=== PATIENT | female | born 1960 | race Caucasian/White ===

== ENCOUNTER → 2016-09-22 | Outpatient (CLI) | payer BC, OTHER ==
[~2016-09-22] MED LIST: ASCO500T16 PO; ATOR-22 PO; ATV/1 PO; BUPR150T47 PO; CALCTAB5 PO; CETI10TA84 PO; CHOL2000 PO; CPXI SQ; CYCL0.052 OPB; GADAVIST IV PRN; MTR500 PO; MULT-506 PO; NRN600 PO; RANI300T PO; RIZA10TA18 PO; RXC5 PO; SNG10 PO; ZCR40 PO; ZLF/100 PO
--- NOTE | 2016-09-22 10:55 | DIAGNOSTIC IMAGING REPORT ---
BRAIN COMBO FOR MS CLINICAL HISTORY: Multiple sclerosis. COMPARISON STUDY: MRI of the brain January 15, 2016. TECHNIQUE: Utilizing 1.5 Mariela magnet and dedicated coil, multiplanar, multiecho imaging of the brain was performed pre and postcontrast administration according to the multiple sclerosis protocol. Injection of 6.8 cc of Gadavist IV was uneventful. FINDINGS: There are no areas of restricted diffusion. No acute intracranial hemorrhage, midline shift or mass effect is present. Ventricular system is normal. Basilar cisterns are patent. There are no extra-axial collections. Flow-voids for the major intracranial vessels are present. Innumerable subcortical and periventricular white matter T2 hyperintense foci are similar to exam of January 15, 2016. No enhancement is identified to suggest active demyelination. Calvarial signal is normal. Orbits and sinuses are unremarkable. There is no intracranial mass. IMPRESSION: 1. No acute intracranial findings. No change in appearance of the brain. 2. No change in innumerable white matter T2 hyperintense foci since MRI of January 15, 2016. These suggest foci of nonspecific demyelination. Electronically signed by: Junior Villegas M.D. 09/22/2016 10:54 AM Dictated Date/Time: 09/22/2016 10:47 AM
--- NOTE | 2016-09-22 11:02 | DIAGNOSTIC IMAGING REPORT ---
MRI OF THE CERVICAL SPINE WITH AND WITHOUT CONTRAST CLINICAL HISTORY: Multiple sclerosis. COMPARISON: MRI of the cervical spine January 20, 2015. TECHNIQUE: Utilizing a 1.5 Mariela magnet and dedicated coil, multiplanar, multiecho imaging of the cervical spine was performed before and after intravenous administration of 6.8 of Gadavist. FINDINGS: This exam is compromised by mild motion artifact. Cervical cord signal is suboptimally assessed on this exam but appears normal. There is no intracanalicular mass or fluid collection. There is no abnormal cord enhancement. Vertebral body heights are maintained. There is no suspicious marrow replacement. Paravertebral soft tissues are unremarkable. C2-C3: The central canal and neural foramen are patent. C3-C4: The central canal is patent. There is mild to moderate narrowing of the right neural foramen due to uncovertebral hypertrophy. C4-C5: The central canal and neural foramen are patent. C5-C6: A small central disc protrusion results in mild narrowing of the central canal. The neural foramen are patent. C6-C7: The central canal and neural foramen are patent. C7-T1: The central canal and neural foramen are patent. IMPRESSION: 1. No cervical cord signal abnormality identified. 2. Study mildly compromised by motion artifact. 3. Mild multilevel degenerative changes of the cervical spine, similar to exam of January 20, 2015. Electronically signed by: Junior Villegas M.D. 09/22/2016 11:01 AM Dictated Date/Time: 09/22/2016 10:55 AM
== END | disposition home or self-care (01) ==
LOC: C.MRIBC 08:40
PROVIDERS: ATTEND Psychiatry & Neurology Neurology
DX: G35 Multiple sclerosis (principal)

== ENCOUNTER → 2016-10-15 | Outpatient (CLI) | payer BC, OTHER ==
[~2016-10-15] MED LIST changes: -GADAVIST IV PRN; -MTR500 PO; -RIZA10TA18 PO; -RXC5 PO; -ZCR40 PO
[2016-10-15 14:41] LABS: BASO % 0.3 %; BASO ABS # 0.02 K/uL (0-0.2); COMPLETE YES; EOS % 4.6 %; HEMATOCRIT 41.9 % (37-47); IG% 0.5 %; LYMPH % 22.6 %; LYMPH ABS # 1.66 K/uL (1.2-3.4); MEAN CELL VOLUME 93.9 fL (80-100); MEAN CORPUSCULAR HEMOGLOBIN 32.3 pg (25-34); MEAN CORPUSCULAR HGB CONC 34.4 g/dl (32-36); MEAN PLATELET VOLUME 9.4 fL (7.4-10.4); MONO % 7.9 %; NEUT % 64.1 %; PLATELET COUNT 217 K/uL (130-400); RED BLOOD COUNT 4.46 M/uL (4.2-5.4); WHITE BLOOD COUNT 7.36 K/uL (4.8-10.8)
[2016-10-15 14:56] LABS: ALT/SGPT 53 U/L (12-78); AST/SGOT 25 U/L (15-37)
== END | disposition home or self-care (01) ==
LOC: C.LABBC 09:55
DX: E78.5 Hyperlipidemia, unspecified (principal)

== ENCOUNTER → 2016-11-18 | Outpatient (CLI) | payer OTHER, BC ==
[~2016-11-18] MED LIST changes: +GADAVIST IV PRN
--- NOTE | 2016-11-18 12:30 | DIAGNOSTIC IMAGING REPORT ---
MRI OF THE THORACIC SPINE COMBO CLINICAL HISTORY: Multiple sclerosis. Lower extremity weakness. COMPARISON STUDY: MRI of the thoracic spine dated 01/26/2010. TECHNIQUE: MRI of the thoracic spine is performed utilizing various T1 and T2-weighted sequences in the axial and sagittal planes. Contrast-enhanced sequences are acquired following the IV administration of 6.5 cc of Gadavist. FINDINGS: Vertebral body height and alignment are maintained throughout the thoracic spine. Normal marrow signal intensity is preserved throughout the visualized bony structures. No destructive bony process is seen. The transverse and spinous processes are intact as imaged. There is mild degenerative disc desiccation and loss of height throughout the thoracic spine. Small posterior disc bulges are seen at T5-T6, T6-T7, and T7-T8. There is no large disc herniation or significant central canal stenosis. No significant neural foraminal stenosis is seen throughout the thoracic spine. Small hemangiomas are again seen in the bodies of T9 and T10. The thoracic spinal cord is normal in morphology and signal intensity. The conus medullaris terminates at the level of L1. There is no abnormal cord enhancement suggested on the postcontrast images. The paraspinous soft tissues are within normal limits. The lung parenchyma is grossly unremarkable but not well evaluated by MRI. IMPRESSION: 1. The thoracic spinal cord is normal in morphology and signal intensity. No abnormal enhancement is suggested on the postcontrast images. 2. Minimal degenerative disc disease as above. There is no disc herniation, central canal stenosis, or neural foraminal narrowing seen throughout the lumbar region. Dictated: 11/18/2016 12:13 PM Transcribed: 11/18/2016 12:30 PM Kavon Electronically signed by: Lee Mittal M.D. 11/18/2016 12:32 PM Dictated Date/Time: 11/18/2016 12:13 PM
== END | disposition home or self-care (01) ==
LOC: C.MRIBC 10:43
PROVIDERS: ATTEND Psychiatry & Neurology Neurology
DX: G35 Multiple sclerosis (principal); R29.898 Other symptoms and signs involving the musculoskeletal system

== ENCOUNTER → 2016-12-27 | Outpatient (CLI) | payer OTHER, BC ==
[~2016-12-27] MED LIST changes: -GADAVIST IV PRN
--- NOTE | 2016-12-29 12:33 | MAMMOGRAPHY REPORT ---
BILATERAL DIGITAL SCREENING MAMMOGRAM TOMOSYNTHESIS WITH CAD: 12/27/2016 CLINICAL HISTORY: Routine screening. Patient has no complaints. TECHNIQUE: Breast tomosynthesis in addition to standard 2D mammography was performed. Current study was also evaluated with a Computer Aided Detection (CAD) system. COMPARISON: Comparison is made to exams dated: 12/25/2015 mammogram, 07/30/2015 mammogram, 01/27/2015 mariah mogram, 12/30/2014 mammogram, 12/23/2014 mammogram, and 12/20/2013 mammogram - [facility] er. BREAST COMPOSITION: There are scattered areas of fibroglandular density in both breasts. FINDINGS: The breast parenchymal pattern is similar to prior exams. No suspicious mass, architectur al distortion or cluster of microcalcifications is seen. IMPRESSION: ACR BI-RADS CATEGORY 1: NEGATIVE There is no mammographic evidence of malignancy. A 1 year screening mammogram is recommended. The pa tient will receive written notification of the results. Approximately 10% of breast cancers are not detected with mammography. A negative mammographic report should not delay biopsy if a clinically suggestive mass is present. Antonietta Santana M.D. ay/:12/27/2016 16:29:34 Banking Supervisor: Trupti BRAGA(Kali)([place]al)([place]), [facility] letter sent: Normal 1/2 BI-RADS Code: ACR BI-RADS Category 1: Negative
== END | disposition home or self-care (01) ==
LOC: C.MAMM 11:22
DX: Z12.31 Encounter for screening mammogram for malignant neoplasm of breast (principal)

== ENCOUNTER → 2017-03-25 | Outpatient (CLI) | payer OTHER, BC | END | disposition home or self-care (01) | LOC: C.RDSM 07:40 | PROVIDERS: ATTEND Physical Medicine & Rehabilitation Sports Medicine | DX: M25.561 Pain in right knee (principal) ==

== ENCOUNTER → 2017-04-13 | Outpatient (CLI) | payer BC, OTHER ==
[2017-04-13 11:39] LABS: ALT/SGPT 53 U/L (12-78); AST/SGOT 29 U/L (15-37); BLOOD UREA NITROGEN 16 mg/dl (7-18); BUN/CREATININE RATIO 14.6 (10-20); CALCIUM 9.2 mg/dl (8.5-10.1); CARBON DIOXIDE 27 mmol/L (21-32); CHLORIDE 105 mmol/L (98-107); CHOLESTEROL 133 mg/dl (0-200); CREATININE 1.07 mg/dl (0.60-1.20); GLUCOSE 90 mg/dl (70-99); POTASSIUM 4.2 mmol/L (3.5-5.1); SODIUM 139 mmol/L (136-145); TRIGLYCERIDES 116 mg/dl (0-150); VERY LOW DENSITY LIPOPROT CALC 23 mg/dl
[2017-04-13 11:42] LABS: CHOLESTEROL/HDL RATIO 2.7; HDL CHOLESTEROL 49 mg/dl; LDL CHOLESTEROL CALCULATED 61 mg/dl
== END | disposition home or self-care (01) ==
LOC: C.LABBC 08:54
DX: G35 Multiple sclerosis (principal); E78.5 Hyperlipidemia, unspecified; E55.9 Vitamin D deficiency, unspecified

== ENCOUNTER → 2017-10-07 | Outpatient (CLI) | payer BC, OTHER ==
[2017-10-07 13:45] LABS: BASO % 0.6 %; BASO ABS # 0.04 K/uL (0-0.2); EOS % 4.8 %; EOS ABS # 0.34 K/uL (0-0.5); HEMATOCRIT 41.6 % (37-47); HEMOGLOBIN 14.1 g/dL (12.0-16.0); IG# 0.02 K/uL (0.00-0.02); LYMPH % 24.5 %; LYMPH ABS # 1.75 K/uL (1.2-3.4); MEAN CELL VOLUME 91.6 fL (80-100); MEAN CORPUSCULAR HEMOGLOBIN 31.1 pg (25-34); MEAN CORPUSCULAR HGB CONC 33.9 g/dl (32-36); MEAN PLATELET VOLUME 9.6 fL (7.4-10.4); MONO % 8.3 %; MONO ABS # 0.59 K/uL (0.11-0.59); NEUT % 61.5 %; PLATELET COUNT 244 K/uL (130-400); RED CELL DISTRIBUTION WIDTH CV 12.9 % (11.5-14.5); RED CELL DISTRIBUTION WIDTH SD 43.3 fL (36.4-46.3); WHITE BLOOD COUNT 7.14 K/uL (4.8-10.8)
[2017-10-07 14:19] LABS: ALBUMIN 3.9 gm/dl (3.4-5.0); ALT/SGPT 41 U/L (12-78); AST/SGOT 25 U/L (15-37); BLOOD UREA NITROGEN 15 mg/dl (7-18); CALCIUM 9.4 mg/dl (8.5-10.1); CARBON DIOXIDE 26 mmol/L (21-32); CREATININE 1.05 mg/dl (0.60-1.20); GLUCOSE 93 mg/dl (70-99); POTASSIUM 3.9 mmol/L (3.5-5.1); SODIUM 139 mmol/L (136-145); TOTAL PROTEIN 6.7 gm/dl (6.4-8.2)
[2017-10-07 14:20] LABS: ALKALINE PHOSPHATASE 75 U/L (45-117)
[2017-10-17 16:44] LABS: VARICELLA ZOS VIR IGM AB <=0.90 (<=0.90)
== END | disposition home or self-care (01) ==
LOC: C.LABBC 09:10
DX: G35 Multiple sclerosis (principal)

== ENCOUNTER → 2017-10-11 | Outpatient (CLI) | payer BC, OTHER | END | disposition home or self-care (01) | LOC: C.CPL 12:00 | PROVIDERS: ATTEND Psychiatry & Neurology Neurology | DX: G35 Multiple sclerosis (principal) ==

== ENCOUNTER → 2017-10-17 | Outpatient (CLI) | payer BC, OTHER ==
[~2017-10-17] MED LIST changes: +GADAVIST IV PRN
--- NOTE | 2017-10-17 14:28 | DIAGNOSTIC IMAGING REPORT ---
MRI CERVICAL SPINE COMBO CLINICAL HISTORY: G35 Multiple sclerosis MRI TECHNIQUE: Sagittal and axial T1, T2 and STIR images were obtained. Images were acquired before and after the administration of 6.5 cc of intravenous Gadavist. COMPARISON STUDY: September 22, 2016 There are no suspicious areas of marrow replacement. No intrinsic cervical cord lesions are visualized. C2-3: There is no evidence of disc bulge or focal herniation. There is no spinal or foraminal stenosis. C3-4: There is a circumferential disc bulge. There is slight effacement of the anterior subarachnoid space. There is mild right-sided foraminal narrowing C4-5: There are no disc bulges or focal herniations. There is no spinal or foraminal stenosis. C5-6 :There is a mild circumferential disc bulge. There is no significant spinal or foraminal stenosis C6-7: There is no evidence of disc bulge or focal herniation. There is no evidence of spinal or foraminal stenosis. C7-T1: There is no evidence of disc bulge or focal herniation. There is no evidence of spinal or foraminal stenosis. Postcontrast images reveal no pathologically enhancing lesions. IMPRESSION: 1. Mild multilevel spondylitic changes 2. No cervical cord lesions identified Electronically signed by: Feliciano Bender M.D. 10/17/2017 2:26 PM Dictated Date/Time: 10/17/2017 2:23 PM
--- NOTE | 2017-10-17 14:31 | DIAGNOSTIC IMAGING REPORT ---
MRI OF THE BRAIN COMBO CLINICAL HISTORY: Multiple sclerosis. COMPARISON STUDY: Previous MRIs of the brain, most recently dated 09/22/2016. TECHNIQUE: MRI of the brain was performed utilizing various T1 and T2-weighted sequences in the axial, sagittal, and coronal planes. Contrast-enhanced sequences were acquired following the administration of 6.5 cc of Gadavist. The examination is performed using the multiple sclerosis protocol. FINDINGS: Brain parenchyma: There are numerous T2 hyperintense plaques scattered throughout the subcortical and periventricular white matter. The appearance is consistent with the reported clinical history of multiple sclerosis. No abnormal enhancement is identified on the postcontrast sequences. There is no hemorrhage or mass effect. There is no restricted diffusion to suggest acute ischemia. No enhancing mass lesion is identified on the postcontrast images. Manzano-white matter differentiation is preserved. No extra-axial fluid collection is seen. The cerebellar tonsils are normal in configuration. Ventricles, sulci, and cisterns: Normal in configuration. Pituitary and sella: Unremarkable. Intracranial vasculature: Normal flow voids are maintained at the skull base. Orbits: The bony orbits are grossly intact. Orbital contents are normal in appearance. Sinuses and mastoids: Clear. Calvarium: Unremarkable. Cervical cord: Partially visualized cervical spinal cord is normal in morphology and signal intensity. IMPRESSION: 1. No acute intracranial abnormality. 2. Unchanged appearance of extensive white matter abnormality as compared to prior studies. The appearance is consistent with the reported clinical history of multiple sclerosis. No abnormal enhancement is seen to suggest active demyelination. Electronically signed by: Lee Mittal M.D. 10/17/2017 2:30 PM Dictated Date/Time: 10/17/2017 2:25 PM
== END | disposition home or self-care (01) ==
LOC: C.MRI 12:18
PROVIDERS: ATTEND Psychiatry & Neurology Neurology
DX: G35 Multiple sclerosis (principal)

== ENCOUNTER → 2017-10-31 | Outpatient (CLI) | payer BC, OTHER ==
[~2017-10-31] MED LIST changes: -GADAVIST IV PRN
== END | disposition home or self-care (01) ==
LOC: C.LABBC 10:23
DX: M85.9 Disorder of bone density and structure, unspecified (principal); R53.83 Other fatigue; E55.9 Vitamin D deficiency, unspecified

== ENCOUNTER → 2017-11-03 | Outpatient (CLI) | payer BC, OTHER | END | disposition home or self-care (01) | LOC: C.CPL 16:48 | PROVIDERS: ATTEND Psychiatry & Neurology Neurology | DX: G35 Multiple sclerosis (principal) ==

== ENCOUNTER 2019-02-16 15:47 | Observation (INO) ==
[2019-02-16] MEDS ORDERED: PROCHLORPERAZINE 2 ML IV ONE (17:02)
[2019-02-16] MEDS ORDERED: DiphenhydrAMINE HCL 50 MG/ML VIAL IV STA (17:02)
[2019-02-16] MEDS ORDERED: SODIUM CHLORIDE 0.9% 1000ML 1,000 ML IV ONE (17:02)
--- NOTE | 2019-02-16 17:16 | Emergency Department Note ---
History of Present Illness General Chief complaint: Illness Stated complaint: STOMACH VIRUS Source: patient Mode of arrival: ambulatory Limitations: no limitations History of Present Illness Provider Complaint: + nausea and + abdominal pain Onset (ago): day(s) 3 Description of Vomiting: + none Description of Diarrhea: + none Associated Abdominal Pain: Yes Location of pain: + epigastric Radiation: + does not radiate Severity: moderate Maximum Pain Intensity: 7 Current Pain Intensity: 7 Quality: + cramping, + aching and + sharp Pain Consistency: + intermittent Relieved By: + none Exacerbated By: + eating Context: + possible food poisoning and + history of abdominal surgery Associated symptoms: + loss of appetite and + malaise Treatments prior to arrival: + other (Zofran) HPI Narrative: This 58-year-old female patient presents the ED today, ambulatory, accompanied by her . She states she was here 3 days ago with complaints of abdominal pain, nausea, and watery diarrhea. She had eaten a meal with her the night before, and both she and her had the symptoms. The patient states her symptoms have resolved, but she continues to experience epigastric abdominal pain and nausea. She states her diarrhea has subsided and she has not had formed stool for the past 2 days. She feels that the pain is not improving. She has been eating crackers and drinking Gatorade, but does not feel that she is eating or drinking enough. She denies any fevers or vomiting. She does report nausea. She was taking Zofran which was prescribed, but that was not helping. She was also complaining of some symptoms associated with her MS and is encouraged to take steroids, but never picked them up. The patient denies any chest pain, dyspnea, headache, numbness, tingling, weakness, flank pain, urinary symptoms, or other associated symptoms. She does report dizziness. She states her MS pseudoseizures have subsided. Home Medications Home Medications Medication Instructions Recorded Confirmed Type Restasis 1 drp OPB BID 04/21/18 02/16/19 History Vitamin D3 4,000 unit PO DAILY 04/21/18 02/16/19 History aripiprazole [Abilify] 2 mg PO QAM 04/21/18 02/16/19 History ascorbic acid (vitamin C) [Vitamin 1,000 mg PO DAILY 04/21/18 02/16/19 History C] atorvastatin 20 mg PO HS 04/21/18 02/16/19 History black cohosh 540 mg PO BID 04/21/18 02/16/19 History bupropion HCl 150 mg PO BID 04/21/18 02/16/19 History calcium carbonate [Calcium 600] 1,200 mg PO DAILY 04/21/18 02/16/19 History cetirizine [Zyrtec] 10 mg PO QAM 04/21/18 02/16/19 History gabapentin 600 mg PO TID 04/21/18 02/16/19 History montelukast [Singulair] 10 mg PO QAM 04/21/18 02/16/19 History multivitamin 1 tab PO DAILY 04/21/18 02/16/19 History ranitidine HCl 300 mg PO BID 04/21/18 02/16/19 History sertraline [Zoloft] 200 mg PO QAM 04/21/18 02/16/19 History melatonin 5 mg PO HS PRN 10/25/18 02/16/19 History Symbicort 2 puff INHALATION BID 11/23/18 02/16/19 History levalbuterol HFA 45 mcg/actuation 2 inh INHALATION BID PRN 01/30/19 02/16/19 History aerosol inhaler levothyroxine 75 mcg capsule 75 mcg PO QAM 01/30/19 02/16/19 History lorazepam 1 mg tablet 1 mg PO TID PRN tab 01/30/19 02/16/19 History omeprazole 40 mg PO QAM 02/16/19 02/16/19 History Allergies Allergy/AdvReac Type Severity Reaction Status Date / Time mivacurium Allergy Severe TONGUE Verified 02/16/19 18:16 SWELLS morphine Allergy Severe LOCAL Verified 02/16/19 18:16 REACTION TO IV PUSH clindamycin Allergy Intermediate HIVES Verified 02/16/19 18:16 Quinolones Allergy Intermediate HIVES Verified 02/16/19 18:16 cefaclor Allergy Mild RASH, HAS Verified 02/16/19 18:16 TOLERATED AUGMENTIN W/O RXN tetracycline Allergy Mild Unknown Verified 02/16/19 18:16 carbamazepine Allergy Unknown Unknown Verified 02/16/19 18:16 cevimeline Allergy Unknown anxious Verified 02/16/19 18:16 Cipro Allergy Unknown itchy Verified 09/29/16 13:02 ciprofloxacin Allergy Unknown itchy Verified 02/16/19 18:16 doxycycline Allergy Unknown sores on Verified 02/16/19 18:16 tongue fexofenadine Allergy Unknown itchy Verified 02/16/19 18:16 fish oil Allergy Unknown tongue Verified 02/16/19 18:16 swells and trouble breathing meloxicam Allergy Unknown rash Verified 02/16/19 18:16 metoclopramide Allergy Unknown itchy Verified 02/16/19 18:16 phenytoin Allergy Unknown dizzy Verified 02/16/19 18:16 pregabalin Allergy Unknown rash Verified 02/16/19 18:16 vancomycin Allergy Unknown RASH Verified 02/16/19 18:16 azithromycin Allergy Swelling Verified 02/16/19 18:16 of Lip/Tongue/Throat Flu Virus Vaccine AdvReac Severe excerbation Uncoded 02/16/19 18:16 of multiple sclerosis Past Med/Surg History Medical History Asthma (Chronic) HX OF CHRONIC BRONCHIAL ASTHMA. PT IS CURRENTLY FOLLOWING [facility]. AND HAD BRONCH OCTOBER 2018 Diverticulitis (Chronic) Pseudoseizure (Acute) R/T AN ACUTE MS ATTACK, STATES THAT WITH AN ATTACK HER EXTREMITIES "FLAIL". PT HAS HAD TESTING/NEURO WORK UP MS (multiple sclerosis) (Chronic) Diverticular disease GERD (gastroesophageal reflux disease) Hyperlipidemia Hypothyroidism Surgical History History of arthroscopy RT KNEE 2015 History of bowel resection History of bronchoscopy History of colonoscopy Social History Preferred Language: Estonian Communication Ability: Effective Payroll Benefits Clerk Required: No Beliefs That Will Affect Care: None marital status: Current Living Situation: Spouse current occupational status: disabled Other Information That Helps Us Care for You: No Feels Safe at Home: Yes Safety Concerns: Feels Safe At This Time Smoking Status: Never smoker Cigarettes Per Day: 0 ; Second Hand Exposure: No ; Hx Alcohol Use: No Hx Substance Use: No Review of Systems A total of 10 systems reviewed and were otherwise negative Physical Exam Vital Signs: Vital Signs - 24 hr 02/16/19 16:16 02/16/19 17:35 02/16/19 17:39 Temperature 36.6 C Temperature Source Oral Sepsis Recent Feve r Within 48 Hours No Sepsis Action Take n by Nursing No Action Required Pulse Rate 71 71 68 Pulse Rate [Right] Pulse Rate from Sp O2 Sensor Pulse Rhythm Regular Regular Pulse Rhythm [Righ t] Pulse Strength Normal Pulse Strength [Ri ght] Respiratory Rate 16 16 20 Respiratory Effort / Characteristics Respiratory Depth Normal Respiratory Patter n Regular Blood Pressure 130/84 149/85 H Blood Pressure [Ri ght Arm] Blood Pressure Viktoria n 99 106 Blood Pressure Viktoria n [Right Arm] Blood Pressure Pos ition Sitting Blood Pressure Pos ition [Right Arm] Pulse Oximetry 92 92 96 Oxygen Delivery Me thod Room Air Room Air Room Air 02/16/19 18:00 02/16/19 18:30 02/16/19 20:00 Temperature Temperature Source Sepsis Recent Feve r Within 48 Hours Sepsis Action Take n by Nursing Pulse Rate 70 74 Pulse Rate [Right] 75 Pulse Rate from Sp O2 Sensor 73 75 Pulse Rhythm Pulse Rhythm [Righ t] Regular Pulse Strength Pulse Strength [Ri ght] Normal Respiratory Rate 19 20 16 Respiratory Effort / Characteristics Non-Labored Sponta neous Respiratory Depth Normal Respiratory Patter n Blood Pressure 142/95 H 136/81 Blood Pressure [Ri ght Arm] 144/91 H Blood Pressure Viktoria n 110 99 Blood Pressure Vitkoria n [Right Arm] 108 Blood Pressure Pos ition Blood Pressure Pos ition [Right Arm] Lying Pulse Oximetry 96 96 96 Oxygen Delivery Me thod Room Air Room Air Room Air Physical Exam: VITALS: Vitals are noted on the nurse's note and reviewed by myself. Vital signs stable. GENERAL: This is a 58-year-old white female, in no acute distress, nondiaphoretic, well-developed well-nourished. SKIN: The skin was without rashes, erythema, edema, or bruising. There is no tenting of the skin. Capillary reflex less than 2 seconds. HEAD: Normocephalic atraumatic. EARS: External auditory canals clear, tympanic membranes pearly sanchez without erythema or effusion bilaterally. EYES: Pupils equal round and reactive to light and accommodation. Conjunctivae without injection, sclerae without icterus. Extraocular movements intact. NOSE: Patent, turbinates without inflammation or discharge. No sinus tenderness. MOUTH: Mucous membranes moist. Tonsils are not enlarged. Pharynx without erythema or exudate. Uvula midline. Airway patent. Tongue does not deviate. NECK: Supple without nuchal rigidity. No lymphadenopathy. No thyromegaly. Cervical spine is nontender. No JVD. HEART: Regular rate and rhythm without murmurs gallops or rubs. LUNGS: Clear to auscultation bilaterally without wheezes, rales or rhonchi. No dullness to percussion. No retractions or accessory muscle use. ABDOMEN: Positive bowel sounds x 4. Normal tympanic percussion. Epigastric tenderness palpation. Abdomen is otherwise soft, nontender, without masses or organomegaly. Manzano sign negative. No guarding or rebound tenderness. No CVA tenderness bilaterally. MUSCULOSKELETAL: No muscle atrophy, erythema, or edema noted. Full range of motion without joint tenderness in all extremities. No tenderness to palpation. Normal gait. Strength 5/5 throughout. NEURO: Patient was alert and oriented to person place and time. Normal sensat ion to light and sharp touch. No focal neurological deficits. Course The patient was seen and evaluated as above. IV access obtained, labs drawn. Patient medicated with IV fluids, Compazine, Benadryl. EKG reviewed by myself. X-rays performed and reviewed by myself and radiologist as above. Labs reviewed by myself. I did note positive troponin. CT scan of the abdomen/pelvis performed and reviewed by myself and radiologist as above. I discussed the findings with the patient at bedside. She was reassessed and notes some improvement of her nausea, but ongoing epigastric pain. Discussed the positive troponin and my concern for possible cardiac etiology of some of her symptoms. Did recommend admission. Patient was agreeable. I discussed the case with my attending. I discussed the case with Dr. Gomez, [facility] hospitalist. He did agree to see and evaluate the patient for admission. Repeat troponin and EKG reviewed. Please see hospitalist dictation regarding ongoing management care of this patient. Administered Medications Atorvastatin Calcium (Lipitor) 20 mg PO HS REHAN Stop: 03/18/19 22:56 Last Admin: 02/16/19 23:49 Dose: 20 mg Documented by: [id number] Bupropion HCl (Wellbutrin-Sr) 150 mg PO BID REHAN Stop: 03/18/19 22:56 Last Admin: 02/16/19 23:49 Dose: 150 mg Documented by: [id number] Gabapentin (Neurontin) 600 mg PO TID REHAN Stop: 03/18/19 22:56 Last Admin: 02/16/19 23:49 Dose: 600 mg Documented by: [id number] Sodium Chloride (Nss 1000ml) 1,000 mls @ 110 mls/hr IV .Q9H6M REHAN Stop: 03/18/19 22:56 Last Admin: 02/16/19 23:13 Dose: 110 mls/hr Documented by: [id number] Acetaminophen (Ofirmev) 65 mls @ 200 mls/hr IV Q6H REHAN Stop: 03/18/19 23:29 Last Admin: 02/16/19 23:54 Dose: Not Given Documented by: [id number] Ioversol (Optiray 320 100ml) 92 ml IV ONCE PRN PRN Reason: Interaction Checking Stop: 02/20/19 19:48 Last Admin: 02/16/19 19:49 Dose: 92 ml Documented by: [id number] Lorazepam (Ativan) 1 mg PO TID PRN PRN Reason: Anxiety Stop: 03/18/19 22:56 Last Admin: 02/16/19 23:57 Dose: 1 mg Documented by: [id number] Ranitidine HCl (Zantac) 300 mg PO BID REHAN Stop: 03/18/19 22:56 Last Admin: 02/16/19 23:49 Dose: 300 mg Documented by: [id number] Discontinued Medications Diphenhydramine HCl (Benadryl) 25 mg IV NOW STA Stop: 02/16/19 17:03 Last Admin: 02/16/19 18:27 Dose: 25 mg Documented by: [id number] Prochlorperazine (Compazine) 2 mls @ 1 mls/min IV ONE ONE Stop: 02/16/19 17:03 Last Admin: 02/16/19 18:27 Dose: 1 mls/min Documented by: [id number] Sodium Chloride (Nss 1000ml) 1,000 mls @ 999 mls/hr IV .Q1H1M ONE Stop: 02/16/19 18:02 Last Infusion: 02/16/19 18:55 Dose: 0 mls/hr Documented by: [id number] Admin: 02/16/19 17:43 Dose: 999 mls/hr Documented by: [id number] Acetaminophen (Ofirmev) 65 mls @ 200 mls/hr IV NOW ONE Stop: 02/16/19 23:50 Last Infusion: 02/17/19 00:17 Dose: 0 mls/hr Documented by: [id number] Admin: 02/16/19 23:50 Dose: 200 mls/hr Documented by: [id number] Medical Decision Making Differential Diagnosis + gastroenteritis, + food borne illness, + infections, + appendicitis, + diverticulitis, + inflammatory bowel disease, + GI bleed, + biliary pathology, + nausea, + vomiting, + diarrhea and + abdominal pain Medical Records Attestation: I reviewed the patient's medical records. Home Medications Current Medication List: was personally reviewed by de Laboratory Data Attestation: I reviewed the patient's lab results. No leukocytosis, anemia, thrombocytopenia. Renal, hepatic function, and electrolytes without significant abnormality. Initial troponin elevated at 0.098. Repeat troponin elevated at 0.104. Urinalysis positive for 3+ leukocyte esterase, white blood cells, epithelial cells. Lipase 77. Result diagrams: 02/16/19 17:37 02/16/19 17:37 Lab Results 02/16/19 02/16/19 02/16/19 Range/Units 17:37 17:37 20:00 WBC 8.06 (4.8-10.8) K/uL RBC 5.23 (4.2-5.4) M/uL Hgb 16.8 H (12.0-16.0) g/dL Hct 47.2 H (37-47) % MCV 90.2 (80-100) fL MCH 32.1 (25-34) pg MCHC 35.6 (32-36) g/dL RDW Std Deviation 40.7 (36.4-46.3) fL RDW Coeff of Rocio 12.4 (11.5-14.5) % Plt Count 238 (130-400) K/uL MPV 9.9 (7.4-10.4) fL Immature Gran % (Auto) 0.2 % Neut % (Auto) 55.9 % Lymph % (Auto) 32.6 % Ford % (Auto) 8.1 % Eos % (Auto) 2.7 % Baso % (Auto) 0.5 % Immature Gran # (Auto) 0.02 (0.00-0.02) K/uL Neut # (Auto) 4.50 (1.4-6.5) K/uL Lymph # (Auto) 2.63 (1.2-3.4) K/uL Ford # (Auto) 0.65 H (0.11-0.59) K/uL Eos # (Auto) 0.22 (0-0.5) K/uL Baso # (Auto) 0.04 (0-0.2) K/uL Sodium 141 (136-145) mmol/L Potassium 4.1 (3.5-5.1) mmol/L Chloride 106 (98-107) mmol/L Carbon Dioxide 27 (21-32) mmol/L Anion Gap 8.0 (3-11) BUN 18 (7-18) mg/dl Creatinine 1.08 (0.6-1.2) mg/dl Est Cr Clr Drug Dosing Not Reportable Est GFR ( Amer) 66.5 Est GFR (Non-Af Amer) 57.3 BUN/Creatinine Ratio 16.4 (10-20) Glucose 86 (70-99) mg/dl Calcium 9.2 (8.5-10.1) mg/dl Total Bilirubin 0.5 (0.2-1) mg/dl AST 38 H (15-37) U/L ALT 80 H (12-78) U/L Alkaline Phosphatase 86 (45-117) U/L Troponin I 0.098 H* (0-0.045) ng/ml Total Protein 7.7 (6.4-8.2) gm/dl Albumin 4.2 (3.4-5.0) gm/dl Globulin 3.5 (2.5-4.0) gm/dl Albumin/Globulin Ratio 1.2 (0.9-2) Lipase 77 (73-393) U/L Urine Color Yellow Urine Appearance Cloudy A (Clear) Urine pH 6.5 (4.5-7.5) Ur Specific Benton 1.013 (1.000-1.030) Urine Protein Negative (Negative) Urine Glucose (UA) Negative (Negative) Urine Ketones Negative (Negative) Urine Blood Trace H (Negative) Urine Nitrite Negative (Negative) Urine Bilirubin Negative (Negative) Urine Urobilinogen Negative (Negative) Ur Leukocyte Esterase 3+ H (Negative) Urine WBC (Auto) >30 H (0-5) /hpf Urine RBC (Auto) 0-4 (0-4) /hpf U Hyaline Cast (Auto) 1-5 (0-5) /lpf U Epithel Cells (Auto) >30 H (0-5) /lpf Urine Bacteria (Auto) Negative (Negative) Hepatitis C Ab Screen (Neg) 02/16/19 02/16/19 Range/Units 20:16 20:16 WBC (4.8-10.8) K/uL RBC (4.2-5.4) M/uL Hgb (12.0-16.0) g/dL Hct (37-47) % MCV (80-100) fL MCH (25-34) pg MCHC (32-36) g/dL RDW Std Deviation (36.4-46.3) fL RDW Coeff of Rocio (11.5-14.5) % Plt Count (130-400) K/uL MPV (7.4-10.4) fL Immature Gran % (Auto) % Neut % (Auto) % Lymph % (Auto) % Ford % (Auto) % Eos % (Auto) % Baso % (Auto) % Immature Gran # (Auto) (0.00-0.02) K/uL Neut # (Auto) (1.4-6.5) K/uL Lymph # (Auto) (1.2-3.4) K/uL Ford # (Auto) (0.11-0.59) K/uL Eos # (Auto) (0-0.5) K/uL Baso # (Auto) (0-0.2) K/uL Sodium (136-145) mmol/L Potassium (3.5-5.1) mmol/L Chloride (98-107) mmol/L Carbon Dioxide (21-32) mmol/L Anion Gap (3-11) BUN (7-18) mg/dl Creatinine (0.6-1.2) mg/dl Est Cr Clr Drug Dosing Est GFR ( Amer) Est GFR (Non-Af Amer) BUN/Creatinine Ratio (10-20) Glucose (70-99) mg/dl Calcium (8.5-10.1) mg/dl Total Bilirubin (0.2-1) mg/dl AST (15-37) U/L ALT (12-78) U/L Alkaline Phosphatase (45-117) U/L Troponin I 0.104 H* (0-0.045) ng/ml Total Protein (6.4-8.2) gm/dl Albumin (3.4-5.0) gm/dl Globulin (2.5-4.0) gm/dl Albumin/Globulin Ratio (0.9-2) Lipase (73-393) U/L Urine Color Urine Appearance (Clear) Urine pH (4.5-7.5) Ur Specific Benton (1.000-1.030) Urine Protein (Negative) Urine Glucose (UA) (Negative) Urine Ketones (Negative) Urine Blood (Negative) Urine Nitrite (Negative) Urine Bilirubin (Negative) Urine Urobilinogen (Negative) Ur Leukocyte Esterase (Negative) Urine WBC (Auto) (0-5) /hpf Urine RBC (Auto) (0-4) /hpf U Hyaline Cast (Auto) (0-5) /lpf U Epithel Cells (Auto) (0-5) /lpf Urine Bacteria (Auto) (Negative) Hepatitis C Ab Screen Neg (Neg) Imaging Data Radiologist's Impression: XR chest 1V portable CLINICAL HISTORY: epigastric pain COMPARISON STUDY: Chest radiograph February 13, 2019. FINDINGS: Lung volumes are normal. Lungs are clear. There is no pneumothorax or pleural effusion. Cardiac size is normal. Mediastinal contours are normal. There is no evidence for pulmonary edema. Minimal bibasilar opacities favor atelectasis. IMPRESSION: No acute cardiopulmonary findings. Electronically signed by: Junior Villegas M.D. 02/16/2019 5:17 PM ABDOMINAL ULTRASOUND, RIGHT UPPER QUADRANT HISTORY: RUQ/epigastric pain. COMPARISON: CT of the abdomen and pelvis September 15, 2014. FINDINGS: This exam is significantly compromised by suboptimal penetration. Hepatic echogenicity is increased. No hepatic lesions are identified. There is no biliary ductal dilatation. The common bile duct measures 4 mm in caliber. No gallstones are identified. There is no gallbladder wall thickening. Trace sludge within the gallbladder. The pancreatic body is normal. The head and tail are obscured. There is no right hydronephrosis. IMPRESSION: 1. No gallstones or biliary ductal dilatation. Trace sludge within the gallbladder. 2. Fatty infiltration of the liver. 3. Study compromised by suboptimal penetration. Electronically signed by: Junior Villegas M.D. 02/16/2019 7:[address] OF THE ABDOMEN AND PELVIS WITH CONTRAST CLINICAL HISTORY: epigastric abdominal pain, nausea COMPARISON STUDY: CT of the abdomen and pelvis September 15, 2014. Abdominal ultrasound performed earlier today. TECHNIQUE: Following IV administration of 92 mL of Optiray-320, axial images of the abdomen and pelvis were obtained from the lung bases to the proximal femurs. Images were reviewed in the axial, sagittal, and coronal planes. IV contrast was administered without complication. Automated exposure control was utilized for the study. A dose lowering technique was utilized adhering to the principles of ALARA. Oral contrast was administered. CT DOSE: 420.12 mGy.cm FINDINGS: Fatty infiltration of the liver is noted. The spleen, adrenal glands, kidneys and pancreas are normal. There is no biliary or pancreatic ductal dilatation. There is no evidence for a bowel obstruction. The appendix is normal. Caliber and wall thickness of small and large bowel are normal. An anastomosis within the distal colon is noted. No peripancreatic or pericholecystic infiltration is present. There is no ascites or lymphadenopathy. There are no suspicious osseous lesions. Major vasculature is patent. There is no hydronephrosis. IMPRESSION: 1. No acute process within the abdomen or pelvis. 2. Normal appendix. No bowel obstruction. 3. Fatty infiltration of the liver. Electronically signed by: Junior Villegas M.D. 02/16/2019 7:58 PM ECG Data Attestation: I personally reviewed and interpreted this ECG as follows: Indication: abdominal pain Rate (beats per minute): 68 Rhythm: normal sinus Findings: no T-wave inversion, no ST elevation, no acute ischemic change and no ectopy Comparison ECG Date: from (02/13/19) Change: no significant change Additional Comments: Repeat EKG at 19:56 reviewed by myself shows a normal sinus rhythm with a ventricular rate of 77 bpm. No acute ischemic changes. No ST elevation. No ectopy. Blood Pressure Blood Pressure Findings: Normal blood pressure MDM Narrative This 58-year-old female patient presents the ED with complaints of nausea, diarrhea, and epigastric abdominal tenderness. Symptoms have been ongoing for approximately 3 days, and were initially thought to be foodborne. The patient states she is not feeling any better and is having difficulty keeping down food and fluids. Her diarrhea has improved and she has been experiencing more formed stools over the past few days. She denies any chest pain or dyspnea, however her troponin while here in the ED was elevated at 0.098. There were no ST changes, and at no point did the patient experience any chest pain or dyspnea. Given the patient's symptoms, I am unable to rule out cardiac etiology, but still highly suspect GI etiology, possibly complicated by the patient's MS. I did recommend admission for further evaluation of the symptoms and the elevated troponin. The patient was agreeable. I did discuss the case with the [facility] hospitalist physician. Please see hospitalist dictation regarding ongoing management care of this patient. The chart was completed utilizing [employer] Speech voice recognition software. Gra mmatical errors, random word insertions, pronoun errors, and incomplete sentences are an occasional consequence of this system due to software limitations, ambient noise, and hardware issues. Any formal questions or concerns about the content, text, or information contained within the body of this dictation should be directly addressed to the provider for clarification. Impression & Plan Nausea, MS (multiple sclerosis), Cardiac enzymes elevated Discharge Plan Visit Data *Final* Discharge Date/Time: 02/16/19 22:34 Chief Complaint: Illness Stated Complaint: STOMACH VIRUS ED Provider: Nnamdi Estes ED Midlevel Provider: Zohra Alexandra Discharge Problem: Nausea, MS (multiple sclerosis), Cardiac enzymes elevated Patient Disposition: Admitted As Inpatient Condition: Good Discharge Instructions Interventions: ED Discharge Assessment Last Done: 02/16/19 22:34
--- NOTE | 2019-02-16 17:18 | XRay Report ---
XR chest 1V portable CLINICAL HISTORY: epigastric pain COMPARISON STUDY: Chest radiograph February 13, 2019. FINDINGS: Lung volumes are normal. Lungs are clear. There is no pneumothorax or pleural effusion. Car diac size is normal. Mediastinal contours are normal. There is no evidence for pulmonary edema. Minim al bibasilar opacities favor atelectasis. IMPRESSION: No acute cardiopulmonary findings. Electronically signed by: Junior Villegas M.D. 02/16/2019 5:17 PM
[2019-02-16 17:49] LABS: Basophils # (auto) 0.04 K/uL (0-0.2); Basophils % (auto) 0.5 %; Eosinophils # (auto) 0.22 K/uL (0-0.5); Eosinophils % (auto) 2.7 %; Hematocrit (blood only) 47.2 % (37-47); Hemoglobin 16.8 g/dL (12.0-16.0); Immature Granulocytes # (auto) 0.02 K/uL (0.00-0.02); Immature Granulocytes % (auto) 0.2 %; Lymphocytes # (auto) 2.63 K/uL (1.2-3.4); Lymphocytes % (auto) 32.6 %; Mean Corpuscular Hemoglobin 32.1 pg (25-34); Mean Corpuscular Hgb Conc 35.6 g/dL (32-36); Mean Corpuscular Volume 90.2 fL (80-100); Mean Platelet Volume 9.9 fL (7.4-10.4); Monocytes # (auto) 0.65 K/uL (0.11-0.59); Monocytes % (auto) 8.1 %; Neutrophils % (auto) 55.9 %; Platelet Count 238 K/uL (130-400); RDW Coefficient of Variation 12.4 % (11.5-14.5); RDW Standard Deviation 40.7 fL (36.4-46.3); Red Blood Count 5.23 M/uL (4.2-5.4); White Blood Count 8.06 K/uL (4.8-10.8)
[2019-02-16 18:09] LABS: Alanine Aminotransferase 80 U/L (12-78); Albumin Level 4.2 gm/dl (3.4-5.0); Aspartate Aminotransferase 38 U/L (15-37); BUN Creatinine Ratio 16.4 (10-20); Blood Urea Nitrogen 18 mg/dl (7-18); Calcium 9.2 mg/dl (8.5-10.1); Carbon Dioxide 27 mmol/L (21-32); Chloride 106 mmol/L (98-107); Est GFR (African American) 66.5; Est GFR (Non-African American) 57.3; Glucose 86 mg/dl (70-99); Lipase 77 U/L (73-393); Potassium 4.1 mmol/L (3.5-5.1); Sodium 141 mmol/L (136-145)
[2019-02-16 18:22] LABS: Albumin Globulin Ratio 1.2 (0.9-2); Alkaline Phosphatase 86 U/L (45-117); Bilirubin,Total 0.5 mg/dl (0.2-1); Globulin 3.5 gm/dl (2.5-4.0); Total Protein 7.7 gm/dl (6.4-8.2); Troponin I 0.098 ng/ml (0-0.045)
--- NOTE | 2019-02-16 19:05 | Ultrasound Report ---
ABDOMINAL ULTRASOUND, RIGHT UPPER QUADRANT HISTORY: RUQ/epigastric pain. COMPARISON: CT of the abdomen and pelvis September 15, 2014. FINDINGS: This exam is significantly compromised by suboptimal penetration. Hepatic echogenicity is i ncreased. No hepatic lesions are identified. There is no biliary ductal dilatation. The common bile d uct measures 4 mm in caliber. No gallstones are identified. There is no gallbladder wall thickening. Trace sludge within the gallbladder. The pancreatic body is normal. The head and tail are obscured. T here is no right hydronephrosis. IMPRESSION: 1. No gallstones or biliary ductal dilatation. Trace sludge within the gallbladder. 2. Fatty infiltration of the liver. 3. Study compromised by suboptimal penetration. Electronically signed by: Junior Villegas M.D. 02/16/2019 7:03 PM
[2019-02-16] MEDS ORDERED: IOVERSOL 100ml IV PRN (19:49)
--- NOTE | 2019-02-16 20:00 | CT Scan Report ---
CT OF THE ABDOMEN AND PELVIS WITH CONTRAST CLINICAL HISTORY: epigastric abdominal pain, nausea COMPARISON STUDY: CT of the abdomen and pelvis September 15, 2014. Abdominal ultrasound performed tamia jurado. TECHNIQUE: Following IV administration of 92 mL of Optiray-320, axial images of the abdomen and pelvi s were obtained from the lung bases to the proximal femurs. Images were reviewed in the axial, sagitt al, and coronal planes. IV contrast was administered without complication. Automated exposure contro l was utilized for the study. A dose lowering technique was utilized adhering to the principles of A CUCO. Oral contrast was administered. CT DOSE: 420.12 mGy.cm FINDINGS: Fatty infiltration of the liver is noted. The spleen, adrenal glands, kidneys and pancreas are normal. There is no biliary or pancreatic ductal dilatation. There is no evidence for a bowel obs truction. The appendix is normal. Caliber and wall thickness of small and large bowel are normal. An anastomosis within the distal colon is noted. No peripancreatic or pericholecystic infiltration is pr esent. There is no ascites or lymphadenopathy. There are no suspicious osseous lesions. Major vascula ture is patent. There is no hydronephrosis. IMPRESSION: 1. No acute process within the abdomen or pelvis. 2. Normal appendix. No bowel obstruction. 3. Fatty infiltration of the liver. Electronically signed by: Junior Villegas M.D. 02/16/2019 7:58 PM
[2019-02-16 20:22] LABS: Appearance Urine Cloudy (Clear); Bacteria Urine Automated Negative (Negative); Bilirubin Urine Negative (Negative); Blood Urine Trace (Negative); Color Urine Yellow; Epithelial Cell Urine Auto >30 /lpf (0-5); Glucose Urine UA Negative (Negative); Ketones Urine Negative (Negative); Leukocyte Esterase Urine 3+ (Negative); Nitrite Urine Negative (Negative); Protein Urine Negative (Negative); RBC Urine Automated 0-4 /hpf (0-4); Specific Gravity Urine 1.013 (1.000-1.030); Urobilinogen Urine Negative (Negative); WBC Urine Automated >30 /hpf (0-5); pH Urine 6.5 (4.5-7.5)
--- NOTE | 2019-02-16 21:29 | History & Physical Report ---
Date of Service February 16, 2019 Assessment & Plan (1) Diarrhea: 58-year-old female with a history of multiple sclerosis, diverticulitis, C. difficile colitis presents to the emergency room with abdominal pain and diarrhea. Abdominal CT was unremarkable for acute pathology. Patient is likely suffering from a viral gastroenteritis considering similar symptoms and recovery in her . The patient is being admitted for ACS rule out following a positive troponin. Elevated troponin, ACS rule out No EKG changes, no chest pain Likely demand ischemia in the setting of viral gastroenteritis/diarrhea Continue to trend troponin Viral gastroenteritis, diarrhea Continue IV fluidsTylenol for pain -History of Cdiff colitis, check stool toxin -Continue home Ranitidine and Protonix Depression/Anxiety - Continue Lorazepam, Wellbutrin, Sertraline, Abilify Asthma - Continue Montelukast, xopenex DVT ppx - Lovenox Code Status - Full (2) Dehydration: (3) Nausea: (4) Cardiac enzymes elevated: (5) MS (multiple sclerosis): (6) Abdominal pain: (7) Gastroenteritis: History of Present Illness Primary Care Provider: Izaiah Laughlin Jr, DO 58-year-old female with history of multiple sclerosis, diverticulitis, C. difficile presents with abdominal pain and watery diarrhea. The symptoms started earlier in the week and the patient has since been seen in the ED on 2 occasions. The patient was found to have an elevated troponin, although she had no EKG changes or symptoms indicating acute coronary syndrome. She endorses epigastric abdominal pain. She states that her has been sick with similar symptoms, but has recovered. She denies a history of hypertension, CAD, type 2 diabetes, hyperlipidemia. She does describe a family history positive for cardiac disease in her father. She denies history of smoking. Allergies Allergy/AdvReac Type Severity Reaction Status Date / Time azithromycin Allergy Severe Swelling Verified 02/17/19 12:10 of Lip/Tongue/Throat fish oil Allergy Severe tongue Verified 02/17/19 12:10 swells and trouble breathing mivacurium Allergy Severe TONGUE Verified 02/16/19 18:16 SWELLS ciprofloxacin Allergy Intermediate itchy Verified 02/17/19 12:10 clindamycin Allergy Intermediate HIVES Verified 02/16/19 18:16 meloxicam Allergy Intermediate rash Verified 02/17/19 12:10 metoclopramide Allergy Intermediate itchy Verified 02/17/19 12:10 morphine Allergy Intermediate LOCAL Verified 02/17/19 12:10 REACTION TO IV PUSH pregabalin Allergy Intermediate rash Verified 02/17/19 12:10 Quinolones Allergy Intermediate HIVES Verified 02/16/19 18:16 vancomycin Allergy Intermediate RASH Verified 02/17/19 12:10 cefaclor Allergy Mild RASH, HAS Verified 02/16/19 18:16 TOLERATED AUGMENTIN W/O RXN tetracycline Allergy Mild Unknown Verified 02/16/19 18:16 carbamazepine Allergy Unknown Unknown Verified 02/16/19 18:16 cevimeline Allergy Unknown anxious Verified 02/16/19 18:16 Cipro Allergy Unknown itchy Verified 09/29/16 13:02 doxycycline AdvReac Intermediate sores on Verified 02/17/19 12:10 tongue fexofenadine AdvReac Intermediate itchy Verified 02/17/19 12:10 influenza virus vaccine AdvReac Intermediate excerbation Verified 02/17/19 10:02 trivalent of multiple sclerosis phenytoin AdvReac Mild dizzy Verified 02/17/19 12:10 Home Medications Home Medications Medication Instructions Recorded Confirmed Type Restasis 1 drp OPB BID 04/21/18 02/16/19 History Vitamin D3 4,000 unit PO DAILY 04/21/18 02/16/19 History aripiprazole [Abilify] 2 mg PO QAM 04/21/18 02/16/19 History ascorbic acid (vitamin C) [Vitamin 1,000 mg PO DAILY 04/21/18 02/16/19 History C] atorvastatin 20 mg PO HS 04/21/18 02/16/19 History black cohosh 540 mg PO BID 04/21/18 02/16/19 History bupropion HCl 150 mg PO BID 04/21/18 02/16/19 History calcium carbonate [Calcium 600] 1,200 mg PO DAILY 04/21/18 02/16/19 History cetirizine [Zyrtec] 10 mg PO QAM 04/21/18 02/16/19 History gabapentin 600 mg PO TID 04/21/18 02/16/19 History montelukast [Singulair] 10 mg PO QAM 04/21/18 02/16/19 History multivitamin 1 tab PO DAILY 04/21/18 02/16/19 History ranitidine HCl 300 mg PO BID 04/21/18 02/16/19 History sertraline [Zoloft] 200 mg PO QAM 04/21/18 02/16/19 History melatonin 5 mg PO HS PRN 10/25/18 02/16/19 History Symbicort 2 puff INHALATION BID 11/23/18 02/16/19 History levalbuterol HFA 45 mcg/actuation 2 inh INHALATION BID PRN 01/30/19 02/16/19 History aerosol inhaler levothyroxine 75 mcg capsule 75 mcg PO QAM 01/30/19 02/16/19 History lorazepam 1 mg tablet 1 mg PO TID PRN tab 01/30/19 02/16/19 History omeprazole 40 mg PO QAM 02/16/19 02/16/19 History Past Med/Surg History Medical History Asthma (Chronic) HX OF CHRONIC BRONCHIAL ASTHMA. PT IS CURRENTLY FOLLOWING [facility]. AND HAD BRONCH OCTOBER 2018 Diverticulitis (Chronic) Pseudoseizure (Acute) R/T AN ACUTE MS ATTACK, STATES THAT WITH AN ATTACK HER EXTREMITIES "FLAIL". PT HAS HAD TESTING/NEURO WORK UP MS (multiple sclerosis) (Chronic) Diverticular disease GERD (gastroesophageal reflux disease) Hyperlipidemia Hypothyroidism Surgical History History of arthroscopy RT KNEE 2014 History of bowel resection History of bronchoscopy History of colonoscopy Family History Father Cancer Myocardial infarction Hypertension Mother Cancer Sister Cancer Hypertension Brother Cancer Hypertension Social History Preferred Language: [place] Communication Ability: Effective Lamp Shade Sewer Required: No Beliefs That Will Affect Care: None marital status: Current Living Situation: Spouse current occupational status: disabled Other Information That Helps Us Care for You: No Feels Safe at Home: Yes Safety Concerns: Feels Safe At This Time Smoking Status: Never smoker Cigarettes Per Day: 0 ; Second Hand Exposure: No ; Hx Alcohol Use: No Hx Substance Use: No Review of Systems Review of Systems: All systems reviewed & are unremarkable except as noted in HPI & below Physical Exam Constitutional: WD/WN, vitals as above Eyes: PERRL, conjunctivae normal, anicteric sclerae ENMT: external ear and nose normal, oropharynx normal Neck: trachea midline, no thyromegaly Respiratory: normal respiratory effort, lungs clear to auscultation Cardiovascular: RRR, no murmur, no edema Gastrointestinal (Abdomen): Inspection/Auscultation: abdomen normal to inspection and normal bowel sounds Percussion/Palpation: + abdomen tender (Epigastric) and abdomen soft; no guarding and abdomen not rigid Musculoskeletal: no cyanosis or clubbing, extremities motor strength 5/5 Skin: no rashes, warm and dry Neurologic: PERRL, EOMI, accommodation nl, no face palsy, no dysarthria Psychiatric: A+Ox3, euthymic affect Results & Data Vital Signs (Past 12 Hours) Vital Signs Temp Pulse Pulse Resp BP BP Pulse Ox 02/16/19 20:00 75 16 144/91 H 96 02/16/19 18:30 74 20 136/81 96 02/16/19 18:00 70 19 142/95 H 96 02/16/19 17:39 68 20 149/85 H 96 02/16/19 17:35 71 16 92 02/16/19 16:16 36.6 C 71 16 130/84 92 Code Status & VTE Plan Code Status Full code VTE Prophylaxis Plan VTE Prophylaxis will be ordered: Yes Supervising Physician Co-Signing Physician Notes Attending addendum: I have physically seen this patient, have supervised the medical residents activities, and agree with the H&P unless as otherwise noted. Assessment and Plan: Elevated troponin/ EKG shows NSR with normal intervals, normal QRS complexes, no ST elevation or depression, and no arrhythmias.- The patient will be admitted to telemetry for serial cardiac enzymes, serial EKG's, cardiac rhythm monitoring and a 2-D echocardiogram with Dopplers. Likely type II [place] supply demand mismatch. Diarrhea- History of C. difficile colitis, check stool for C. difficile. Differential includes viral. Symptoms are improving on their own. Continue IV fluid rehydration. Continue pantoprazole and ranitidine Multiple sclerosis- Continue usual medications. Fatigue- Does not appear to be a multiple sclerosis flare. She may require stress dose steroids. Remainder of orders and notations as noted. PG Care Time/CCT Total # of Minutes Spent Total Time Spent with Patient: Total time spent is greater than 50% in coordination of care (as documented) at patient's floor/unit and/or counseling patient: Resident Activity Tracking Resident Involvement: Resident Care Provided Care Provided: Adult Hospital Medicine (1) Diarrhea Diarrhea type: unspecified type Qualified Code(s): R19.7 - Diarrhea, unspecified
[2019-02-16] MEDS ORDERED: LEVALBUTEROL TARTRATE 15 GM HFA.AER.AD INH PRN (22:57)
[2019-02-16] MEDS: SODIUM CHLORIDE 0.9% 1000ML 1,000 ML IV SCH (23:13)
[2019-02-16] MEDS ORDERED: ACETAMINOPHEN 65 ML IV ONE (23:31)
[2019-02-16] MEDS: BuPROPion SR 150 MG TABCR PO SCH (23:49)
[2019-02-16] MEDS: GABAPENTIN 600 MG TAB PO SCH (23:49)
[2019-02-16] MEDS: ATORVASTATIN 20 MG TAB PO SCH (23:49)
[2019-02-16] MEDS: ACETAMINOPHEN 65 ML IV SCH (23:54)
[2019-02-16] MEDS: LORazepam 1 MG TAB PO PRN (23:57)
[2019-02-17] MEDS ORDERED: LORazepam 0.5 MG/1 ML VIAL IV STA (01:12)
[2019-02-17 01:49] LABS: Basophils # (auto) 0.02 K/uL (0-0.2); Basophils % (auto) 0.3 %; Eosinophils # (auto) 0.25 K/uL (0-0.5); Eosinophils % (auto) 3.2 %; Hemoglobin 14.7 g/dL (12.0-16.0); Immature Granulocytes # (auto) 0.02 K/uL (0.00-0.02); Immature Granulocytes % (auto) 0.3 %; Lymphocytes # (auto) 2.79 K/uL (1.2-3.4); Lymphocytes % (auto) 35.3 %; Mean Corpuscular Hemoglobin 31.4 pg (25-34); Mean Corpuscular Volume 89.7 fL (80-100); Mean Platelet Volume 9.5 fL (7.4-10.4); Monocytes # (auto) 0.51 K/uL (0.11-0.59); Monocytes % (auto) 6.4 %; Neutrophils # (auto) 4.32 K/uL (1.4-6.5); Neutrophils % (auto) 54.5 %; Platelet Count 203 K/uL (130-400); RDW Coefficient of Variation 12.4 % (11.5-14.5); RDW Standard Deviation 40.3 fL (36.4-46.3); Red Blood Count 4.68 M/uL (4.2-5.4); White Blood Count 7.91 K/uL (4.8-10.8)
[2019-02-17 02:09] LABS: Albumin Level 3.6 gm/dl (3.4-5.0); BUN Creatinine Ratio 13.5 (10-20); Calcium 8.6 mg/dl (8.5-10.1); Est GFR (African American) 71.2; Est GFR (Non-African American) 61.4; Potassium 3.7 mmol/L (3.5-5.1)
[2019-02-17 02:29] LABS: Albumin Globulin Ratio 1.3 (0.9-2); Bilirubin,Total 0.5 mg/dl (0.2-1); Globulin 2.8 gm/dl (2.5-4.0); Total Protein 6.4 gm/dl (6.4-8.2); Troponin I 0.102 ng/ml (0-0.045)
[2019-02-17] MEDS: LEVOTHYROXINE SODIUM 75 MCG TABLET PO SCH (06:15)
[2019-02-17] MEDS ORDERED: ACETAMINOPHEN 65 ML IV PRN (06:17)
[2019-02-17] MEDS: ACETAMINOPHEN 65 ML IV SCH (06:24)
[2019-02-17] MEDS: PANTOprazole 40 MG TAB PO SCH (08:17)
[2019-02-17] MEDS: CETIRIZINE HCL 10 MG TABLET PO SCH (08:17)
[2019-02-17] MEDS: SERTRALINE HCL 100 MG TABLET PO SCH (08:17)
[2019-02-17] MEDS: LORazepam 1 MG TAB PO PRN ×2 (08:17→21:14)
[2019-02-17] MEDS: BuPROPion SR 150 MG TABCR PO SCH ×2 (08:17→21:14)
[2019-02-17] MEDS: GABAPENTIN 600 MG TAB PO SCH ×3 (08:17→21:11)
[2019-02-17] MEDS: ARIPIprazole 1 MG/ML ORAL SOLN 150 ML BTL PO SCH (08:18)
[2019-02-17] MEDS: MONTELUKAST SODIUM 10 MG TABLET PO SCH (08:18)
[2019-02-17] MEDS: SODIUM CHLORIDE 0.9% 1000ML 1,000 ML IV SCH ×2 (08:22→17:39)
[2019-02-17 08:50] LABS: INR 1.1 (0.9-1.1); Prothrombin Time 10.9 Seconds (9.0-12.0)
[2019-02-17] MEDS: ENOXAPARIN INJ 40 MG/0.4 ML SYR SQ SCH (10:43)
--- NOTE | 2019-02-17 10:52 | Hospitalist Progress Note ---
Date of Service February 17, 2019 Assessment & Plan (1) Diarrhea: improving slowly, only once loose stool this morning no blood seen, mild abdominal pain no abnormality seen on CT, no colitis, no inflammation C diff sent, pending had similar symptoms but much shorter course, suspect viral etiology start on Imodium q6 PRN for diarrhea continue IV fluids Zofran PRN for nausea and encourage PO intake (2) Elevated troponin: never had chest pain, no EKG changes troponin 0.1 for three sets, no rise and fall likely just represents lab abnormality, would not even qualify this as demand ischemia will transfer off tele, no further work up (3) Dehydration: due to several days of diarrhea continue IV fluids (4) Nausea: Zofran PRN (5) MS (multiple sclerosis): stable, some minor pseudoseizures earlier this week (6) Abdominal pain: due to gastroenteritis (7) Gastroenteritis: Subjective patient feeling a little better, less diarrhea today, just once sent for C diff has some mild abdominal pain, some nausea and decreased appetite denies any episodes of chest pain/pressure yesterday and this morning reviewed labs, troponin minimally elevated at 0.1 for three sets, no rise and fall reviewed EKG personally, no ischemic changes seen discussed with patient, will transfer to medical floor try to improve PO intake and start on Imodium Review of Systems Review of Systems: All systems reviewed & are unremarkable except as noted in HPI & below Constitutional: + body aches, + fatigue and + weakness; no fever, no chills and no sweats Respiratory: no cough and no dyspnea Cardiovascular: no chest pain and no edema Gastrointestinal: + abdominal pain, + nausea and + diarrhea/loose stools; no vomiting, no constipation, no blood in stools and no melena Genitourinary: no dysuria Neurologic: + tremor(s) (pseudoseizures earlier this week, associated with MS) Physical Exam Constitutional: WD/WN, vitals as above Eyes: PERRL, conjunctivae normal, anicteric sclerae ENMT: external ear and nose normal, oropharynx normal Neck: trachea midline, no thyromegaly Respiratory: normal respiratory effort, lungs clear to auscultation Cardiovascular: RRR, no murmur, no edema Gastrointestinal (Abdomen): Inspection/Auscultation: + abdomen distended and normal bowel sounds Percussion/Palpation: + abdomen tender (mild, diffuse), abdomen soft and normal to percussion; no guarding and abdomen not rigid Musculoskeletal: no cyanosis or clubbing, extremities motor strength 5/5 Skin: no rashes, warm and dry Neurologic: patellar DTR's 2+ bilat, sensation intact and PERRL, EOMI, accommodation nl, no face palsy, no dysarthria Psychiatric: A+Ox3, euthymic affect Lymphatic: no cervical or axillary lymphadenopathy Results & Data Vital Signs (Past 12 Hours) Vital Signs Temp Pulse Pulse Resp BP Pulse Ox 02/17/19 07:21 36.6 C 77 19 115/75 94 02/17/19 03:44 36.5 C 79 16 111/74 96 02/16/19 23:33 69 02/16/19 22:57 36.4 C L 67 18 134/85 94 Laboratory Results Laboratory Results - last 24 hr 02/16/19 02/16/19 02/16/19 17:37 17:37 20:00 WBC 8.06 RBC 5.23 Hgb 16.8 H Hct 47.2 H MCV 90.2 MCH 32.1 MCHC 35.6 RDW Std Deviation 40.7 RDW Coeff of Rocio 12.4 Plt Count 238 MPV 9.9 Immature Gran % (Auto) 0.2 Neut % (Auto) 55.9 Lymph % (Auto) 32.6 [place] % (Auto) 8.1 Eos % (Auto) 2.7 Baso % (Auto) 0.5 Immature Gran # (Auto) 0.02 Neut # (Auto) 4.50 Lymph # (Auto) 2.63 [place] # (Auto) 0.65 H Eos # (Auto) 0.22 Baso # (Auto) 0.04 PT INR Sodium 141 Potassium 4.1 Chloride 106 Carbon Dioxide 27 Anion Gap 8.0 BUN 18 Creatinine 1.08 Est Cr Clr Drug Dosing Not Reportable Est GFR ( Amer) 66.5 Est GFR (Non-Af Amer) 57.3 BUN/Creatinine Ratio 16.4 Glucose 86 Calcium 9.2 Total Bilirubin 0.5 AST 38 H ALT 80 H Alkaline Phosphatase 86 Troponin I 0.098 H* Total Protein 7.7 Albumin 4.2 Globulin 3.5 Albumin/Globulin Ratio 1.2 Lipase 77 Urine Color Yellow Urine Appearance Cloudy A Urine pH 6.5 Ur Specific [place] 1.013 Urine Protein Negative Urine Glucose (UA) Negative Urine Ketones Negative Urine Blood Trace H Urine Nitrite Negative Urine Bilirubin Negative Urine Urobilinogen Negative Ur Leukocyte Esterase 3+ H Urine WBC (Auto) >30 H Urine RBC (Auto) 0-4 U Hyaline Cast (Auto) 1-5 U Epithel Cells (Auto) >30 H Urine Bacteria (Auto) Negative Stl C. diff Tox B Gene Hepatitis C Ab Screen 02/16/19 02/16/19 02/17/19 20:16 20:16 01:37 WBC RBC Hgb Hct MCV MCH MCHC RDW Std Deviation RDW Coeff of Rocio Plt Count MPV Immature Gran % (Auto) Neut % (Auto) Lymph % (Auto) [place] % (Auto) Eos % (Auto) Baso % (Auto) Immature Gran # (Auto) Neut # (Auto) Lymph # (Auto) [place] # (Auto) Eos # (Auto) Baso # (Auto) PT INR Sodium 142 Potassium 3.7 Chloride 109 H Carbon Dioxide 26 Anion Gap 7.0 BUN 14 Creatinine 1.02 Est Cr Clr Drug Dosing 57.0 Est GFR ( Amer) 71.2 Est GFR (Non-Af Amer) 61.4 BUN/Creatinine Ratio 13.5 Glucose 90 Calcium 8.6 Total Bilirubin 0.5 AST 32 ALT 65 Alkaline Phosphatase 70 Troponin I 0.104 H* 0.102 H* Total Protein 6.4 Albumin 3.6 Globulin 2.8 Albumin/Globulin Ratio 1.3 Lipase Urine Color Urine Appearance Urine pH Ur Specific [place] Urine Protein Urine Glucose (UA) Urine Ketones Urine Blood Urine Nitrite Urine Bilirubin Urine Urobilinogen Ur Leukocyte Esterase Urine WBC (Auto) Urine RBC (Auto) U Hyaline Cast (Auto) U Epithel Cells (Auto) Urine Bacteria (Auto) Stl C. diff Tox B Gene Hepatitis C Ab Screen Neg 02/17/19 02/17/19 02/17/19 01:37 08:22 08:22 WBC 7.91 RBC 4.68 Hgb 14.7 Hct 42.0 MCV 89.7 MCH 31.4 MCHC 35.0 RDW Std Deviation 40.3 RDW Coeff of Rocio 12.4 Plt Count 203 MPV 9.5 Immature Gran % (Auto) 0.3 Neut % (Auto) 54.5 Lymph % (Auto) 35.3 [place] % (Auto) 6.4 Eos % (Auto) 3.2 Baso % (Auto) 0.3 Immature Gran # (Auto) 0.02 Neut # (Auto) 4.32 Lymph # (Auto) 2.79 [place] # (Auto) 0.51 Eos # (Auto) 0.25 Baso # (Auto) 0.02 PT 10.9 INR 1.1 Sodium Potassium Chloride Carbon Dioxide Anion Gap BUN Creatinine Est Cr Clr Drug Dosing Est GFR ( Amer) Est GFR (Non-Af Amer) BUN/Creatinine Ratio Glucose Calcium Total Bilirubin AST ALT Alkaline Phosphatase Troponin I 0.114 H* Total Protein Albumin Globulin Albumin/Globulin Ratio Lipase Urine Color Urine Appearance Urine pH Ur Specific [place] Urine Protein Urine Glucose (UA) Urine Ketones Urine Blood Urine Nitrite Urine Bilirubin Urine Urobilinogen Ur Leukocyte Esterase Urine WBC (Auto) Urine RBC (Auto) U Hyaline Cast (Auto) U Epithel Cells (Auto) Urine Bacteria (Auto) Stl C. diff Tox B Gene Hepatitis C Ab Screen 02/17/19 09:10 WBC RBC Hgb Hct MCV MCH MCHC RDW Std Deviation RDW Coeff of Rocio Plt Count MPV Immature Gran % (Auto) Neut % (Auto) Lymph % (Auto) [place] % (Auto) Eos % (Auto) Baso % (Auto) Immature Gran # (Auto) Neut # (Auto) Lymph # (Auto) [place] # (Auto) Eos # (Auto) Baso # (Auto) PT INR Sodium Potassium Chloride Carbon Dioxide Anion Gap BUN Creatinine Est Cr Clr Drug Dosing Est GFR ( Amer) Est GFR (Non-Af Amer) BUN/Creatinine Ratio Glucose Calcium Total Bilirubin AST ALT Alkaline Phosphatase Troponin I Total Protein Albumin Globulin Albumin/Globulin Ratio Lipase Urine Color Urine Appearance Urine pH Ur Specific [place] Urine Protein Urine Glucose (UA) Urine Ketones Urine Blood Urine Nitrite Urine Bilirubin Urine Urobilinogen Ur Leukocyte Esterase Urine WBC (Auto) Urine RBC (Auto) U Hyaline Cast (Auto) U Epithel Cells (Auto) Urine Bacteria (Auto) Stl C. diff Tox B Gene Pending Hepatitis C Ab Screen Medications Administered Current Inpatient Medications Aripiprazole (Abilify) 2 mg PO QA REHAN Stop: 03/19/19 08:59 Last Admin: 02/17/19 08:18 Dose: 2 mg Documented by: Atorvastatin Calcium (Lipitor) 20 mg PO REHAN Stop: 03/18/19 22:56 Last Admin: 02/16/19 23:49 Dose: 20 mg Documented by: Bupropion HCl (Wellbutrin-Sr) 150 mg PO BID [facility] Stop: 03/18/19 22:56 Last Admin: 02/17/19 08:17 Dose: 150 mg Documented by: Cetirizine HCl (Zyrtec) 10 mg PO QAM [facility] Stop: 03/19/19 08:59 Last Admin: 02/17/19 08:17 Dose: 10 mg Documented by: Enoxaparin Sodium (Lovenox) 40 mg SQ Q24H REHAN Stop: 03/19/19 10:29 Last Admin: 02/17/19 10:43 Dose: 40 mg Documented by: Gabapentin (Neurontin) 600 mg PO TID [facility] Stop: 03/18/19 22:56 Last Admin: 02/17/19 08:17 Dose: 600 mg Documented by: Sodium Chloride (Nss 1000ml) 1,000 mls @ 110 mls/hr IV .Q9H6M [facility] Stop: 03/18/19 22:56 Last Admin: 02/17/19 08:22 Dose: 110 mls/hr Documented by: Acetaminophen (Ofirmev) 65 mls @ 200 mls/hr IV Q6H PRN PRN Reason: Pain or Fever Stop: 03/19/19 06:16 Ioversol (Optiray 320 100ml) 92 ml IV ONCE PRN PRN Reason: Interaction Checking Stop: 02/20/19 19:48 Last Admin: 02/16/19 19:49 Dose: 92 ml Documented by: Levalbuterol HCl (Xopenex Hfa) 2 puffs INH BID PRN PRN Reason: Shortness Of Breath Or Wheezing Stop: 03/18/19 22:56 Levothyroxine Sodium (Synthroid) 75 mcg PO DAILYBB [facility] Stop: 03/19/19 06:29 Last Admin: 02/17/19 06:15 Dose: 75 mcg Documented by: Lorazepam (Ativan) 1 mg PO TID PRN PRN Reason: Anxiety Stop: 03/18/19 22:56 Last Admin: 02/17/19 08:17 Dose: 1 mg Documented by: Montelukast Sodium (Singulair) 10 mg PO QAM [facility] Stop: 03/19/19 08:59 Last Admin: 02/17/19 08:18 Dose: 10 mg Documented by: Pantoprazole Sodium (Protonix) 40 mg PO QAM [facility] Stop: 03/19/19 08:59 Last Admin: 02/17/19 08:17 Dose: 40 mg Documented by: Ranitidine HCl (Zantac) 300 mg PO BID [facility] Stop: 03/18/19 22:56 Last Admin: 02/17/19 08:18 Dose: 300 mg Documented by: Sertraline HCl (Zoloft) 200 mg PO QAM [facility] Stop: 03/19/19 08:59 Last Admin: 02/17/19 08:17 Dose: 200 mg Documented by: PG Care Time/CCT Total # of Minutes Spent Total Time Spent with Patient: Total time spent is greater than 50% in coordination of care (as documented) at patient's floor/unit and/or counseling patient: (1) Diarrhea Diarrhea type: unspecified type Qualified Code(s): R19.7 - Diarrhea, unspecified
[2019-02-17] MEDS ORDERED: LOPERAMIDE HCL 2 MG CAP PO PRN (12:06)
[2019-02-17 12:18] LABS: Cdiff Antigen Negative; Cdiff Toxin A+B Negative Cdiff Toxin (Negative)
[2019-02-17] MEDS: ATORVASTATIN 20 MG TAB PO SCH (21:11)
[2019-02-18] MEDS: SODIUM CHLORIDE 0.9% 1000ML 1,000 ML IV SCH (03:15)
[2019-02-18] MEDS: LEVOTHYROXINE SODIUM 75 MCG TABLET PO SCH (05:38)
[2019-02-18 06:35] LABS: Basophils # (auto) 0.02 K/uL (0-0.2); Basophils % (auto) 0.3 %; Eosinophils # (auto) 0.28 K/uL (0-0.5); Eosinophils % (auto) 4.6 %; Hematocrit (blood only) 39.3 % (37-47); Hemoglobin 13.5 g/dL (12.0-16.0); Immature Granulocytes # (auto) 0.01 K/uL (0.00-0.02); Immature Granulocytes % (auto) 0.2 %; Lymphocytes % (auto) 39.7 %; Mean Corpuscular Hemoglobin 31.3 pg (25-34); Mean Corpuscular Hgb Conc 34.4 g/dL (32-36); Mean Corpuscular Volume 91.2 fL (80-100); Mean Platelet Volume 9.8 fL (7.4-10.4); Monocytes # (auto) 0.51 K/uL (0.11-0.59); Monocytes % (auto) 8.4 %; Neutrophils # (auto) 2.83 K/uL (1.4-6.5); Neutrophils % (auto) 46.8 %; Platelet Count 180 K/uL (130-400); RDW Coefficient of Variation 12.4 % (11.5-14.5); RDW Standard Deviation 41.8 fL (36.4-46.3); Red Blood Count 4.31 M/uL (4.2-5.4); White Blood Count 6.05 K/uL (4.8-10.8)
[2019-02-18 07:09] LABS: Calcium 8.3 mg/dl (8.5-10.1); Creatinine Clr Calc Pharmacy 55.4 ml/min; Est GFR (African American) 68.8; Est GFR (Non-African American) 59.3
[2019-02-18] MEDS: GABAPENTIN 600 MG TAB PO SCH (08:19)
[2019-02-18] MEDS: ARIPIprazole 1 MG/ML ORAL SOLN 150 ML BTL PO SCH (08:19)
[2019-02-18] MEDS: MONTELUKAST SODIUM 10 MG TABLET PO SCH (08:20)
[2019-02-18] MEDS: PANTOprazole 40 MG TAB PO SCH (08:20)
[2019-02-18] MEDS: BuPROPion SR 150 MG TABCR PO SCH (08:22)
[2019-02-18] MEDS: SERTRALINE HCL 100 MG TABLET PO SCH (08:23)
[2019-02-18] MEDS: CETIRIZINE HCL 10 MG TABLET PO SCH (08:23)
[2019-02-18] MEDS: ENOXAPARIN INJ 40 MG/0.4 ML SYR SQ SCH (10:32)
--- NOTE | 2019-02-18 15:18 | Discharge Summary ---
Date of Service February 18, 2019 Admission HPI Per Admitting Provider 58-year-old female with history of multiple sclerosis, diverticulitis, C. difficile presents with abdominal pain and watery diarrhea. The symptoms started earlier in the week and the patient has since been seen in the ED on 2 occasions. The patient was found to have an elevated troponin, although she had no EKG changes or symptoms indicating acute coronary syndrome. She endorses epigastric abdominal pain. She states that her has been sick with similar symptoms, but has recovered. She denies a history of hypertension, CAD, type 2 diabetes, hyperlipidemia. She does describe a family history positive for cardiac disease in her father. She denies history of smoking. Principal Diagnosis Gastroenteritis, dehydration Discharge Exam Constitutional WD/WN, vitals as above Eyes PERRL, conjunctivae normal, anicteric sclerae ENMT external ear and nose normal, oropharynx normal Neck trachea midline, no thyromegaly Respiratory normal respiratory effort, lungs clear to auscultation Cardiovascular RRR, no murmur, no edema Gastrointestinal (Abdomen) Inspection/Auscultation: + abdomen distended and normal bowel sounds Percussion/Palpation: + abdomen tender (mild, diffuse), abdomen soft and normal to percussion; no guarding and abdomen not rigid Musculoskeletal no cyanosis or clubbing, extremities motor strength 5/5 Skin no rashes, warm and dry Neurologic patellar DTR's 2+ bilat, sensation intact and PERRL, EOMI, accommodation nl, no face palsy, no dysarthria Psychiatric A+Ox3, euthymic affect Lymphatic no cervical or axillary lymphadenopathy Discharge Data Allergies Allergy/AdvReac Type Severity Reaction Status Date / Time azithromycin Allergy Severe Swelling Verified 02/17/19 12:10 of Lip/Tongue/Throat fish oil Allergy Severe tongue Verified 02/17/19 12:10 swells and trouble breathing mivacurium Allergy Severe TONGUE Verified 02/16/19 18:16 SWELLS ciprofloxacin Allergy Intermediate itchy Verified 02/17/19 12:10 clindamycin Allergy Intermediate HIVES Verified 02/16/19 18:16 meloxicam Allergy Intermediate rash Verified 02/17/19 12:10 metoclopramide Allergy Intermediate itchy Verified 02/17/19 12:10 morphine Allergy Intermediate LOCAL Verified 02/17/19 12:10 REACTION TO IV PUSH pregabalin Allergy Intermediate rash Verified 02/17/19 12:10 Quinolones Allergy Intermediate HIVES Verified 02/16/19 18:16 vancomycin Allergy Intermediate RASH Verified 02/17/19 12:10 cefaclor Allergy Mild RASH, HAS Verified 02/16/19 18:16 TOLERATED AUGMENTIN W/O RXN tetracycline Allergy Mild Unknown Verified 02/16/19 18:16 carbamazepine Allergy Unknown Unknown Verified 02/16/19 18:16 cevimeline Allergy Unknown anxious Verified 02/16/19 18:16 Cipro Allergy Unknown itchy Verified 09/29/16 13:02 doxycycline AdvReac Intermediate sores on Verified 02/17/19 12:10 tongue fexofenadine AdvReac Intermediate itchy Verified 02/17/19 12:10 influenza virus vaccine AdvReac Intermediate excerbation Verified 02/17/19 10:02 trivalent of multiple sclerosis phenytoin AdvReac Mild dizzy Verified 02/17/19 12:10 Consultations 02/16/19 20:05 ED Decision to Admit Stat Ordered Studies 02/16/19 17:02 CT abd pelvis oral and IV con Stat US abdomen limited Stat Hospital Course (1) Diarrhea: improving slowly, only two stools in 24 hours prior to discharge no blood seen, mild abdominal pain no abnormality seen on CT, no colitis, no inflammation C diff gene is positive but toxin negative had similar symptoms but much shorter course, suspect viral etiology responded well to Imodium q6 PRN for diarrhea d/c to home (2) Dehydration: due to several days of diarrhea treated with aggressive IV fluids now fully hydrated (3) Nausea: Zofran PRN (4) Cardiac enzymes elevated: never had chest pain, no EKG changes troponin 0.1 for three sets, no rise and fall likely just represents lab abnormality, would not even qualify this as demand ischemia (5) MS (multiple sclerosis): stable, some minor pseudoseizures earlier this week (6) Abdominal pain: due to gastroenteritis (7) Gastroenteritis: Total Time Total Time Spent Total Time Spent (In Minutes): 31 minutes Total Time Includes: Examination of the Patient, Discharge Planning and Medication Reconciliation Discharge Plan Discharge Items Patient Disposition: Home - Self-Care Reason For Visit: ELEVATED TROP Discharge Diagnosis: Viral gastroenteritis Condition: Good Discharge Goals: Improve disease control and Improve function Activity: Resume your previous activity Non-emergency contact: Primary Care Provider Call non-emergency contact if: you have any medication questions, your symptoms worsen and you have a fever Follow-up/Referrals: Izaiah Laughlin Jr, DO [Primary Care Provider] - Diet: Regular Addtl Provider Instructions: Medications: no changes to chronic medications - IMODIUM: can use as needed for diarrhea if symptoms return, you can obtain this over the counter Acute diarrhea, dehydration resolving diarrhea, the CT of the abdomen/pelvis showed no infection, no inflammation testing for C diff was negative for the toxin so this was NOT a C diff infection stay well hydrated, you were given IV fluids while here follow up with Dr. Laughlin in 7-10 days Elevated troponin: minimally elevated, no rise and fall, was just consistently 0.1 for three sets you did not have any chest pain and 2 separate EKG were completely normal this was just a lab abnormality, does not represent an acute heart event Prescriptions: Continued levothyroxine 75 mcg capsule 75 mcg PO QAM RF: 0 multivitamin Tablet 1 tab PO DAILY RF: 0 bupropion HCl 150 mg tablet sustained-release 12 hr 150 mg PO BID RF: 0 ascorbic acid (vitamin C) [Vitamin C] 1,000 mg Tablet 1,000 mg PO DAILY RF: 0 gabapentin 600 mg Tablet 600 mg PO TID RF: 0 atorvastatin 20 mg Tablet 20 mg PO HS RF: 0 cetirizine [Zyrtec] 10 mg Tablet 10 mg PO QAM RF: 0 ranitidine HCl 300 mg Tablet 300 mg PO BID RF: 0 sertraline [Zoloft] 100 mg Tablet 200 mg PO QAM RF: 0 black cohosh 540 mg Capsule 540 mg PO BID RF: 0 calcium carbonate [Calcium 600] 600 mg calcium (1,500 mg) Tablet 1,200 mg PO DAILY RF: 0 montelukast [Singulair] 10 mg Tablet 10 mg PO QAM RF: 0 Restasis 0.05 % Dropperette 1 drp OPB BID RF: 0 aripiprazole [Abilify] 2 mg Tablet 2 mg PO QAM RF: 0 Vitamin D3 4,000 unit Capsule 4,000 unit PO DAILY RF: 0 lorazepam 1 mg tablet 1 mg PO TID PRN (Reason: Anxiety) RF: 0 melatonin 5 mg Tablet 5 mg PO HS PRN (Reason: Sleep) RF: 0 Symbicort 80-4.5 mcg/actuation Hfa Aerosol Inhaler 2 puff INHALATION BID RF: 0 levalbuterol tartrate [Xopenex HFA] 45 mcg/actuation HFA aerosol inhaler 2 inh INHALATION BID PRN (Reason: Shortness Of Breath Or Wheezing) RF: 0 omeprazole 40 mg capsule,delayed release(DR/EC) 40 mg PO QAM RF: 0 Stand-Alone Forms: [facility], [facility] Discharge Orders: Discharge Order (Routine); Ordered 02/18/19 Ordered By: Keegan Murrell Admission Data Admit Date/Time: 02/16/19 21:28 Attending Provider: Keegan Murrell Admit Provider: Randolph Hart Primary Care Provider: Izaiah Laughlin Jr Other Providers: Zia Raman Service: Medical Other Interventions: Discharge Summary Assessment (RN) Last Done: 02/18/19 12:46 DC Date/Time DO NOT enter until pt leaves facility: 02/18/19 13:15
== END 2019-02-18 13:15 | disposition home or self-care (01) ==
LOC: ED 15:47 → 2S 15:47 → SUATTDRO 21:28 → 2S 22:34 → 4W 02-17 12:24

== ENCOUNTER 2020-05-24 00:51 | Inpatient (IN) ==
[2020-05-24] MEDS ORDERED: SODIUM CHLORIDE 0.9% 1000ML 1,000 ML IV ONE (01:49)
[2020-05-24] MEDS ORDERED: ONDANSETRON INJ 2 MG/ML 2 ML VIAL IV STA ×2 (01:49→04:16)
[2020-05-24] MEDS ORDERED: HYDROmorphone INJ 0.5 MG/0.5 ML SYR IV STA ×2 (01:49→03:45)
[2020-05-24 02:22] LABS: Basophils # (auto) 0.02 K/uL (0-0.2); Basophils % (auto) 0.3 %; Eosinophils # (auto) 0.06 K/uL (0-0.5); Hemoglobin 16.7 g/dL (12.0-16.0); Immature Granulocytes # (auto) 0.02 K/uL (0.00-0.02); Immature Granulocytes % (auto) 0.3 %; Lymphocytes # (auto) 1.92 K/uL (1.2-3.4); Lymphocytes % (auto) 31.2 %; Mean Corpuscular Hemoglobin 31.2 pg (25-34); Mean Corpuscular Hgb Conc 34.8 g/dL (32-36); Mean Corpuscular Volume 89.7 fL (80-100); Mean Platelet Volume 9.5 fL (7.4-10.4); Monocytes # (auto) 0.57 K/uL (0.11-0.59); Monocytes % (auto) 9.3 %; Neutrophils # (auto) 3.56 K/uL (1.4-6.5); Neutrophils % (auto) 57.9 %; Platelet Count 193 K/uL (130-400); RDW Coefficient of Variation 12.6 % (11.5-14.5); Red Blood Count 5.35 M/uL (4.2-5.4); White Blood Count 6.15 K/uL (4.8-10.8)
[2020-05-24 02:41] LABS: Albumin Level 3.9 gm/dl (3.4-5.0); BUN Creatinine Ratio 15.5 (10-20); Calcium 9.4 mg/dl (8.5-10.1); Creatinine Clr Calc Pharmacy 65.4 ml/min; Est GFR (African American) 88.8; Est GFR (Non-African American) 76.6; Potassium 3.6 mmol/L (3.5-5.1)
[2020-05-24 02:44] LABS: Bilirubin,Total 0.5 mg/dl (0.2-1); Globulin 4.1 gm/dl (2.5-4.0)
[2020-05-24] MEDS ORDERED: IOVERSOL 100ml IV ONE (03:53)
[2020-05-24] MEDS: SODIUM CHLORIDE 0.9% 500 ML IV SCH ×3 (04:25→15:07)
--- NOTE | 2020-05-24 04:37 | Emergency Department Note ---
Impression & Plan Acute epigastric pain, COVID-19 ED Provider Note NAME: GREGORY LOPEZ AGE: 60 SEX: F ARRIVES VIA: Walk-In INFORMANT: Patient ED PROVIDER(S): Eva Whitaker DO CHIEF COMPLAINT: Right upper quadrant abdominal pain PLAN: Disposition: Admitted to the [facility] Hospitalist service Condition: Fair MEDICAL DECISION MAKING: This is a 60-year-old female patient who presents to the emergency department increasing epigastric abdominal pain over the past 2-3 days. Ingestion of food seems to make her symptoms worse. Laboratory studies were unremarkable. Right upper quadrant ultrasound and CT scan of the abdomen/pelvis were essentially negative. Despite receiving IV analgesia here in the ER, the patient has persistent pain. I discussed the case with the [facility] Hospitalist and they will evaluate for further management. We discussed the possibility of a gastric ulcer as the patient seemed to significantly worsen with any type of oral intake. Triage Nursing notes reviewed and agree them. Prior medical records reviewed specifically from her recent ER visit. Vital Signs: reviewed and unremarkable Differential diagnosis: Cholecystitis, cholangitis, pancreatitis, gastric ulcer, ischemic bowel, diverticulitis, colitis, small bowel obstruction ER treatment provided: IV Zofran x2, IV Dilaudid x2, IV normal saline Diagnostics interpreted by me: Cardiac Monitoring: Normal sinus rhythm at a rate of 72 Laboratory studies: See below Imaging studies: As per stat rad Ultrasound gallbladder: Diffuse fatty liver. Slightly enlarged liver at 18 cm. Negative for gallstones, pericholecystic fluid or gallbladder wall thickening. Normal common bile duct at 3 mm. Normal right kidney at 10.[address] abdomen pelvis: Mild basilar atelectasis or scarring. Fatty liver. No calcified Gallstones. No dilated bowel. Unremarkable appendix. Left hemicolectomy with distal colon anastomosis as before. Mild colonic diverticulosis. No CT evidence of diverticulitis. No acute intra-abdominal process HPI: 60/F arrives for evaluation of right upper quadrant abdominal pain. The patient presents to the emergency department with increasing epigastric and right upper quadrant abdominal pain that started on Tuesday night after being discharged from the hospital. The patient noted that any type of food ingestion seem to make the pain significantly worse. Patient has a history of diverticulitis with previous hemicolectomy but notes that her pain seems to be too high in her abdomen to be diverticulitis. The patient has associated nausea and chills and a low-grade temperature. The patient does describe some loose bowels and worsening symptoms when trying to eat crackers. ROS: See above HPI for pertinent positives & negatives. A total of 10 systems reviewed and were otherwise negative. PAST MEDICAL HISTORY:See Below PAST SURGICAL HISTORY:See Below FAMILY HISTORY:See Below SOCIAL HISTORY:See Below HOME MEDICATIONS:See list ALLERGIES:See list VITALS:See Below PHYSICAL EXAMINATION: HEENT: Head - normocephalic and atraumatic Pupils are equal, round, and reactive to light. Extraocular eye muscles are intact, and sclera are anicteric. Nose - moist nasal mucosa without discharge. Mouth - moist buccal mucosa. Oropharynx is nonerythematous and there is no tonsillar exudate or edema noted. Neck: Supple; no JVD, nuchal rigidity, cervical lymphadenopathy, or auscultated bruits. Heart: Regular rate and rhythm. There is a normal S1 and S2 with no murmurs, cl icks, or gallops appreciated. Lungs: Clear to auscultation bilaterally with no wheezes, rales, or rhonchi. Abdomen: Soft, exquisite tenderness to palpation in the epigastrium and right upper quadrant. There are no palpable pulsatile masses or hepatosplenomegaly. There is no guarding, rigidity, or rebound noted. Extremities: No evidence of cyanosis, clubbing, or edema. There are easily palpable peripheral pulses. Skin: warm and dry with good turgor and no rashes. ED COURSE: Times/Reassessments: 0125: The patient was evaluated in room C9. A complete history and physical was performed. Previous electronic medical records were reviewed. I donned complete PPE as the patient is known Covid positive. An IV lock was initiated and labs were drawn as above. An order was placed for continuous cardiac monitoring. Patient was in a normal sinus rhythm at a rate of 72. Patient was given IV Dilaudid and IV Zofran for pain. The patient will go for ultrasound of the right upper quadrant 0305: Patient was reevaluated at this time and I reviewed the results of the ultrasound with her. She requested additional pain medication and will now go for CT scan as she is still quite uncomfortable. She was given an additional dose of IV Dilaudid. The patient is now complaining of more nausea and was given an additional dose of IV Zofran. I reviewed the results of the CT scan with the patient and explained that no particular cause of the epigastric pain could be identified but that we would keep her here in the hospital n.p.o. on IV fluids. I discussed the case with the [facility] hospitalist and they will evaluate for further management. Eva Whitaker DO Past Med/Surg History Medical History (Updated 05/24/20 @ 07:07 by Eva Whitaker DO) Anxiety Asthma HX OF CHRONIC BRONCHIAL ASTHMA. PT IS CURRENTLY FOLLOWING [facility]. AND HAD BRONCH OCTOBER 2018 Diverticular disease Diverticulitis GERD (gastroesophageal reflux disease) Hyperlipidemia Hypothyroidism MS (multiple sclerosis) Pseudoseizure R/T AN ACUTE MS ATTACK, STATES THAT WITH AN ATTACK HER EXTREMITIES "FLAIL". PT HAS HAD TESTING/NEURO WORK UP Surgical History History of arthroscopy RT KNEE 2015 History of bowel resection History of bronchoscopy History of colonoscopy Family History Father Cancer Myocardial infarction Hypertension Mother Cancer Sister Cancer Hypertension Brother Cancer Hypertension Social History Smoking Status: Never smoker Cigarettes Per Day: 0; Second Hand Exposure: No; Hx Alcohol Use: No Hx Substance Use: No Preferred Language: Uzbek Communication Ability: Effective Corsage Maker Required: No Beliefs That Will Affect Care: None marital status: Current Living Situation: Spouse current occupational status: disabled Feels Safe at Home: Yes Assistive Devices: None Allergies Allergies Allergy/AdvReac Type Severity Reaction Status Date / Time azithromycin Allergy Severe Swelling Verified 05/24/20 02:45 of Lip/Tongue/Throat fish oil Allergy Severe tongue Verified 05/24/20 02:45 swells and trouble breathing ciprofloxacin Allergy Intermediate itchy Verified 05/24/20 02:45 clindamycin Allergy Intermediate HIVES Verified 05/24/20 02:45 meloxicam Allergy Intermediate rash Verified 05/24/20 02:45 metoclopramide Allergy Intermediate itchy Verified 05/24/20 02:45 morphine Allergy Intermediate LOCAL Verified 05/24/20 02:45 REACTION TO IV PUSH pregabalin Allergy Intermediate rash Verified 05/24/20 02:45 Quinolones Allergy Intermediate HIVES Verified 05/24/20 02:45 vancomycin Allergy Intermediate RASH Verified 05/24/20 02:45 cefaclor Allergy Mild RASH, HAS Verified 05/24/20 02:45 TOLERATED AUGMENTIN W/O RXN tetracycline Allergy Mild Unknown Verified 05/24/20 02:45 carbamazepine Allergy Unknown Unknown Verified 05/24/20 02:45 cevimeline Allergy Unknown anxious Verified 05/24/20 02:45 doxycycline AdvReac Intermediate sores on Verified 05/24/20 02:45 tongue fexofenadine AdvReac Intermediate itchy Verified 05/24/20 02:45 influenza virus vaccine AdvReac Intermediate excerbation Verified 05/24/20 02:45 trivalent of multiple sclerosis phenytoin AdvReac Mild dizzy Verified 05/24/20 02:45 Home Meds Home Medications Medication Instructions Recorded Confirmed Vitamin D3 4,000 unit PO DAILY 04/21/18 05/24/20 aripiprazole [Abilify] 2 mg PO QAM 04/21/18 05/24/20 ascorbic acid (vitamin C) [Vitamin 1,000 mg PO DAILY 04/21/18 05/24/20 C] atorvastatin 20 mg PO HS 04/21/18 05/24/20 bupropion HCl 150 mg PO BID 04/21/18 05/24/20 calcium carbonate [Calcium 600] 1,200 mg PO DAILY 04/21/18 05/24/20 cetirizine [Zyrtec] 10 mg PO QAM 04/21/18 05/24/20 montelukast [Singulair] 10 mg PO QAM 04/21/18 05/24/20 multivitamin 1 tab PO DAILY 04/21/18 05/24/20 sertraline [Zoloft] 200 mg PO QAM 04/21/18 05/24/20 melatonin 5 mg PO HS PRN 10/25/18 05/24/20 levothyroxine 75 mcg capsule 75 mcg PO QAM 01/30/19 05/24/20 lorazepam 1 mg tablet 1 mg PO TID PRN tab 01/30/19 05/24/20 omeprazole 40 mg PO QAM 02/16/19 05/24/20 gabapentin 600 mg tablet 600 mg PO TID tab 08/09/19 05/24/20 hydrocodone-homatropine 5 ml PO Q4 PRN 05/21/20 05/24/20 Previous Rx's Medication Instructions Recorded Oxygen Home #1 ea 12/03/19 CPAP Machine #1 ea 01/25/20 budesonide-formoterol HFA 80 2 puff INHALATION BID #3 inhaler 03/05/20 mcg-4.5 mcg/actuation aerosol inhaler meclizine 25 mg tablet 25 mg PO BID PRN #30 tab 03/25/20 Oxygen Home #1 ea 04/23/20 levalbuterol tartrate 45 2 inh INHALATION BID PRN #3 inhaler 04/23/20 mcg/actuation aerosol inhaler Results & Data (ED) Vital Signs Vital Signs - 24 hr 05/24/20 01:07 05/24/20 02:14 05/24/20 02:19 Temperature 36.9 C Temperature Source Temporal Artery Scan Pulse Rate 88 Pulse Rate [Apical] 72 Respiratory Rate 20 20 Respiratory Depth Normal Blood Pressure 158/97 H Blood Pressure [Right Arm] 143/95 H Blood Pressure Mean 117 Blood Pressure Mean [Right Arm] 111 Blood Pressure Position [Right Arm] Semi-fowlers Pulse Oximetry 94 93 93 Oxygen Delivery Method Room Air Room Air Room Air Sepsis Recent Fever Within 48 Hours Yes Sepsis New/Unexplained Change in Mental Status N/A Sepsis Action Taken by Nursing No Action Required 05/24/20 03:19 05/24/20 04:54 05/24/20 06:36 Temperature Temperature Source Pulse Rate Pulse Rate [Apical] 64 64 72 Respiratory Rate 16 14 13 Respiratory Depth Normal Normal Normal Blood Pressure Blood Pressure [Right Arm] 158/86 H 164/90 H 123/76 Blood Pressure Mean Blood Pressure Mean [Right Arm] 110 114 91 Blood Pressure Position [Right Arm] Pulse Oximetry 93 94 93 Oxygen Delivery Method Room Air Room Air Room Air Sepsis Recent Fever Within 48 Hours Sepsis New/Unexplained Change in Mental Status Sepsis Action Taken by Nursing Laboratory Data Result diagrams: 05/24/20 02:12 05/24/20 02:12 Lab Results 05/24/20 05/24/20 05/24/20 Range/Units 02:12 02:12 04:16 WBC 6.15 (4.8-10.8) K/uL RBC 5.35 (4.2-5.4) M/uL Hgb 16.7 H (12.0-16.0) g/dL Hct 48.0 H (37-47) % MCV 89.7 (80-100) fL MCH 31.2 (25-34) pg MCHC 34.8 (32-36) g/dL RDW Std Deviation 41.0 (36.4-46.3) fL RDW Coeff of Rocio 12.6 (11.5-14.5) % Plt Count 193 (130-400) K/uL MPV 9.5 (7.4-10.4) fL Immature Gran % (Auto) 0.3 % Neut % (Auto) 57.9 % Lymph % (Auto) 31.2 % [place] % (Auto) 9.3 % Eos % (Auto) 1.0 % Baso % (Auto) 0.3 % Neut # (Auto) 3.56 (1.4-6.5) K/uL Lymph # (Auto) 1.92 (1.2-3.4) K/uL [place] # (Auto) 0.57 (0.11-0.59) K/uL Eos # (Auto) 0.06 (0-0.5) K/uL Baso # (Auto) 0.02 (0-0.2) K/uL Immature Gran # (Auto) 0.02 (0.00-0.02) K/uL Sodium 138 (136-145) mmol/L Potassium 3.6 (3.5-5.1) mmol/L Chloride 105 (98-107) mmol/L Carbon Dioxide 28 (21-32) mmol/L Anion Gap 5.0 (3-11) BUN 13 (7-18) mg/dl Creatinine 0.84 (0.6-1.2) mg/dl Est Cr Clr Drug Dosing 65.4 ml/min Est GFR ( Amer) 88.8 Est GFR (Non-Af Amer) 76.6 BUN/Creatinine Ratio 15.5 (10-20) Glucose 94 (70-99) mg/dl Lactate 0.7 (0.4-2.0) mmol/L Calcium 9.4 (8.5-10.1) mg/dl Total Bilirubin 0.5 (0.2-1) mg/dl AST 29 (15-37) U/L ALT 52 (12-78) U/L Alkaline Phosphatase 94 (45-117) U/L Total Protein 8.0 (6.4-8.2) gm/dl Albumin 3.9 (3.4-5.0) gm/dl Globulin 4.1 H (2.5-4.0) gm/dl Albumin/Globulin Ratio 1.0 (0.9-2) Lipase 78 (73-393) U/L Urine Color Urine Appearance (Clear) Urine pH (4.5-7.5) Ur Specific [place] (1.000-1.030) Urine Protein (Negative) Urine Glucose (UA) (Negative) Urine Ketones (Negative) Urine Blood (Negative) Urine Nitrite (Negative) Urine Bilirubin (Negative) Urine Urobilinogen (Negative) Ur Leukocyte Esterase (Negative) Urine WBC (Auto) (0-5) /hpf Urine RBC (Auto) (0-4) /hpf U Hyaline Cast (Auto) (0-5) /lpf U Epithel Cells (Auto) (0-5) /lpf Urine Bacteria (Auto) (Negative) 05/24/20 Range/Units 04:48 WBC (4.8-10.8) K/uL RBC (4.2-5.4) M/uL Hgb (12.0-16.0) g/dL Hct (37-47) % MCV (80-100) fL MCH (25-34) pg MCHC (32-36) g/dL RDW Std Deviation (36.4-46.3) fL RDW Coeff of Rocio (11.5-14.5) % Plt Count (130-400) K/uL MPV (7.4-10.4) fL Immature Gran % (Auto) % Neut % (Auto) % Lymph % (Auto) % [place] % (Auto) % Eos % (Auto) % Baso % (Auto) % Neut # (Auto) (1.4-6.5) K/uL Lymph # (Auto) (1.2-3.4) K/uL [place] # (Auto) (0.11-0.59) K/uL Eos # (Auto) (0-0.5) K/uL Baso # (Auto) (0-0.2) K/uL Immature Gran # (Auto) (0.00-0.02) K/uL Sodium (136-145) mmol/L Potassium (3.5-5.1) mmol/L Chloride (98-107) mmol/L Carbon Dioxide (21-32) mmol/L Anion Gap (3-11) BUN (7-18) mg/dl Creatinine (0.6-1.2) mg/dl Est Cr Clr Drug Dosing ml/min Est GFR ( Amer) Est GFR (Non-Af Amer) BUN/Creatinine Ratio (10-20) Glucose (70-99) mg/dl Lactate (0.4-2.0) mmol/L Calcium (8.5-10.1) mg/dl Total Bilirubin (0.2-1) mg/dl AST (15-37) U/L ALT (12-78) U/L Alkaline Phosphatase (45-117) U/L Total Protein (6.4-8.2) gm/dl Albumin (3.4-5.0) gm/dl Globulin (2.5-4.0) gm/dl Albumin/Globulin Ratio (0.9-2) Lipase (73-393) U/L Urine Color Yellow Urine Appearance Cloudy A (Clear) Urine pH 6.5 (4.5-7.5) Ur Specific [place] > 1.045 H (1.000-1.030) Urine Protein 1+ H (Negative) Urine Glucose (UA) Negative (Negative) Urine Ketones 1+ H (Negative) Urine Blood Trace H (Negative) Urine Nitrite Negative (Negative) Urine Bilirubin Negative (Negative) Urine Urobilinogen Negative (Negative) Ur Leukocyte Esterase 2+ H (Negative) Urine WBC (Auto) >30 H (0-5) /hpf Urine RBC (Auto) 0-4 (0-4) /hpf U Hyaline Cast (Auto) 1-5 (0-5) /lpf U Epithel Cells (Auto) >30 H (0-5) /lpf Urine Bacteria (Auto) Negative (Negative) Administered Medications Sodium Chloride (Nss) 500 mls @ 125 mls/hr IV .Q4H REHAN Stop: 06/23/20 03:59 Last Admin: 05/24/20 04:25 Dose: 125 mls/hr Documented by: [id number] Discontinued Medications Hydromorphone HCl (Hydromorphone Inj 0.5 Mg/0.5 Ml Syr) 0.5 mg IV NOW STA Stop: 05/24/20 01:50 Last Admin: 05/24/20 02:04 Dose: 0.5 mg Documented by: [id number] Hydromorphone HCl (Hydromorphone Inj 0.5 Mg/0.5 Ml Syr) 0.5 mg IV NOW STA Stop: 05/24/20 03:46 Last Admin: 05/24/20 04:24 Dose: 0.5 mg Documented by: [id number] Sodium Chloride (Nss 1000ml) 1,000 mls @ 999 mls/hr IV .Q1H1M ONE Stop: 05/24/20 02:49 Last Infusion: 05/24/20 03:05 Dose: 0 mls/hr Documented by: [id number] Admin: 05/24/20 02:04 Dose: 999 mls/hr Documented by: [id number] Ioversol (Ioversol 100ml) 93 ml IV ONCE ONE Stop: 05/24/20 03:54 Last Admin: 05/24/20 03:53 Dose: 1 ml Documented by: [id number] Ondansetron HCl (Ondansetron Inj 2 Mg/Ml 2 Ml Vial) 4 mg IV NOW STA Stop: 05/24/20 01:50 Last Admin: 05/24/20 02:04 Dose: 4 mg Documented by: [id number] Ondansetron HCl (Ondansetron Inj 2 Mg/Ml 2 Ml Vial) 4 mg IV NOW STA Stop: 05/24/20 04:17 Last Admin: 05/24/20 04:24 Dose: 4 mg Documented by: [id number] Discharge Plan Visit Data Chief Complaint: Abdominal Pain Stated Complaint: STOMACH PAIN ED Provider: Eva Whitaker Discharge Problem: Acute epigastric pain, COVID-19 Forms Stand Alone Forms: [facility] Prescriptions Prescriptions: No Action (DME) Oxygen Home Liters Per Minute See Rx Instructions .ROUTE .MEDSUPPLY Qty: 1 RF: 0 Symbicort 80-4.5 mcg/actuation HFA aerosol inhaler 2 puff INHALATION BID Qty: 3 RF: 1 levalbuterol tartrate [Xopenex HFA] 45 mcg/actuation HFA aerosol inhaler 2 inh INHALATION BID PRN (Reason: Shortness Of Breath Or Wheezing) Qty: 3 RF: 1 (DME) Oxygen Home Liters Per Minute See Rx Instructions .ROUTE .MEDSUPPLY Qty: 1 RF: 0 (DME) Auto Titrating CPAP Misc See Rx Instructions .ROUTE .MEDSUPPLY Qty: 1 RF: 0 levothyroxine 75 mcg capsule 75 mcg PO QAM RF: 0 meclizine 25 mg tablet 25 mg PO BID PRN (Reason: dizziness) Qty: 30 RF: 1 multivitamin Tablet 1 tab PO DAILY RF: 0 bupropion HCl 150 mg tablet sustained-release 12 hr 150 mg PO BID RF: 0 ascorbic acid (vitamin C) [Vitamin C] 1,000 mg Tablet 1,000 mg PO DAILY RF: 0 atorvastatin 20 mg Tablet 20 mg PO HS RF: 0 cetirizine [Zyrtec] 10 mg Tablet 10 mg PO QAM RF: 0 sertraline [Zoloft] 100 mg Tablet 200 mg PO QAM RF: 0 calcium carbonate [Calcium 600] 600 mg calcium (1,500 mg) Tablet 1,200 mg PO DAILY RF: 0 montelukast [Singulair] 10 mg Tablet 10 mg PO QAM RF: 0 aripiprazole [Abilify] 2 mg Tablet 2 mg PO QAM RF: 0 Vitamin D3 4,000 unit Capsule 4,000 unit PO DAILY RF: 0 lorazepam 1 mg tablet 1 mg PO TID PRN (Reason: Anxiety) RF: 0 gabapentin 600 mg tablet 600 mg PO TID RF: 0 melatonin 5 mg Tablet 5 mg PO HS PRN (Reason: Sleep) RF: 0 hydrocodone-homatropine 5-1.5 mg/5 mL syrup 5 ml PO Q4 PRN (Reason: Cough) RF: 0 omeprazole 40 mg capsule,delayed release(DR/EC) 40 mg PO QAM RF: 0
[2020-05-24 05:05] LABS: Appearance Urine Cloudy (Clear); Bacteria Urine Automated Negative (Negative); Bilirubin Urine Negative (Negative); Blood Urine Trace (Negative); Color Urine Yellow; Epithelial Cell Urine Auto >30 /lpf (0-5); Glucose Urine UA Negative (Negative); Ketones Urine 1+ (Negative); Leukocyte Esterase Urine 2+ (Negative); Nitrite Urine Negative (Negative); Protein Urine 1+ (Negative); Specific Gravity Urine > 1.045 (1.000-1.030); Urobilinogen Urine Negative (Negative); WBC Urine Automated >30 /hpf (0-5); pH Urine 6.5 (4.5-7.5)
[2020-05-24 05:33] LABS: RBC Urine Automated 0-4 /hpf (0-4)
[2020-05-24] MEDS ORDERED: ALBUTEROL HFA 8 GM INHALER INH PRN (06:18)
--- NOTE | 2020-05-24 06:22 | History & Physical Report ---
Date of Service May 24, 2020 Assessment & Plan (1) COVID-19: COVID-19 virus infection with hypoxia/history of prednisone use within the past year for ILD- Place on Decadron 6 mg IV daily for treatment of hypoxia and for stress dosing for adrenal insufficiency Present on Admission?: Yes (2) Acute epigastric pain: Acute epigastric pain/GERD- NPO Examination is most consistent with severe gastritis and/or gastric ulcer. Place on protonix 40 mg IV twice daily. Famotidine 20 mg IV twice daily Present on Admission?: Yes (3) JIGNESH (obstructive sleep apnea): CPAP at bedtime as needed Present on Admission?: Yes (4) MS (multiple sclerosis): Multiple sclerosis/seizure-like activity/anxiety- Hold medications initially while n.p.o. If no procedure done, resume all usual medications Present on Admission?: Yes (5) Asthma: Ventolin HFA 2 puffs 4 times daily as needed Present on Admission?: Yes (6) Anxiety: See above Present on Admission?: Yes History of Present Illness Chief Complaint: The patient presents to the emergency department with the development of severe epigastric and right upper quadrant pain with occasional nausea and without vomiting over the past 24 hours. Primary Care Provider: Izaiah Laughlin Jr, DO Patient is a 60-year-old female the past medical history including multiple sclerosis, JIGNESH, sicca, interstitial lung disease, tremor, nocturnal hypoxemia, TIA, pseudoseizure, seizure, pneumonia and C. difficile colitis. She was diagnosed with COVID-19 infection on 05/21/2020 at this emergency department. With symptoms primarily of fatigue and some mild worsening shortness of breath. She reports that she takes Tylenol on a regular basis, but does not take any NSAIDs or aspirin. She reports having been on prednisone for 3 weeks interstitial lung disease earlier in the year. She does take omeprazole on a daily basis. In the emergency department, pulse ox was 93% on room air. Studies included an ultrasound of the gallbladder which showed diffuse fatty liver with a slightly enlarged at 18 cm the study was negative for gallstones, pericholecystic fluid or gallbladder wall thickening. There was a normal, bile duct at [address] scan of the abdomen the pelvis showed mild basilar atelectasis or scarring. Fatty liver. No calcified gallstones. Left hemicolectomy with distal colon anastomosis as before. No evidence of any acute intra-abdominal process. Allergies Allergy/AdvReac Type Severity Reaction Status Date / Time azithromycin Allergy Severe Swelling Verified 05/24/20 02:45 of Lip/Tongue/Throat fish oil Allergy Severe tongue Verified 05/24/20 02:45 swells and trouble breathing ciprofloxacin Allergy Intermediate itchy Verified 05/24/20 02:45 clindamycin Allergy Intermediate HIVES Verified 05/24/20 02:45 meloxicam Allergy Intermediate rash Verified 05/24/20 02:45 metoclopramide Allergy Intermediate itchy Verified 05/24/20 02:45 morphine Allergy Intermediate LOCAL Verified 05/24/20 02:45 REACTION TO IV PUSH pregabalin Allergy Intermediate rash Verified 05/24/20 02:45 Quinolones Allergy Intermediate HIVES Verified 05/24/20 02:45 vancomycin Allergy Intermediate RASH Verified 05/24/20 02:45 cefaclor Allergy Mild RASH, HAS Verified 05/24/20 02:45 TOLERATED AUGMENTIN W/O RXN tetracycline Allergy Mild Unknown Verified 05/24/20 02:45 carbamazepine Allergy Unknown Unknown Verified 05/24/20 02:45 cevimeline Allergy Unknown anxious Verified 05/24/20 02:45 doxycycline AdvReac Intermediate sores on Verified 05/24/20 02:45 tongue fexofenadine AdvReac Intermediate itchy Verified 05/24/20 02:45 influenza virus vaccine AdvReac Intermediate excerbation Verified 05/24/20 02:45 trivalent of multiple sclerosis phenytoin AdvReac Mild dizzy Verified 05/24/20 02:45 Home Medications Medication Instructions Recorded Confirmed Type Vitamin D3 4,000 unit PO DAILY 04/21/18 05/24/20 History aripiprazole [Abilify] 2 mg PO QAM 04/21/18 05/24/20 History ascorbic acid (vitamin C) [Vitamin 1,000 mg PO DAILY 04/21/18 05/24/20 History C] atorvastatin 20 mg PO HS 04/21/18 05/24/20 History bupropion HCl 150 mg PO BID 04/21/18 05/24/20 History calcium carbonate [Calcium 600] 1,200 mg PO DAILY 04/21/18 05/24/20 History cetirizine [Zyrtec] 10 mg PO QAM 04/21/18 05/24/20 History montelukast [Singulair] 10 mg PO QAM 04/21/18 05/24/20 History multivitamin 1 tab PO DAILY 04/21/18 05/24/20 History sertraline [Zoloft] 200 mg PO QAM 04/21/18 05/24/20 History melatonin 5 mg PO HS PRN 10/25/18 05/24/20 History levothyroxine 75 mcg capsule 75 mcg PO QAM 01/30/19 05/24/20 History lorazepam 1 mg tablet 1 mg PO TID PRN tab 01/30/19 05/24/20 History omeprazole 40 mg PO QAM 02/16/19 05/24/20 History gabapentin 600 mg tablet 600 mg PO TID tab 08/09/19 05/24/20 History Oxygen Home #1 ea 12/03/19 04/23/20 Rx CPAP Machine #1 ea 01/25/20 04/23/20 Rx budesonide-formoterol HFA 80 2 puff INHALATION BID #3 inhaler 03/05/20 05/24/20 Rx mcg-4.5 mcg/actuation aerosol inhaler meclizine 25 mg tablet 25 mg PO BID PRN #30 tab 03/25/20 05/24/20 Rx Oxygen Home #1 ea 04/23/20 04/23/20 Rx levalbuterol tartrate 45 2 inh INHALATION BID PRN #3 inhaler 04/23/20 05/24/20 Rx mcg/actuation aerosol inhaler hydrocodone-homatropine 5 ml PO Q4 PRN 05/21/20 05/24/20 History Past Med/Surg History Medical History (Updated 05/24/20 @ 06:13 by Zia Raman MD) Anxiety Asthma HX OF CHRONIC BRONCHIAL ASTHMA. PT IS CURRENTLY FOLLOWING [facility]. AND HAD BRONCH OCTOBER 2018 Diverticular disease Diverticulitis GERD (gastroesophageal reflux disease) Hyperlipidemia Hypothyroidism MS (multiple sclerosis) Pseudoseizure R/T AN ACUTE MS ATTACK, STATES THAT WITH AN ATTACK HER EXTREMITIES "FLAIL". PT HAS HAD TESTING/NEURO WORK UP Surgical History History of arthroscopy RT KNEE 2015 History of bowel resection History of bronchoscopy History of colonoscopy Family History Father Cancer Myocardial infarction Hypertension Mother Cancer Sister Cancer Hypertension Brother Cancer Hypertension Social History Smoking Status: Never smoker Cigarettes Per Day: 0; Second Hand Exposure: No; Hx Alcohol Use: No Hx Substance Use: No Preferred Language: Comoran Communication Ability: Effective Eligibility Examiner Required: No Beliefs That Will Affect Care: None marital status: Current Living Situation: Spouse current occupational status: disabled Feels Safe at Home: Yes Assistive Devices: None Review of Systems Review of Systems: The patient denies chest pain, palpitations, shortness of breath, dyspnea on exertion, cough, lower extremity swelling, sore throat, fevers, chills, sweats, vomiting, diarrhea , constipation, pelvic p ain, blood in urine or stool, dysuria, urinary frequency or urgency, lightheadedness, dizziness, headache, memory loss, loss of consciousness, rash, abnormal bruising or bleeding, imbalance, focal or generalized weakness, numbness or tingling in arms or legs, back or neck pain, or night sweats. The review of systems is otherwise negative other than for that already noted above, and at least 10 systems have been reviewed. Physical Exam Physical Exam: The patient is awake, alert and oriented 3, well developed and well nourished, normocephalic and atraumatic, lying in bed and in no acute distress. HEENT--PERRL, EOMI, mucous membranes and oropharynx dry. Neck--supple. No JVD. No bruits. Thyroid normal, trachea midline, no adenopathy. Heart--normal S1 and S2. No murmurs, rubs or gallops. Lungs--clear bilaterally, no respiratory distress, no accessory muscle use. Abdomen--normal bowel sounds and soft. Nondistended. Mild epigastric tenderness upon palpation Extremities--no cyanosis or clubbing. No edema. Dermatologic--normal skin turgor, normal color, no abnormal lymph nodes, no rash. Neurologic--cranial nerves II through XII grossly intact. Rheumatologic--normal range of motion. Psychiatric--normal affect. Results & Data Results & Data ([facility]) Vital Signs (Past 12 Hours) Vital Signs Temp Pulse Pulse Resp BP BP Pulse Ox 05/24/20 04:54 64 14 164/90 H 94 05/24/20 03:19 64 16 158/86 H 93 05/24/20 02:19 93 05/24/20 02:14 72 20 143/95 H 93 05/24/20 01:07 98.4 F 88 20 158/97 H 94 Laboratory Results Laboratory Results WBC 6.15 K/uL (4.8-10.8) 05/24/20 02:12 RBC 5.35 M/uL (4.2-5.4) 05/24/20 02:12 Hgb 16.7 g/dL (12.0-16.0) H 05/24/20 02:12 Hct 48.0 % (37-47) H 05/24/20 02:12 MCV 89.7 fL (80-100) 05/24/20 02:12 MCH 31.2 pg (25-34) 05/24/20 02:12 MCHC 34.8 g/dL (32-36) 05/24/20 02:12 RDW Std Deviation 41.0 fL (36.4-46.3) 05/24/20 02:12 RDW Coeff of Rocio 12.6 % (11.5-14.5) 05/24/20 02:12 Plt Count 193 K/uL (130-400) 05/24/20 02:12 MPV 9.5 fL (7.4-10.4) 05/24/20 02:12 Immature Gran % (Auto) 0.3 % 05/24/20 02:12 Neut % (Auto) 57.9 % 05/24/20 02:12 Lymph % (Auto) 31.2 % 05/24/20 02:12 [place] % (Auto) 9.3 % 05/24/20 02:12 Eos % (Auto) 1.0 % 05/24/20 02:12 Baso % (Auto) 0.3 % 05/24/20 02:12 Neut # (Auto) 3.56 K/uL (1.4-6.5) 05/24/20 02:12 Lymph # (Auto) 1.92 K/uL (1.2-3.4) 05/24/20 02:12 [place] # (Auto) 0.57 K/uL (0.11-0.59) 05/24/20 02:12 Eos # (Auto) 0.06 K/uL (0-0.5) 05/24/20 02:12 Baso # (Auto) 0.02 K/uL (0-0.2) 05/24/20 02:12 Immature Gran # (Auto) 0.02 K/uL (0.00-0.02) 05/24/20 02:12 Sodium 138 mmol/L (136-145) 05/24/20 02:12 Potassium 3.6 mmol/L (3.5-5.1) 05/24/20 02:12 Chloride 105 mmol/L (98-107) 05/24/20 02:12 Carbon Dioxide 28 mmol/L (21-32) 05/24/20 02:12 Anion Gap 5.0 (3-11) 05/24/20 02:12 BUN 13 mg/dl (7-18) 05/24/20 02:12 Creatinine 0.84 mg/dl (0.6-1.2) 05/24/20 02:12 Est Cr Clr Drug Dosing 65.4 ml/min 05/24/20 02:12 Est GFR ( Amer) 88.8 05/24/20 02:12 Est GFR (Non-Af Amer) 76.6 05/24/20 02:12 BUN/Creatinine Ratio 15.5 (10-20) 05/24/20 02:12 Glucose 94 mg/dl (70-99) 05/24/20 02:12 Lactate 0.7 mmol/L (0.4-2.0) 05/24/20 04:16 Calcium 9.4 mg/dl (8.5-10.1) 05/24/20 02:12 Total Bilirubin 0.5 mg/dl (0.2-1) 05/24/20 02:12 AST 29 U/L (15-37) 05/24/20 02:12 ALT 52 U/L (12-78) 05/24/20 02:12 Alkaline Phosphatase 94 U/L (45-117) 05/24/20 02:12 Total Protein 8.0 gm/dl (6.4-8.2) 05/24/20 02:12 Albumin 3.9 gm/dl (3.4-5.0) 05/24/20 02:12 Globulin 4.1 gm/dl (2.5-4.0) H 05/24/20 02:12 Albumin/Globulin Ratio 1.0 (0.9-2) 05/24/20 02:12 Lipase 78 U/L (73-393) 05/24/20 02:12 Urine Color Yellow 05/24/20 04:48 Urine Appearance Cloudy (Clear) A 05/24/20 04:48 Urine pH 6.5 (4.5-7.5) 05/24/20 04:48 Ur Specific [place] > 1.045 (1.000-1.030) H 05/24/20 04:48 Urine Protein 1+ (Negative) H 05/24/20 04:48 Urine Glucose (UA) Negative (Negative) 05/24/20 04:48 Urine Ketones 1+ (Negative) H 05/24/20 04:48 Urine Blood Trace (Negative) H 05/24/20 04:48 Urine Nitrite Negative (Negative) 05/24/20 04:48 Urine Bilirubin Negative (Negative) 05/24/20 04:48 Urine Urobilinogen Negative (Negative) 05/24/20 04:48 Ur Leukocyte Esterase 2+ (Negative) H 05/24/20 04:48 Urine WBC (Auto) >30 /hpf (0-5) H 05/24/20 04:48 Urine RBC (Auto) 0-4 /hpf (0-4) 05/24/20 04:48 U Hyaline Cast (Auto) 1-5 /lpf (0-5) 05/24/20 04:48 U Epithel Cells (Auto) >30 /lpf (0-5) H 05/24/20 04:48 Urine Bacteria (Auto) Negative (Negative) 05/24/20 04:48 Diagnostic Findings [facility] Patient: GREGORY LOPEZ (Female) : 64 Status: ER Date: 05/24/20 04:47 Room #: History: epigastric pain appen pres pos covid Slices: 697 Priors: Tech: Billy Frost @ [phone] Exams: CT ABDOMEN & PELVIS With Contrast Contrast: IV Amt: 93 ml opotiray Accession Numbers: [id number] Preliminary Findings Only See Final Report For Complete Findings CT ABDOMEN & PELVIS With Contrast: Comparison 02/16/2019. Mild bibasilar atelectasis or scarring. Fatty liver. No calcified gallstones. No dilated bowel. Unremarkable appendix. Left hemicolectomy with distal colon anastomosis, as before. Mild colonic diverticulosis. No CT evidence for diverticulitis. No acute intra-abdominal process. Radiologist: Chris Wallace M.D. Study ready at 04:50 and initial results transmitted at 04:59 *This report constitutes a preliminary interpretation only. Non-acute findings felt to be unrelated to the clinical presentation may not be discussed in this report. The study will be interpreted and a final report will be generated by the local Radiologist the following shift. To reach the hospital radiology department call [phone]. If a discrepancy is found between the preliminary and final interpretations of this study, please notify us via our Client Portal at [email or web address].You can also fax this report with a description of the discrepancy, or include the final report, to our daytime fax number [phone].If faxing, please indicate the severity of discrepancy using one of the following categories: [ ] 1 - Agree/Informational [ ] 2 - Unlikely to Affect Management [ ] 3 - Possible Eventual Change of Management [ ] 4 - Probable Immediate Change of Management For all other patient related information, please fax us at [phone]. [id number] [facility] Patient: GREGORY LOPEZ (Female) : 64 Status: ER Date: 05/24/20 02:49 Room #: History: RUQ pain Slices: 60 Priors: Tech: Petrona Hernandez @ [phone] Exams: US GALLBLADDER Contrast: Accession Numbers: [id number] Preliminary Findings Only See Final Report For Complete Findings US GALLBLADDER: Diffuse fatty liver. Slightly enlarged liver at 18 cm. Negative for gallbladder stones, pericholecystic fluid or gallbladder wall thickening. Normal CBD at 3 mm. Normal right kidney at 10.3 cm. Radiologist: Felisha Fierro MD Study ready at 02:53 and initial results transmitted at 03:19 *This report constitutes a preliminary interpretation only. Non-acute findings felt to be unrelated to the clinical presentation may not be discussed in this report. The study will be interpreted and a final report will be generated by the local Radiologist the following shift. To reach the hospital radiology department call [phone]. If a discrepancy is found between the preliminary and final interpretations of this study, please notify us via our Client Portal at [email or web address].You can also fax this report with a description of the discrepancy, or include the final report, to our daytime fax number [phone].If faxing, please indicate the severity of discrepancy using one of the following categories: [ ] 1 - Agree/Informational [ ] 2 - Unlikely to Affect Management [ ] 3 - Possible Eventual Change of Management [ ] 4 - Probable Immediate Change of Management For all other patient related information, please fax us at [phone]. [id number] Code Status & VTE Plan Code Status Full code VTE Prophylaxis Plan VTE Prophylaxis will be ordered: Yes PG Care Time/CCT Total # of Minutes Spent Total Time Spent with Patient: Total time spent is greater than 50% in coordination of care (as documented) at patient's floor/unit and/or counseling patient: Coding Level of Care Code 92043 OBS Care - Level 3 Diagnoses COVID-19 U07.1 Acute epigastric pain R10.13 JIGNESH (obstructive sleep apnea) G47.33 MS (multiple sclerosis) G35 Asthma J45.909 Anxiety F41.9
--- NOTE | 2020-05-24 08:41 | XRay Report ---
XR chest 1V portable HISTORY: 60 years-old Female right lower chest wall pain acute pain of the right lower chest wall COMPARISON: CT abdomen and pelvis of same day, chest radiograph 05/21/2020 TECHNIQUE: Portable AP view of the chest FINDINGS: Cardiac silhouette is mildly enlarged. Minimal ill-defined mostly linear bibasilar densities. No pneu mothorax, pleural effusion, overt pulmonary edema or or lobar airspace consolidation. Bones of the ch est appear grossly intact. IMPRESSION: Mild bibasilar linear opacities are redemonstrated suggestive of probable atelectasis. ACT 112: Negative or not required by law. The above report was generated using voice recognition software. It may contain grammatical, syntax o r spelling errors. Electronically signed by: Kenan Davis M.D. 05/24/2020 8:40 AM
--- NOTE | 2020-05-24 08:51 | Ultrasound Report ---
US gallbladder HISTORY: 60 years-old Female eval for choley acute right upper quadrant abdominal pain COMPARISON: CT abdomen and pelvis of same day TECHNIQUE: Multiple real-time sonographic images of the abdominal right upper quadrant were obtained assessing grayscale appearance and color flow FINDINGS: The visualized pancreas is unremarkable. Increased echogenicity with poor through transmission of the liver. Trace gallbladder sludge without shadowing cholelithiasis, wall thickening or pericholecystic fluid. Sonographic Manzano sign reported as negative. Normal common bile duct, 3 mm. The imaged right kidney is unremarkable without hydronephrosis. IMPRESSION: 1. Trace gallbladder sludge without cholelithiasis or sonographic evidence of acute cholecystitis. 2. No biliary ductal dilation. 3. Hepatic steatosis. ACT 112: Negative or not required by law. The above report was generated using voice recognition software. It may contain grammatical, syntax o r spelling errors. Electronically signed by: Kenan Davis M.D. 05/24/2020 8:49 AM
--- NOTE | 2020-05-24 09:11 | CT Scan Report ---
ABDOMEN AND PELVIS CT WITH IV CONTRAST CT DOSE: 662.36 mGycm HISTORY: Acute right upper quadrant and epigastric abdominal pain. COVID Positive. RuQ and epigastric pain - eval ischemic bowel TECHNIQUE: Multiaxial CT images of the abdomen and pelvis were performed following the IV administrat ion of 93 cc of Optiray 320, A dose lowering technique was utilized adhering to the principles of AL AMARILIS. COMPARISON STUDY: Chest radiograph of same day, CT abdomen and pelvis 02/16/2019 FINDINGS: Peripheral groundglass opacities of the lung bases are noted along with mild dependent subs egmental bibasilar atelectasis. Postoperative changes with mild scarring of the right lung base. No p neumatosis or pneumoperitoneum. Imaged inferior cardiac chambers are unremarkable. The spleen is mild ly enlarged, 14.5 cm. The pancreas and adrenal glands are unremarkable. Patency of the hepatic and po rtal veins. Hepatic steatosis. Ill-defined increased attenuation of the liver adjacent to the diane h epatis suggests areas of probable fatty sparing. Kidneys, ureters, urinary bladder and uterus are unremarkable. No adnexal mass lesion. Mild calcified plaque the abdominal aorta without aneurysm. No adenopathy. No bowel obstruction or bowel wall thick ening. Postoperative changes of partial left hemicolectomy with colocolonic anastomosis. Colonic dive rticulosis without acute diverticulitis. Noninflamed appendix. No ascites or mesenteric inflammation. Breast parenchyma and soft tissues appear unremarkable. Bones appear intact. IMPRESSION: 1. No bowel obstruction or bowel wall thickening. 2. Partial left hemicolectomy with colocolonic anastomosis. 3. No bowel obstruction or bowel wall thickening. Normal appendix. 4. Colonic diverticulosis. 5. Peripheral groundglass opacities of the left lung base may reflect atelectasis versus a nonspecifi c pneumonitis. 6. Hepatic steatosis. ACT 112: Negative or not required by law. The above report was generated using voice recognition software. It may contain grammatical, syntax o r spelling errors. Electronically signed by: Kenan Davis M.D. 05/24/2020 9:09 AM
[2020-05-24] MEDS: HYDROmorphone INJ 0.5 MG/0.5 ML SYR IV PRN ×3 (10:30→20:53)
[2020-05-24] MEDS: dexAMETHasone 6 MG in SYRINGE 0 ML IV SCH (12:41)
[2020-05-24] MEDS: PANTOprazole 40 MG in SYRINGE 0 ML IV SCH ×2 (12:41→20:53)
[2020-05-24] MEDS: FAMOTIDINE 20 MG in SYRINGE 3 ML IV SCH ×2 (12:41→20:53)
[2020-05-24] MEDS: NSS + 20MEQ KCL 20 MEQ/1,000 ML BAG IV SCH ×2 (12:42→21:14)
[2020-05-24] MEDS: ONDANSETRON INJ 2 MG/ML 2 ML VIAL IV PRN (15:59)
[2020-05-25] MEDS: HYDROmorphone INJ 0.5 MG/0.5 ML SYR IV PRN ×4 (01:34→15:55)
[2020-05-25] MEDS: NSS + 20MEQ KCL 20 MEQ/1,000 ML BAG IV SCH ×2 (07:01→15:54)
[2020-05-25] MEDS: PANTOprazole 40 MG in SYRINGE 0 ML IV SCH ×2 (08:40→20:10)
[2020-05-25] MEDS: dexAMETHasone 6 MG in SYRINGE 0 ML IV SCH (08:41)
--- NOTE | 2020-05-25 09:16 | Gastrointestinal Consultation ---
Date of Consultation May 25, 2020 Supervising Physician Co-Signing Physician Notes Abdominal pain- could be gastritis, superficial ulcer. Hgb stable. No active signs of blood loss per her hemodynamics or drop in hgb. She has been on steroids, ? nsaid's. Would continue with IV PPI for now- consider twice daily dosing, prn antinausea medications. This consult was done for [facility]. History of Present Illness Reason for Consultation: Abdominal pain Requesting Physician: Dr. Raman Attending Physician: Kal Silvestre History of Present Illness 60 yo fm with a history of prior left hemicolectomy for diverticulitis, admitted through the ER. Reports abdominal pain and nausea.. Covid + from 05/21/20. Denies significant nsaid use. No overt bleeding noted. She is having mild nausea. No other acute complaints today to me other than just not feeling fatigued/ Allergies Allergy/AdvReac Type Severity Reaction Status Date / Time azithromycin Allergy Severe Swelling Verified 05/24/20 02:45 of Lip/Tongue/Throat fish oil Allergy Severe tongue Verified 05/24/20 02:45 swells and trouble breathing ciprofloxacin Allergy Intermediate itchy Verified 05/24/20 02:45 clindamycin Allergy Intermediate HIVES Verified 05/24/20 02:45 meloxicam Allergy Intermediate rash Verified 05/24/20 02:45 metoclopramide Allergy Intermediate itchy Verified 05/24/20 02:45 morphine Allergy Intermediate LOCAL Verified 05/24/20 02:45 REACTION TO IV PUSH pregabalin Allergy Intermediate rash Verified 05/24/20 02:45 Quinolones Allergy Intermediate HIVES Verified 05/24/20 02:45 vancomycin Allergy Intermediate RASH Verified 05/24/20 02:45 cefaclor Allergy Mild RASH, HAS Verified 05/24/20 02:45 TOLERATED AUGMENTIN W/O RXN tetracycline Allergy Mild Unknown Verified 05/24/20 02:45 carbamazepine Allergy Unknown Unknown Verified 05/24/20 02:45 cevimeline Allergy Unknown anxious Verified 05/24/20 02:45 doxycycline AdvReac Intermediate sores on Verified 05/24/20 02:45 tongue fexofenadine AdvReac Intermediate itchy Verified 05/24/20 02:45 influenza virus vaccine AdvReac Intermediate excerbation Verified 05/24/20 02:45 trivalent of multiple sclerosis phenytoin AdvReac Mild dizzy Verified 05/24/20 02:45 Home Medications Medication Instructions Recorded Confirmed Type Vitamin D3 4,000 unit PO DAILY 04/21/18 05/24/20 History aripiprazole [Abilify] 2 mg PO QAM 04/21/18 05/24/20 History ascorbic acid (vitamin C) [Vitamin 1,000 mg PO DAILY 04/21/18 05/24/20 History C] atorvastatin 20 mg PO HS 04/21/18 05/24/20 History bupropion HCl 150 mg PO BID 04/21/18 05/24/20 History calcium carbonate [Calcium 600] 1,200 mg PO DAILY 04/21/18 05/24/20 History cetirizine [Zyrtec] 10 mg PO QAM 04/21/18 05/24/20 History montelukast [Singulair] 10 mg PO QAM 04/21/18 05/24/20 History multivitamin 1 tab PO DAILY 04/21/18 05/24/20 History sertraline [Zoloft] 200 mg PO QAM 04/21/18 05/24/20 History melatonin 5 mg PO HS PRN 10/25/18 05/24/20 History levothyroxine 75 mcg capsule 75 mcg PO QAM 01/30/19 05/24/20 History lorazepam 1 mg tablet 1 mg PO TID PRN tab 01/30/19 05/24/20 History omeprazole 40 mg PO QAM 02/16/19 05/24/20 History gabapentin 600 mg tablet 600 mg PO TID tab 08/09/19 05/24/20 History Oxygen Home #1 ea 12/03/19 04/23/20 Rx CPAP Machine #1 ea 01/25/20 04/23/20 Rx budesonide-formoterol HFA 80 2 puff INHALATION BID #3 inhaler 03/05/20 05/24/20 Rx mcg-4.5 mcg/actuation aerosol inhaler meclizine 25 mg tablet 25 mg PO BID PRN #30 tab 03/25/20 05/24/20 Rx Oxygen Home #1 ea 04/23/20 04/23/20 Rx levalbuterol tartrate 45 2 inh INHALATION BID PRN #3 inhaler 04/23/20 05/24/20 Rx mcg/actuation aerosol inhaler hydrocodone-homatropine 5 ml PO Q4 PRN 11/25/20 11/28/20 History Patient History Medical History (Updated 05/24/20 @ 07:07 by Eva Whitaker DO) Anxiety Asthma HX OF CHRONIC BRONCHIAL ASTHMA. PT IS CURRENTLY FOLLOWING [facility]. AND HAD BRONCH OCTOBER 2018 Diverticular disease Diverticulitis GERD (gastroesophageal reflux disease) Hyperlipidemia Hypothyroidism MS (multiple sclerosis) Pseudoseizure R/T AN ACUTE MS ATTACK, STATES THAT WITH AN ATTACK HER EXTREMITIES "FLAIL". PT HAS HAD TESTING/NEURO WORK UP Surgical History History of arthroscopy RT KNEE 2015 History of bowel resection History of bronchoscopy History of colonoscopy Family History Father Cancer Myocardial infarction Hypertension Mother Cancer Sister Cancer Hypertension Brother Cancer Hypertension Social History Smoking Status: Never smoker Cigarettes Per Day: 0; Second Hand Exposure: No; Hx Alcohol Use: No Hx Substance Use: No Preferred Language: Palauan Communication Ability: Effective Telecommunication Equipment Repairer Required: No Beliefs That Will Affect Care: None marital status: Current Living Situation: Spouse current occupational status: disabled Feels Safe at Home: Yes Assistive Devices: Glasses Review of Systems Review of Systems: All systems reviewed & are unremarkable except as noted in HPI & below Physical Exam Physical Exam: Discussion over the telephone so no exam was performed. Results & Data ([facility]) Vital Signs (Past 12 Hours) Vital Signs Temp Pulse Resp BP Pulse Ox 05/25/20 06:58 36.7 C 71 18 135/72 94 05/25/20 00:56 37.0 C 72 19 160/89 H 95
[2020-05-25] MEDS: ONDANSETRON INJ 2 MG/ML 2 ML VIAL IV PRN (09:56)
[2020-05-25] MEDS: FAMOTIDINE 20 MG in SYRINGE 3 ML IV SCH ×2 (09:56→20:10)
[2020-05-25] MEDS: LIDOCAINE 5% 1 PATCH TD SCH (18:21)
--- NOTE | 2020-05-25 22:23 | Hospitalist Progress Note ---
Date of Service May 25, 2020 Assessment & Plan (1) COVID-19: COVID-19 virus infection with hypoxia/history of prednisone use within the past year for ILD- Place on Decadron 6 mg IV daily for treatment of hypoxia and for stress dosing for adrenal insufficiency (2) Acute epigastric pain: Acute epigastric pain/GERD- will try a diet Examination is most consistent with severe gastritis and/or gastric ulcer. Place on protonix 40 mg IV twice daily. Famotidine 20 mg IV twice daily (3) JIGNESH (obstructive sleep apnea): CPAP at bedtime as needed (4) MS (multiple sclerosis): Multiple sclerosis/seizure-like activity/anxiety- will resume all usual medications if tolerating clear diet. (5) Asthma: Ventolin HFA 2 puffs 4 times daily as needed (6) Anxiety: See above Admission and Anticipated Discharge Date Admission Date: May 24, 2020 Subjective Patient today is complaining of pain howeverit is loated on the right lower chest anteriorly. She reports it is painful to palpation. Review of Systems Review of Systems: The patient denies chest pain, palpitations, shortness of breath, dyspnea on exertion, cough, lower extremity swelling, sore throat, fevers, chills, sweats, vomiting, diarrhea , constipation, pelvic pain, blood in urine or stool, dysuria, urinary frequency or urgency, lightheadedness, dizziness, headache, memory loss, loss of consciousness, rash, abnormal bruising or bleeding, imbalance, focal or generalized weakness, numbness or tingling in arms or legs, back or neck pain, or night sweats. The review of systems is otherwise negative other than for that already noted above, and at least 10 systems have been reviewed. Physical Exam Physical Exam: The patient is awake, alert and oriented 3, well developed and well nourished, normocephalic and atraumatic, lying in bed and in no acute distress. HEENT--PERRL, EOMI, mucous membranes and oropharynx dry. Neck--supple. No JVD. No bruits. Thyroid normal, trachea midline, no adenopathy. Heart--normal S1 and S2. No murmurs, rubs or gallops. Lungs--clear bilaterally, no respiratory distress, no accessory muscle use. Pain on palpation in right lower chest. Abdomen--normal bowel sounds and soft. Nondistended. Nontender Extremities--no cyanosis or clubbing. No edema. Dermatologic--normal skin turgor, normal color, no abnormal lymph nodes, no rash. Neurologic--cranial nerves II through XII grossly intact. Rheumatologic--normal range of motion. Psychiatric--normal affect. Results & Data Results & Data ([facility]) Vital Signs (Past 12 Hours) Vital Signs Temp Pulse Resp BP Pulse Ox 05/25/20 16:04 36.5 C 69 18 130/84 98 PG Care Time/CCT Total # of Minutes Spent Total Time Spent with Patient: Total time spent is greater than 50% in coordination of care (as documented) at patient's floor/unit and/or counseling patient: Coding Level of Care Code 86831 Subseq Hosp Care Lvl 2 Diagnoses COVID-19 U07.1 Acute epigastric pain R10.13 JIGNESH (obstructive sleep apnea) G47.33 MS (multiple sclerosis) G35 Asthma J45.909 Anxiety F41.9
[2020-05-26] MEDS: NSS + 20MEQ KCL 20 MEQ/1,000 ML BAG IV SCH ×3 (01:54→20:54)
[2020-05-26] MEDS: LIDOCAINE 5% 1 PATCH TD SCH (08:26)
[2020-05-26] MEDS: dexAMETHasone 6 MG in SYRINGE 0 ML IV SCH (08:26)
[2020-05-26] MEDS: PANTOprazole 40 MG in SYRINGE 0 ML IV SCH ×2 (08:26→20:44)
[2020-05-26] MEDS: FAMOTIDINE 20 MG in SYRINGE 3 ML IV SCH ×2 (08:33→20:54)
[2020-05-26 08:45] LABS: Hematocrit (blood only) 43.7 % (37-47); Hemoglobin 14.9 g/dL (12.0-16.0); Mean Corpuscular Hgb Conc 34.1 g/dL (32-36); Mean Corpuscular Volume 90.9 fL (80-100); Mean Platelet Volume 9.5 fL (7.4-10.4); Platelet Count 233 K/uL (130-400); RDW Coefficient of Variation 12.7 % (11.5-14.5); RDW Standard Deviation 42.4 fL (36.4-46.3); Red Blood Count 4.81 M/uL (4.2-5.4); White Blood Count 6.37 K/uL (4.8-10.8)
[2020-05-26 09:12] LABS: BUN Creatinine Ratio 15.9 (10-20); Calcium 9.4 mg/dl (8.5-10.1); Creatinine Clr Calc Pharmacy 53.3 ml/min; Est GFR (African American) 69.4; Est GFR (Non-African American) 59.9; Potassium 4.1 mmol/L (3.5-5.1)
--- NOTE | 2020-05-26 10:16 | Communication Note ---
Date of Service: May 26, 2020 In effort to minimize healthcare worker exposure due to COVID19 infection in this patient, this note was generated based on thorough chart review. Patient is a 60 yo female hospitalized with COVID19 infection who has abdominal pain. The patient has been evaluated by Dr. Barrientos of [facility] [employer] vehicle crewman coverage over the weekend. The patient has epigastric/RUQ abdominal pain in the setting of Prednisone & NSAID use. CT scan of the abdomen was without significant findings. US indicated gallbladder sludge. She has no evidence of GI bleeding at present. H/H normal. Differential includes gastritis vs PUD vs viral infection vs other. -Recommend continuation of Protonix 40 mg IV BID -Continue Famotidine 20 mg BID -Add Carafate 1 gm four times daily before meals and bedtime -If symptoms persist, consider checking H Pylori stool antigen and further evaluation of gallbladder sludge, though would focus on treatment of acute COVID19 infection at present. Agree with NICK Verma as above Continue current therapy No plans for EGD at this time due to COVID status and no alarm symptoms
[2020-05-26] MEDS: ONDANSETRON INJ 2 MG/ML 2 ML VIAL IV PRN (10:47)
[2020-05-26] MEDS: SUCRALFATE 1 GM/10 ML UDC PO SCH ×3 (11:36→20:44)
[2020-05-26] MEDS: HYDROmorphone INJ 0.5 MG/0.5 ML SYR IV PRN ×3 (12:48→20:54)
[2020-05-26] MEDS ORDERED: METOCLOPRAMIDE HCL INJ 5 MG/ML 2 ML VIAL IV STA (15:56)
[2020-05-26] MEDS ORDERED: LORazepam 1 MG TAB PO PRN (18:16)
--- NOTE | 2020-05-26 23:18 | Hospitalist Progress Note ---
Date of Service May 26, 2020 Assessment & Plan (1) COVID-19: COVID-19 virus infection with hypoxia/history of prednisone use within the past year for ILD- Place on Decadron 6 mg IV daily for treatment of hypoxia and for stress dosing for adrenal insufficiency Added sucralfate (2) Acute epigastric pain: Acute epigastric pain/GERD- will try a diet Examination is most consistent with severe gastritis and/or gastric ulcer. Place on protonix 40 mg IV twice daily. Famotidine 20 mg IV twice daily (3) JIGNESH (obstructive sleep apnea): CPAP at bedtime as needed (4) MS (multiple sclerosis): Multiple sclerosis/seizure-like activity/anxiety- will resume all usual medications if tolerating clear diet. (5) Asthma: Ventolin HFA 2 puffs 4 times daily as needed (6) Anxiety: See above Admission and Anticipated Discharge Date Admission Date: May 25, 2020 Subjective 60 yo female reports that she continues to have pain. Now it is midsterum and worsens when she eats. D/W gastro, will treat with sucralfate. Review of Systems Review of Systems: All systems reviewed & are unremarkable except as noted in HPI & below Physical Exam Physical Exam: The patient is awake, alert and oriented 3, well developed and well nourished, normocephalic and atraumatic, lying in bed and in no acute distress. HEENT--PERRL, EOMI, mucous membranes and oropharynx dry. Neck--supple. No JVD. No bruits. Thyroid normal, trachea midline, no adenopathy. Heart--normal S1 and S2. No murmurs, rubs or gallops. Lungs--clear bilaterally, no respiratory distress, no accessory muscle use. Pain on palpation in right lower chest. Abdomen--normal bowel sounds and soft. Nondistended. Nontender Extremities--no cyanosis or clubbing. No edema. Dermatologic--normal skin turgor, normal color, no abnormal lymph nodes, no rash. Neurologic--cranial nerves II through XII grossly intact. Rheumatologic--normal range of motion. Psychiatric--normal affect. Results & Data Results & Data ([facility]) Vital Signs (Past 12 Hours) Vital Signs Temp Pulse Resp BP Pulse Ox 05/26/20 15:50 37.0 C 68 18 144/87 H 95 PG Care Time/CCT Total # of Minutes Spent Total Time Spent with Patient: Total time spent is greater than 50% in coordination of care (as documented) at patient's floor/unit and/or counseling patient: Coding Level of Care Code 94334 Subseq Hosp Care Lvl 2 Diagnoses COVID-19 U07.1 Acute epigastric pain R10.13 JIGNESH (obstructive sleep apnea) G47.33 MS (multiple sclerosis) G35 Asthma J45.909 Anxiety F41.9
[2020-05-27] MEDS: HYDROmorphone INJ 0.5 MG/0.5 ML SYR IV PRN ×2 (03:24→07:58)
[2020-05-27] MEDS: dexAMETHasone 6 MG in SYRINGE 0 ML IV SCH (07:56)
[2020-05-27] MEDS: SUCRALFATE 1 GM/10 ML UDC PO SCH ×3 (07:56→16:43)
[2020-05-27] MEDS: FAMOTIDINE 20 MG in SYRINGE 3 ML IV SCH (07:57)
[2020-05-27] MEDS: LIDOCAINE 5% 1 PATCH TD SCH (07:57)
[2020-05-27] MEDS: PANTOprazole 40 MG in SYRINGE 0 ML IV SCH (07:57)
[2020-05-27] MEDS: NSS + 20MEQ KCL 20 MEQ/1,000 ML BAG IV SCH (07:58)
[2020-05-27] MEDS ORDERED: SERTRALINE HCL 100 MG TABLET PO SCH (09:30)
[2020-05-27] MEDS ORDERED: LEVOTHYROXINE SODIUM 75 MCG TABLET PO SCH (09:30)
[2020-05-27] MEDS ORDERED: MONTELUKAST SODIUM 10 MG TABLET PO SCH (09:30)
[2020-05-27] MEDS ORDERED: buPROPion SR 150 MG TABCR PO SCH (09:30)
[2020-05-27 12:09] LABS: Basophils # (auto) 0.01 K/uL (0-0.2); Basophils % (auto) 0.1 %; Eosinophils # (auto) 0.01 K/uL (0-0.5); Eosinophils % (auto) 0.1 %; Hematocrit (blood only) 46.1 % (37-47); Hemoglobin 15.8 g/dL (12.0-16.0); Immature Granulocytes # (auto) 0.04 K/uL (0.00-0.02); Immature Granulocytes % (auto) 0.5 %; Lymphocytes # (auto) 1.02 K/uL (1.2-3.4); Lymphocytes % (auto) 12.4 %; Mean Corpuscular Hemoglobin 31.2 pg (25-34); Mean Corpuscular Hgb Conc 34.3 g/dL (32-36); Mean Corpuscular Volume 90.9 fL (80-100); Mean Platelet Volume 9.5 fL (7.4-10.4); Monocytes % (auto) 2.4 %; Neutrophils # (auto) 6.94 K/uL (1.4-6.5); Neutrophils % (auto) 84.5 %; Platelet Count 249 K/uL (130-400); RDW Coefficient of Variation 12.7 % (11.5-14.5); RDW Standard Deviation 42.1 fL (36.4-46.3); Red Blood Count 5.07 M/uL (4.2-5.4); White Blood Count 8.22 K/uL (4.8-10.8)
[2020-05-27 12:44] LABS: BUN Creatinine Ratio 10.6 (10-20); Creatinine Clr Calc Pharmacy 43.2 ml/min; Est GFR (African American) 53.9; Est GFR (Non-African American) 46.5; Potassium 4.1 mmol/L (3.5-5.1)
[2020-05-27 12:49] LABS: Albumin Globulin Ratio 1.1 (0.9-2); Bilirubin,Total 0.6 mg/dl (0.2-1); Ferritin 255.7 ng/ml (8-388); Globulin 3.7 gm/dl (2.5-4.0); Total Protein 7.7 gm/dl (6.4-8.2)
[2020-05-27] MEDS: ARIPIprazole 1 MG/ML ORAL SOLN 150 ML BTL PO SCH ×2 (12:57→14:05)
[2020-05-27] MEDS ORDERED: FLUCONAZOLE 200 MG/100 ML BAG IV ONE (13:00)
--- NOTE | 2020-05-27 13:28 | Gastroenterology Progress Note ---
Date of Service May 27, 2020 Assessment & Plan (1) COVID-19: (2) Acute epigastric pain: (3) Odynophagia: Recommend Pantoprazole 40 mg by mouth twice daily Recommend Carafate 1 g by mouth QID AC and HS x 10 days Recommend Fluconazole 200 mg by mouth daily for 20 days. Schedule followup in our office in 3-4 weeks. Consider outpatient EGD if symptoms persist. No alarm symptoms, H/H Stable, and COVID +, therefore absolutely no reason to perform EGD at this time. Admission and Anticipated Discharge Date Admission Date: May 25, 2020 Subjective She continues to have epigastric pain, rated 4/10 in intensity, non-radiating without alleviating factors. She has new complaint of odynophagia today. She denies dysphagia, hematemesis, melena, hematochezia, nausea, vomiting, or other complaints. She states that she is tolerating clear liquids, "Okay, but it hurts after eating." She has no further complaints. Review of Systems Review of Systems: All systems reviewed & are unremarkable except as noted in Subjective Physical Exam Constitutional: well developed; no acute distress Respiratory: normal respiratory effort; no respiratory distress and no labored breathing Psychiatric: A+Ox3, euthymic affect Results & Data Results & Data ([facility]) Vital Signs (Past 12 Hours) Vital Signs Temp Pulse Resp BP BP Pulse Ox 05/27/20 11:22 36.5 C 91 H 20 121/82 95 05/27/20 08:06 36.6 C 68 18 147/91 H 94 05/27/20 04:00 36.6 C 67 18 155/88 H 94 PG Care Time/CCT Total # of Minutes Spent Total Time Spent with Patient: Total time spent is greater than 50% in coordination of care (as documented) at patient's floor/unit and/or counseling patient: Coding Level of Care Code 58884 Subseq Hosp Care Lvl 3 Diagnoses COVID-19 U07.1 Acute epigastric pain R10.13 Odynophagia R13.10
[2020-05-27] MEDS ORDERED: GABAPENTIN 600 MG TAB PO SCH (14:00)
[2020-05-27] MEDS ORDERED: ATORVASTATIN 20 MG TAB PO SCH (21:00)
[2020-05-28] MEDS ORDERED: FLUCONAZOLE 100 MG TAB PO SCH (12:00)
--- NOTE | 2020-06-01 11:30 | Discharge Summary ---
Date of Service May 27, 2020 Admission HPI Per Admitting Provider Patient is a 60-year-old female the past medical history including multiple sclerosis, JIGNESH, sicca, interstitial lung disease, tremor, nocturnal hypoxemia, TIA, pseudoseizure, seizure, pneumonia and C. difficile colitis. She was diagnosed with COVID-19 infection on 05/21/2020 at this emergency department. With symptoms primarily of fatigue and some mild worsening shortness of breath. She reports that she takes Tylenol on a regular basis, but does not take any NSAIDs or aspirin. She reports having been on prednisone for 3 weeks interstitial lung disease earlier in the year. She does take omeprazole on a daily basis. In the emergency department, pulse ox was 93% on room air. Studies included an ultrasound of the gallbladder which showed diffuse fatty liver with a slightly enlarged at 18 cm the study was negative for gallstones, pericholecystic fluid or gallbladder wall thickening. There was a normal, bile duct at [address] scan of the abdomen the pelvis showed mild basilar atelectasis or scarring. Fatty liver. No calcified gallstones. Left hemicolectomy with distal colon anastomosis as before. No evidence of any acute intra-abdominal process. Principal Diagnosis COVID-19 Discharge Exam The patient is awake, alert and oriented 3, well developed and well nourished, normocephalic and atraumatic, lying in bed and in no acute distress. HEENT--PERRL, EOMI, mucous membranes and oropharynx dry. Neck--supple. No JVD. No bruits. Thyroid normal, trachea midline, no adenopathy. Heart--normal S1 and S2. No murmurs, rubs or gallops. Lungs--clear bilaterally, no respiratory distress, no accessory muscle use. Pain on palpation in right lower chest. Abdomen--normal bowel sounds and soft. Nondistended. Nontender Extremities--no cyanosis or clubbing. No edema. Dermatologic--normal skin turgor, normal color, no abnormal lymph nodes, no rash. Neurologic--cranial nerves II through XII grossly intact. Rheumatologic--normal range of motion. Psychiatric--normal affect. Discharge Data Allergies Allergy/AdvReac Type Severity Reaction Status Date / Time azithromycin Allergy Severe Swelling Verified 05/24/20 02:45 of Lip/Tongue/Throat fish oil Allergy Severe tongue Verified 05/24/20 02:45 swells and trouble breathing ciprofloxacin Allergy Intermediate itchy Verified 05/24/20 02:45 clindamycin Allergy Intermediate HIVES Verified 05/24/20 02:45 meloxicam Allergy Intermediate rash Verified 05/24/20 02:45 metoclopramide Allergy Intermediate itchy Verified 05/24/20 02:45 morphine Allergy Intermediate LOCAL Verified 05/24/20 02:45 REACTION TO IV PUSH pregabalin Allergy Intermediate rash Verified 05/24/20 02:45 Quinolones Allergy Intermediate HIVES Verified 05/24/20 02:45 vancomycin Allergy Intermediate RASH Verified 05/24/20 02:45 cefaclor Allergy Mild RASH, HAS Verified 05/24/20 02:45 TOLERATED AUGMENTIN W/O RXN tetracycline Allergy Mild Unknown Verified 05/24/20 02:45 carbamazepine Allergy Unknown Unknown Verified 05/24/20 02:45 cevimeline Allergy Unknown anxious Verified 05/24/20 02:45 doxycycline AdvReac Intermediate sores on Verified 05/24/20 02:45 tongue fexofenadine AdvReac Intermediate itchy Verified 05/24/20 02:45 influenza virus vaccine AdvReac Intermediate excerbation Verified 05/24/20 02:45 trivalent of multiple sclerosis phenytoin AdvReac Mild dizzy Verified 05/24/20 02:45 Consultations 05/24/20 05:11 ED Decision to Admit Stat 05/24/20 11:35 Consult Gastroenterology Routine Ordered Studies 05/24/20 01:49 US gallbladder Urgent 05/24/20 03:45 CT abd pelvis IV con only Urgent Hospital Course (1) COVID-19: COVID-19 virus infection with hypoxia/history of prednisone use within the past year for ILD- Place on Decadron 6 mg IV daily for treatment of hypoxia and for stress dosing for adrenal insufficiency Added sucralfate (2) Acute epigastric pain: Acute epigastric pain/GERD- Pain improved. will empirically treat with PPI and diflucan for possible candidiasis Examination is most consistent with severe gastritis and/or gastric ulcer. will also dc on carafate, PPI Treated inhouse with IV PPI and famotidine (3) JIGNESH (obstructive sleep apnea): CPAP at bedtime as needed (4) MS (multiple sclerosis): Multiple sclerosis/seizure-like activity/anxiety- will resume all usual medications if tolerating clear diet. (5) Asthma: Ventolin HFA 2 puffs 4 times daily as needed (6) Anxiety: See above Total Time Total Time Spent Total Time Spent (In Minutes): 32 Total Time Includes: Examination of the Patient, Discharge Planning and Medication Reconciliation Discharge Plan Discharge Items Patient Disposition: Home - Self-Care Reason For Visit: SEVERE EPIGASTRIC PAIN Discharge Diagnosis: severe epigastric pain Activity: Resume your previous activity Non-emergency contact: Primary Care Provider Call non-emergency contact if: you have any medication questions Follow-up/Referrals: Izaiah Laughlin Jr, [Primary Care Provider] - 06/03/20 9:45 am (Your appointment is a tele appointment. Dr Laughlin will call you at that time. If you need to change this appointment, please call [phone].) Diet: Clear liquid Diet Comment: advance as tolerated Addtl Attending Provider Instructions: You have been hospitalized for an acute medical problem. During your stay at [facility], we have made an effort to correct the problem that brought you to the hospital while keeping you as comfortable as possible. Medications were used to bring your condition under control and your discharge instructions will include directions for any medications you should take after leaving the hospital. Please make sure you see your Primary Care Provider as part of your follow up plan. Recommend Pantoprazole 40 mg by mouth twice daily Recommend Carafate 1 g by mouth QID AC and HS x 10 days Recommend Fluconazole 200 mg by mouth daily for 20 days. Schedule followup in the office of Dr. Pierce in 3-4 weeks. Consider outpatient EGD if symptoms persist. Pending Studies at Discharge: No Stand-Alone Forms: My [facility], Smoking Cessation Medications and DC Order Prescriptions: New fluconazole 100 mg Tablet 200 mg PO Q24H Qty: 20 RF: 0 pantoprazole 40 mg tablet,delayed release (DR/EC) 40 mg PO BID Qty: 60 RF: 0 sucralfate 100 mg/mL Suspension 1 g PO QID 10 Days Qty: 400 RF: 0 dexamethasone [Decadron] 6 mg tablet 6 mg PO DAILY Qty: 6 RF: 0 Continued Symbicort 80-4.5 mcg/actuation HFA aerosol inhaler 2 puff INHALATION BID Qty: 3 RF: 1 levalbuterol tartrate [Xopenex HFA] 45 mcg/actuation HFA aerosol inhaler 2 inh INHALATION BID PRN (Reason: Shortness Of Breath Or Wheezing) Qty: 3 RF: 1 levothyroxine 75 mcg capsule 75 mcg PO QAM RF: 0 meclizine 25 mg tablet 25 mg PO BID PRN (Reason: dizziness) Qty: 30 RF: 1 multivitamin Tablet 1 tab PO DAILY RF: 0 bupropion HCl 150 mg tablet sustained-release 12 hr 150 mg PO BID RF: 0 ascorbic acid (vitamin C) [Vitamin C] 1,000 mg Tablet 1,000 mg PO DAILY RF: 0 atorvastatin 20 mg Tablet 20 mg PO HS RF: 0 cetirizine [Zyrtec] 10 mg Tablet 10 mg PO QAM RF: 0 sertraline [Zoloft] 100 mg Tablet 200 mg PO QAM RF: 0 calcium carbonate [Calcium 600] 600 mg calcium (1,500 mg) Tablet 1,200 mg PO DAILY RF: 0 montelukast [Singulair] 10 mg Tablet 10 mg PO QAM RF: 0 aripiprazole [Abilify] 2 mg Tablet 2 mg PO QAM RF: 0 Vitamin D3 4,000 unit Capsule 4,000 unit PO DAILY RF: 0 lorazepam 1 mg tablet 1 mg PO TID PRN (Reason: Anxiety) RF: 0 gabapentin 600 mg tablet 600 mg PO TID RF: 0 melatonin 5 mg Tablet 5 mg PO HS PRN (Reason: Sleep) RF: 0 hydrocodone-homatropine 5-1.5 mg/5 mL syrup 5 ml PO Q4 PRN (Reason: Cough) RF: 0 Discontinued omeprazole 40 mg capsule,delayed release(DR/EC) 40 mg PO QAM RF: 0 No Action (DME) Oxygen Home Liters Per Minute See Rx Instructions .ROUTE .MEDSUPPLY Qty: 1 RF: 0 (DME) Oxygen Home Liters Per Minute See Rx Instructions .ROUTE .MEDSUPPLY Qty: 1 RF: 0 (DME) Auto Titrating CPAP Misc See Rx Instructions .ROUTE .MEDSUPPLY Qty: 1 RF: 0 Oxygen Home Liters Per Minute 1 ea .Route DAILY Qty: 1 RF: 0 Discharge Orders: Discharge Order (Routine); Ordered 05/27/20 Ordered By: Kal Silvestre Admission Data Admit Date/Time: 05/25/20 22:24 Attending Provider: Kal Silvestre Admit Provider: Zia Raman Primary Care Provider: Izaiah Laughlin Jr Other Providers: Zia Raman ; Zelalem Pierce Other Interventions: Discharge Summary Assessment (RN) Last Done: 05/27/20 16:56 Coding Level of Care Code D/C Day Management >30 mins Diagnoses COVID-19 U07.1 Acute epigastric pain R10.13 JIGNESH (obstructive sleep apnea) G47.33 MS (multiple sclerosis) G35 Asthma J45.909 Anxiety F41.9 Time Spent (min) 32
== END 2020-05-27 19:44 | disposition home or self-care (01) | DRG 178 ==
LOC: ED 00:51 → EDINP 00:51 → SUATTDRO 05:58 → 2N 17:36 → SUATTDRO 05-25 22:24

== ENCOUNTER 2023-04-26 08:31 | Observation (INO) ==
--- NOTE | 2023-04-06 16:22 | PAT Medication Instructions ---
Medication Instructions Date of Service April 06, 2023 Home Medications Medication Instructions Recorded famotidine 40 mg tablet (Pepcid) 40 mg PO QAM #90 tabs 05/05/22 gabapentin 600 mg tablet 600 mg PO BID #180 tabs 05/05/22 pantoprazole 40 mg tablet,delayed 40 mg PO QAM #90 tabs 05/05/22 release levothyroxine 88 mcg tablet 88 mcg PO QAM #90 tabs 10/13/22 atorvastatin 20 mg tablet 20 mg PO HS #90 tabs 02/01/23 amlodipine 5 mg tablet 5 mg PO QAM #90 tabs 02/08/23 dicyclomine 10 mg capsule 10 mg PO QID PRN stomach pain #360 02/09/23 caps aripiprazole 2 mg tablet (Abilify) 2 mg PO QAM #90 tabs 03/31/23 bupropion HCl 150 mg tablet,12 hr 150 mg PO QAM #90 ea 03/31/23 sustained-release lorazepam 1 mg tablet 1 mg PO TID PRN Anxiety #90 tabs 03/31/23 ascorbic acid (vitamin C) 1,000 mg tablet (Vitamin C) 1,000 mg PO QAM calcium carbonate 600 mg calcium (1,500 mg) tablet (Calcium) 600 mg PO BID multivitamin 1 tab PO QAM cyanocobalamin (vitamin B-12) 1,000 mcg tablet 1,000 mcg PO QAM cholecalciferol (vitamin D3) 50 mcg (2,000 unit) capsule (Vitamin D3) 4,000 unit PO QAM melatonin 5 mg tablet 10 mg PO HS famotidine 40 mg tablet (Pepcid) 40 mg PO QAM gabapentin 600 mg tablet 600 mg PO BID #180 tabs pantoprazole 40 mg tablet,delayed release 40 mg PO QAM levothyroxine 88 mcg tablet 88 mcg PO QAM atorvastatin 20 mg tablet 20 mg PO HS amlodipine 5 mg tablet 5 mg PO QAM dicyclomine 10 mg capsule 10 mg PO QID PRN stomach pain conjugated estrogens 0.625 mg/gram vaginal cream (Premarin) 0.625 mg vaginal 2XWK fluoxetine 20 mg tablet 20 mg PO QAM aripiprazole 2 mg tablet (Abilify) 2 mg PO QAM bupropion HCl 150 mg tablet,12 hr sustained-release 150 mg PO QAM lorazepam 1 mg tablet 1 mg PO TID PRN Anxiety ASK your prescriber and surgeon conjugated estrogens 0.625 mg/gram vaginal cream (Premarin) 0.625 mg vaginal 2XWK aripiprazole 2 mg tablet (Abilify) 2 mg PO QAM DO NOT take the morning of surgery ascorbic acid (vitamin C) 1,000 mg tablet (Vitamin C) 1,000 mg PO QAM calcium carbonate 600 mg calcium (1,500 mg) tablet (Calcium) 600 mg PO BID multivitamin 1 tab PO QAM cyanocobalamin (vitamin B-12) 1,000 mcg tablet 1,000 mcg PO QAM cholecalciferol (vitamin D3) 50 mcg (2,000 unit) capsule (Vitamin D3) 4,000 unit PO QAM dicyclomine 10 mg capsule 10 mg PO QID PRN stomach pain Take morning of surgery With a small sip of water, OTHERWISE NOTHING TO EAT OR DRINK AFTER MIDNIGHT: famotidine 40 mg tablet (Pepcid) 40 mg PO QAM gabapentin 600 mg tablet 600 mg PO BID pantoprazole 40 mg tablet,delayed release 40 mg PO QAM levothyroxine 88 mcg tablet 88 mcg PO QAM amlodipine 5 mg tablet 5 mg PO QAM fluoxetine 20 mg tablet 20 mg PO QAM bupropion HCl 150 mg tablet,12 hr sustained-release 150 mg PO QAM lorazepam 1 mg tablet 1 mg PO TID PRN Anxiety (if needed) Take evening before surgery calcium carbonate 600 mg calcium (1,500 mg) tablet (Calcium) 600 mg PO BID melatonin 5 mg tablet 10 mg PO HS gabapentin 600 mg tablet 600 mg PO BID atorvastatin 20 mg tablet 20 mg PO HS dicyclomine 10 mg capsule 10 mg PO QID PRN stomach pain (if needed) lorazepam 1 mg tablet 1 mg PO TID PRN Anxiety (if needed) Other Notes If you have any questions please call us at [phone] or [phone] or [phone] or [phone]
--- NOTE | 2023-04-11 14:20 | Anesthesiology Consultation ---
Date of Service April 11, 2023 Assessment & Plan (1) Encounter for pre-operative examination: - Infectious disease screening: Per assessment on 04/11/23: No known infectious disease contacts or current infectious disease symptoms. No noted Covid positive test result in past 90 days. - Outpatient joint assessment: Pt currently scheduled for inpatient pathway. If surgeon requests review for outpatient joint pathway, patient is not recommended candidate for outpatient joint program from anesthesia standpoint based upon available information. - S/P Lap alaina (03/21/23): Grade 2 view, MAC#3, ETT 7.5 at [facility]. No issues noted per post-op anesthesia progress note. - PCP visit (03/31/23): "This patient has NO active cardiac conditions that require urgent management prior to any surgical procedure. Based on RCRI assessment, the patient has a 0.4% risk of cardiac , nonfatal [place] or nonfatal cardiac arrest.. Patient is a low risk patient for a low/intermediate risk procedure.. Penelope is medically optimized and at an acceptable risk to proceed with the planned surgical procedure without further cardiac workup." Multiple sclerosis Chart Review Chart Review: Acceptable Risk for Surgery and Patient seen in Pre Admission Testing Teaching & Discussion Pre-Anesthesia Teaching/Discussion Notes: Instructed NPO after midnight before surgery,except medications with 15 cc of water. Medication instructions provided according to the PAT guidelines. History Surgery Operation Date: 04/26/23 10:10 Proposed Procedures p Right Total Knee Arthroplasty - Prem Francois MD Height/Weight Height: 5 ft 1.5 in Weight: 72.6 kg Allergies Allergy/AdvReac Type Severity Reaction Status Date / Time azithromycin Allergy Severe Swelling Verified 03/31/23 14:10 of Lip/Tongue/Throat fish oil Allergy Severe Tongue Verified 04/11/23 14:55 swells, trouble breathing cevimeline Allergy Intermediate Anxious Verified 04/11/23 14:55 ciprofloxacin Allergy Intermediate Itchy Verified 04/11/23 14:55 clindamycin Allergy Intermediate Hives Verified 04/11/23 14:55 meloxicam Allergy Intermediate Rash Verified 04/11/23 14:55 metoclopramide Allergy Intermediate Itchy Verified 04/11/23 14:55 morphine Allergy Intermediate Local Verified 04/11/23 14:55 reaction to IV push pregabalin Allergy Intermediate Rash Verified 04/11/23 14:55 Quinolones Allergy Intermediate Hives Verified 04/11/23 14:55 cefaclor Allergy Mild Rash Verified 04/11/23 14:55 tetracycline Allergy Mild Rash Verified 03/31/23 14:10 vancomycin Allergy Mild Rash Verified 04/11/23 14:55 carbamazepine Allergy Unknown Unknown Verified 03/31/23 14:10 doxycycline AdvReac Intermediate sores on Verified 03/31/23 14:10 tongue fexofenadine AdvReac Intermediate itchy Verified 03/31/23 14:10 influenza virus vaccine AdvReac Intermediate excerbation Verified 03/31/23 14:10 trivalent of multiple sclerosis phenytoin AdvReac Mild dizzy Verified 03/31/23 14:10 Medications Home Medications Medication Instructions Recorded Confirmed Last Taken ascorbic acid (vitamin C) 1,000 mg 1,000 mg PO QAM 04/21/18 03/21/23 03/20/23 08:00 tablet (Vitamin C) calcium carbonate 600 mg calcium 600 mg PO BID 04/21/18 03/21/23 03/20/23 21:00 (1,500 mg) tablet (Calcium) multivitamin 1 tab PO QAM 04/21/18 03/21/23 03/20/23 08:00 cyanocobalamin (vitamin B-12) 1,000 mcg PO QAM 09/09/20 03/21/23 03/20/23 08:00 1,000 mcg tablet cholecalciferol (vitamin D3) 50 4,000 unit PO QAM 08/31/21 03/21/23 03/20/23 08:00 mcg (2,000 unit) capsule (Vitamin D3) melatonin 5 mg tablet 10 mg PO HS 04/26/22 03/21/23 03/20/23 21:00 famotidine 40 mg tablet (Pepcid) 40 mg PO QAM #90 tabs 05/05/22 03/21/23 03/21/23 06:00 gabapentin 600 mg tablet 600 mg PO BID #180 tabs 05/05/22 03/21/23 03/21/23 06:00 pantoprazole 40 mg tablet,delayed 40 mg PO QAM #90 tabs 05/05/22 03/21/23 03/21/23 06:00 release levothyroxine 88 mcg tablet 88 mcg PO QAM #90 tabs 10/13/22 03/21/23 03/21/23 06:00 Oxygen Home 01/19/23 02/01/23 Unknown atorvastatin 20 mg tablet 20 mg PO HS #90 tabs 02/01/23 03/21/23 03/20/23 21:00 amlodipine 5 mg tablet 5 mg PO QAM #90 tabs 02/08/23 03/21/23 03/21/23 06:00 dicyclomine 10 mg capsule 10 mg PO QID PRN stomach pain #360 02/09/23 03/21/23 03/20/23 21:00 caps conjugated estrogens 0.625 mg/gram 0.625 mg vaginal 2XWK 03/14/23 03/21/23 Unknown vaginal cream (Premarin) fluoxetine 20 mg tablet 20 mg PO QAM 03/14/23 03/21/23 03/21/23 06:00 aripiprazole 2 mg tablet (Abilify) 2 mg PO QAM #90 tabs 03/31/23 03/31/23 Unknown bupropion HCl 150 mg tablet,12 hr 150 mg PO QAM #90 ea 03/31/23 03/31/23 Unknown sustained-release lorazepam 1 mg tablet 1 mg PO TID PRN Anxiety #90 tabs 03/31/23 03/31/23 Unknown Past Medical History Medical History Anxiety and depression Diverticular disease Gastroparesis GERD (gastroesophageal reflux disease) History of COVID-19 04/2020, hospitalized at [facility] > resolved History of IBS IBS-c/d Hx of Clostridium difficile infection 2014, no current issues Hyperlipidemia Hypothyroidism MS (multiple sclerosis) Stable, no recent flares Nocturnal hypoxemia Previously on 2L HS, d/c by [place] pul recently d/t updated overnight oximetry testing results Osteoarthritis Osteopenia Primary hypertension Pseudoseizure No recent issues, most recent event 2020 (felt r/t MS attack), neuro workup unremarkable Restrictive lung disease Tremor Left hand Vulvar atrophy Exercise / Class Metabolic Activity II 4-5 Yardwork/Stairs/Walk up hill Past Family History Family History Father Myocardial infarction Cancer Hypertension Prostate cancer Melanoma Mother Cancer Sister Cancer Hypertension Brother Cancer Hypertension Melanoma Polymyositis Family/Other Breast cancer Other No family history of adverse response to anesthesia Denies family history of Ovarian cancer Colorectal cancer Past Surgical History Surgical History History of arthroscopy Right knee x2 History of bowel resection partial colectomy with anastamosis 07/29 DIVERTICULITIS History of bronchoscopy History of carpal tunnel release R/L History of colonoscopy History of dilatation and curettage History of esophagogastroduodenoscopy (EGD) History of lung biopsy R lung wedge resection 12/2019 History of repair of rotator cuff right History of tooth extraction [place] teeth extracted Past Anesthesia History No Hx of Anesthesia Complications and No Family Hx of Anesthesia Complications History of PONV No Hx of PONV and Hx of Motion Sickness (Situational) Social History Smoking Status: Never smoker Do You Dip or Chew Tobacco: No Hx Alcohol Use: Yes Alcohol type: wine alcohol intake frequency: holidays/special occasions only substance use type: does not use Review of Systems Patient denies chest pain, shortness of breath, dyspnea on exertion, fever, chills, cough, wheezing, palpitations. Physical Exam Vital Signs VITALS BP 122/81 P 88 TEMP 98.7 SP02 98.7 RESP 18 PHYSICAL Full cervical extension range of motion. Full TMJ range of motion. TMD 3 finger breaths Mallampati Score 2 Dentition: intact, right upper side implant Lungs: clear throughout to auscultation Cardiac: regular rate and rhythm, no murmurs noted Spine: normal Carotid arteries: negative bruit Extremities: no LE edema Lab Results Anesthesia Preop Results Results Anesthesia Widget: WBC 7.11 K/ul (4.8-10.8) 04/11/23 Hgb 14.9 g/dl (12.0-16.0) 04/11/23 Hct 42.9 % (37.0-47.0) 04/11/23 Plt 258 K/uL (130-400) 04/11/23 Na 140 mmol/L (136-145) 03/21/23 K 4.3 mmol/L (3.5-5.1) 03/21/23 Cl 105 mmol/L (98-107) 03/21/23 CO2 28 mmol/L (21-32) 03/21/23 BUN 18 mg/dl (6-23) 03/21/23 Creat 1.04 mg/dl (0.6-1.2) 03/21/23 Glucose Level 104 mg/dl (70-99(Fasting)) H 03/21/23 PT 10.7 Seconds (9.0-12.0) 04/11/23 PTT 27.0 Seconds (21.0-31.0) 04/11/23 INR 1.0 (0.9-1.1) 04/11/23 Blood Type O Positive 04/11/23 Antibody Screen NEGATIVE 04/11/23 Testing Electrocardiogram Date: 01/13/23 Findings: + NSR @ (76bpm) low voltage QRS. Poor R wave progression. No significant change from 01/07/2020. Chest X-Ray Date: 01/13/23 Findings: + NAD There is mild bibasilar scarring/atelectasis. Echocardiogram Date: 10/20/20 EF: >70% RWMA: + none Valvular Disease: + no significant valvular disease LV size, wall motion, and systolic function are normal. Mild cLVH. Gr I DD. Stress Test Date: 10/12/18 Type: exercise Normal exercise ECHO without evidence of inducible ischemia. Other Testing PFT Date: 10/28/2020 Mild restrictive lung disease with normal DLCO, no obstruction, insignificant bronchodilator response FVC 2.92 L 105%, FEV1 2.47 L 7010%, FEV1/FVC 84%, RV 26%, TLC 75%, RV/TLC 35%, DLCO 79%
[~2023-04-26 08:31] MED LIST changes: +ACETAMINOPHEN 500 MG TAB PO SCH; +ALLERGY Noted to ORDERED Medication SCH; -ASCO500T16 PO; -ATOR-22 PO; -ATV/1 PO; +BUPIVACAINE 0.25% PF 30 ML VIAL ONE; +BUPIVACAINE 0.5 % 5 MG/1 ML PF 10ML VIAL ONE; -BUPR150T47 PO; -CALCTAB5 PO; -CETI10TA84 PO; -CHOL2000 PO; -CPXI SQ; -CYCL0.052 OPB; +LR 60ML/HR IV SCH; +METOCLOPRAMIDE HCL 10 MG TABLET PO SCH; -MULT-506 PO; -NRN600 PO; -RANI300T PO; +ROPIVACAINE 0.5% HCL/PF 150 MG, BUPIVACAINE 0.75% MPF 20 ML, EPINEPHrine 0.15 MG, Ketor... INFIL SCH; -SNG10 PO; +TRANEXAMIC ACID 1,000 MG **IV Pre-op IV SCH; +VANCOMYCIN HCL 1,000 MG in SODIUM CHLORIDE 0.9% 500 ML IV SCH; -ZLF/100 PO; +cloNIDine HCL 0.1 MG/24 HR TRANSDERM SYS TD SCH; +dexAMETHasone 4 MG TAB PO SCH; +diphenhydrAMINE 50 MG/ML VIAL IV ONE; +traMADol HCL 50 MG TABLET PO SCH
[2023-04-26] MEDS ORDERED: diphenhydrAMINE 50 MG/ML VIAL ONE (08:51)
[2023-04-26] MEDS ORDERED: MIDAZOLAM HCL 1 MG/ML 2ML VIAL ONE (09:21)
[2023-04-26] MEDS ORDERED: fentaNYL citrate PF 100 MCG/2 ML VIAL ONE (09:21)
--- NOTE | 2023-04-26 09:56 | History & Physical Bridge Note ---
Date of Service April 26, 2023 History & Physical Bridge Note I have examined the patient, reviewed the History & Physical and in the interval since the performance of the History & Physical I have noted the following changes of clinical significance: no changes noted
[2023-04-26] MEDS ORDERED: ORTHO JOINT ANESTHETIC ONE (10:16)
[2023-04-26] MEDS ORDERED: VANCOMYCIN HCL 1000MG/20ML VIAL ONE (10:16)
[2023-04-26] MEDS ORDERED: ONDANSETRON INJ 2 MG/ML 2 ML VIAL IV PRN ×2 (10:20→15:21)
[2023-04-26] MEDS ORDERED: ATROPINE SULFATE 0.1 MG/ML 10ML SYR IV PRN (10:20)
[2023-04-26] MEDS ORDERED: ePHEDrine sulfate 50 MG/ML AMP IV PRN (10:20)
[2023-04-26] MEDS ORDERED: HYDROmorphone INJ 2 MG/ML SYR/VIAL ONE (11:39)
[2023-04-26] MEDS ORDERED: LIDOCAINE 2% 2 ML VIAL/AMP(20MG/ML) INFIL ONE (13:09)
[2023-04-26] MEDS ORDERED: PHENYLEPHRINE 100MCG/ML 5ML SYR ONE (13:09)
[2023-04-26] MEDS ORDERED: PROPOFOL IV EMULSION 10 MG/ML 20 ML VIAL IV ONE (13:09)
--- NOTE | 2023-04-26 13:29 | Operative Report ---
Post Operative Report Pre & Post Diagnosis Operation Date: 04/26/23 10:20 Pre-Op Diagnosis: Right Knee Osteoarthritis Post-Op Diagnosis: Right Knee Osteoarthritis I identified the patient and participated in the time-out.: Yes Procedure Operation Date: 04/26/23 10:20 Actual Procedures p Right Total Knee Arthroplasty(Right) - Prem Francois MD Surgeon Prem Francois M.D. [employer] Jessica Garland PA-C; no fellow or resident available Estimated Blood Loss 5 Findings Consistent with Post-Op Diagnosis Specimens bone and soft tissue Anesthesia Type General Regional Description of Procedure Patient was taken to the operating room and placed under IV sedation with spinal anesthesia and a peripheral nerve block. Timeout was performed. He is given 2 g of IV Ancef for surgical prophylaxis. He was prepped and draped in routine sterile fashion. I was present during the entire case and assisted with positioning, tissue retraction, implantation of hardware, cementing, closure and dressings. Please see Dr. Francois's operative report for further details regarding today's procedure. Patient was awakened and transferred to the recovery room in stable condition. I attest to the content of the Intraoperative Record and any orders documented therein. Any exceptions are noted below.
--- NOTE | 2023-04-26 13:54 | Operative Report ---
Post Operative Report Pre & Post Diagnosis Operation Date: 04/26/23 10:20 Pre-Op Diagnosis: Right Knee Osteoarthritis Post-Op Diagnosis: Right Knee Osteoarthritis I identified the patient and participated in the time-out.: Yes Procedure Operation Date: 04/26/23 10:20 Actual Procedures p Right Total Knee Arthroplasty(Right) - Prem Francois MD Surgeon Prem Francois MD Rn Renal Jessica Garland PA-C; no fellow or resident available Estimated Blood Loss 5 Findings Consistent with Post-Op Diagnosis Specimens Resected bone and soft tissue Anesthesia Type General Regional Complications none Disposition Accompanied Patient To Recovery: No Disposition: Recovery Room Indications Penelope is 63 and has arthritis of her right knee which is refractory to nonsurgical treatment and she wishes to have her knee replaced. Description of Procedure Informed consent. Patient identified. She identified the operative site as the right knee. I marked with my initials. A preoperative surgical timeout was performed. A preop dose of IV antibiotics was given. She was taken to the operating room positioned supine on the OR table. A bump was placed under her r ight calf and a tourniquet on her right thigh. The exam under anesthesia revealed range of motion 0 to 130 degrees of flexion with 1+ MCL laxity at 20 degrees knee flexion otherwise stable. The leg was prepped and draped in the usual sterile fashion DVT prophylaxis intraoperatively with foot pumps. Postop early mobility Eliquis and foot pumps. TXA given Limb exsanguinated with the Esmarch. Tourniquet inflated to 250 mmHg. Midline longitudinal incision was made followed by a medial parapatellar arthrotomy. Medial release was performed off the tibia. Retropatellar fat pad resected. Soft tissue on the anterior aspect of the distal femur was resected. The patella was everted and the knee flexed. There was an area of 1 cm x 2 cm grade 4 change medial femur with an area 1 x 1.5 cm on the tibia of corresponding bipolar grade 4 change. The medial meniscus was deficient. The cruciates were intact. The lateral tibial plateau was intact however the lateral femoral articular surface was centrally 1x2 area of high-grade 3 chondrosis. Marginal osteophytes resected. Cruciate ligaments were resected. The tibia was subluxated. Intramedullary maritime pilot hole was made just in front of the tibial spines in between them. The guide braulio would not advance all the way and I inserted an flexible guidewire and reamed up to size 9 which allowed insertion of the intramedullary alignment braulio. The guide was aligned to the tibial tubercle and pinned in place to resect 8 mm off of the high lateral side corresponding to about 6 mm medially. The knee was held in full extension and the extra medullary alignment braulio confirmed slope and alignment bisecting the ankle joint and intersecting the second ray of the foot. This cut was made and sized to a 1.5 tibia. Design Coordinator hole was drilled into the distal femur followed by insertion of the distal femoral cutting guide set at 5 degrees right knee valgus distal femoral cut of 12 mm thick. This was pinned in the place and the cut was made. The extension gap was a symmetric 10. Epicondylar axis was marked out and the sizing guide was applied. It was in between a 2 and a 2.5. The 2.5 was pinned and the size to anterior down cutting block was applied to half-size it. The cuts were made protecting the collateral ligaments. The external rotation drill holes were made and matched the epicondylar axis. The flexion gap was a symmetric 10. The box cutting guide was applied lateralized and the cut was made and the size 2 femur was applied. The tibia was prepared with the keel and punch with the tray aligned to the tibial tubercle and lateralized as far as possible. Trialing with the 10 mm thick polyethylene revealed full extension uninhibited flexion trace MCL laxity at mid position no LCL laxity. The patella measured 20 mm in thickness and had extensive grade 2 and 3 changes. The guide was set to preserve 14 mm of bone. The cut was made. The paddle was aligned with the knee in slight flexion and it was distal lysed and medialized. Sized to a 32 mm patella. The locals were drilled and the patella tracked fine with no hands technique. Ortho joint mix injected into the back of the knee. Bony surfaces were meticulously prepared with pulsatile lavage and dried. Extra hole drilled into the eburnated lateral patella. Patellar thickness was 13-1/2 mm. Smears of cement were placed on the posterior condyles. Ortho joint mix injected. 2 bags of Simplex P cement were mixed in and when in the doughy state the components were cemented into place femur tibia patella and held in full extension until the cemented hardened. Tourniquet let down after 90 minutes of inflation and meticulous hemostasis was performed. The patella tracked fine. The laxity was as mentioned before and the final polyethylene insert was applied. Back the knee was irrigated and the cement was removed as encountered. Soft tissue was kept moist throughout the surgical procedure. Composite patellar thickness was 21 mm. [place] assisted flexion with extensor mechanism closed was 120 degrees. Extensor mechanism closed above the equator the patella with interrupted #2 FiberWire. Below the equator the patella with running and interrupted #1 Vicryl. The skin was closed in layers with 0 and 2-0 Vicryl followed by yarelis on the skin and a dressing of Xeroform 4 x 4's ABD soft wrap Jose wrap and a brace. She was awakened from anesthesia difficulty and taken to the cover room in stable condition resected bone and soft tissue sent for specimen no complications counts correct blood loss 5 cc at the conclusion the operation spoke to patient's family informed of my findings postop instructions given. Meticulous hemostasis with electrocautery. Minimal bleeding. Rehab according to the total knee protocol. She can weight-bear as tolerated. Blood thinner to begin in the morning. Components inserted with a J[employer] PFC Sigma rotating platform knee a 32 mm 3 peg oval dome patella size 2 posterior stabilized right femur with a 10 mm thick size 2 polyethylene tray and 1.5 mobile-bearing keeled tibia. I attest to the content of the Intraoperative Record and any orders documented therein. Any exceptions are noted below.
[2023-04-26] MEDS: fentaNYL citrate PF 100 MCG/2 ML VIAL IV PRN ×4 (14:17→14:32)
--- NOTE | 2023-04-26 15:10 | Anesthesiology Progress Note ---
Date of Service April 26, 2023 Anesthesia Post Procedure Vital Signs Vital Signs: Temp Pulse Pulse Resp BP Pulse Ox O2 Del Method 04/26/23 14:50 85 12 124/92 95 Nasal Cannula 04/26/23 14:40 36.4 C L 76 13 116/66 99 Nasal Cannula 04/26/23 14:30 82 12 134/87 93 Nasal Cannula 04/26/23 14:20 79 12 128/83 95 Oxymask 04/26/23 14:10 82 13 151/87 H 95 Oxymask 04/26/23 14:00 88 10 L 135/84 94 Oxymask 04/26/23 13:50 80 10 L 105/82 91 Oxymask 04/26/23 13:40 85 9 L 130/79 91 Oxymask 04/26/23 13:30 84 15 124/79 90 Oxymask 04/26/23 13:24 36.0 C L 84 14 135/75 93 Oxymask 04/26/23 08:54 36.7 C 84 20 138/78 96 Room Air O2 Flow Rate 04/26/23 14:50 3 04/26/23 14:40 3 04/26/23 14:30 3 04/26/23 14:20 6 04/26/23 14:10 9 04/26/23 14:00 10 04/26/23 13:50 15 04/26/23 13:40 15 04/26/23 13:30 15 04/26/23 13:24 15 04/26/23 08:54 Pain Intensity Right Knee: Pain Intensity: 3 Transfer of Care Handoff Completed per policy Notes Mental Status: alert / awake / arousable and participated in evaluation Patient Amnestic to Procedure: Yes Nausea / Vomiting: adequately controlled Pain: adequately controlled Airway Patency, RR, SpO2: stable & adequate BP & HR: stable & adequate Hydration State: stable & adequate Anesthetic Complications: no major complications apparent
[2023-04-26] MEDS ORDERED: VANCOMYCIN CONSULT ACTIVE PRN (15:21)
[2023-04-26] MEDS ORDERED: traMADol HCL 50 MG TABLET PO PRN (15:21)
[2023-04-26] MEDS ORDERED: LORazepam 1 MG TAB PO PRN (15:21)
[2023-04-26] MEDS ORDERED: hydrALAZINE HCL 20 MG/ML VIAL IV PRN (15:21)
[2023-04-26] MEDS ORDERED: HYDROmorphone INJ 0.5 MG/0.5 ML SYR IV PRN (15:21)
[2023-04-26] MEDS ORDERED: bisacodyL 10 MG SUPP PR PRN (15:21)
[2023-04-26] MEDS ORDERED: MAGNESIUM HYDROXIDE SUSP 30 ML UDC PO PRN (15:21)
[2023-04-26] MEDS ORDERED: DICYCLOMINE HCL 10 MG CAP PO PRN (15:21)
[2023-04-26] MEDS ORDERED: NALOXONE HCL 0.4 MG/1 ML VIAL/CARP IV PRN (15:21)
[2023-04-26] MEDS: CHECK CLONIDINE PATCH PLACEMENT SCH ×2 (15:23→15:24)
[2023-04-26] MEDS: SODIUM CHLORIDE 0.9% 1,000 ML IV SCH (15:42)
--- NOTE | 2023-04-26 16:00 | Orthopedic Progress Note ---
Date of Service April 26, 2023 Assessment & Plan (1) Status post total right knee replacement: Plan: Postop day 0-right total knee arthroplasty by Dr. Francois Patient may be out of bed, weight-bear as tolerated on left lower extremity with the assistance of a walker and knee immobilizer on left leg when out of bed. Eliquis to start in the morning for DVT prophylaxis. NORMA stockings and AV impulse boots. Pain medication as prescribed. Regular diet. Home medications have been continued. PT/OT to start tomorrow. May do some bedside exercises taught by nursing overnight. Ice as needed for pain and swelling. Elevation as needed for swelling. Postoperative x-rays were reviewed with patient. All questions were answered. Dr. Francois present for today's visit. Plan for discharge to his home tomorrow with home health if doing well and pain controlled. Admission and Anticipated Discharge Date Admission Date: April 26, 2023 Subjective Doing well. Weight resting in bed. States that she feels very sleepy after anesthesia. Denies any nausea, vomiting, chest pain or shortness of breath. Has not been out of bed. Just getting to the nursing floor from the recovery room. Physical Exam Musculoskeletal: Exam of right leg: Postoperative dressings are clean, dry and intact. Ice pack in place. She has normal strength with plantarflexion and dorsiflexion. Dorsalis pedis pulse was nonpalpable with her dressings and AV impulse boots. Posterior tibial pulses 1+. Distal sensation is normal. Results & Data Vital Signs (Past 12 Hours) Vital Signs Temp Pulse Pulse Resp BP BP Pulse Ox 04/26/23 15:41 36.5 C 95 H 16 131/83 97 04/26/23 15:07 36.4 C L 84 14 132/82 97 04/26/23 14:50 85 12 124/92 95 04/26/23 14:40 36.4 C L 76 13 116/66 99 04/26/23 14:30 82 12 134/87 93 04/26/23 14:20 79 12 128/83 95 04/26/23 14:10 82 13 151/87 H 95 04/26/23 14:00 88 10 L 135/84 94 04/26/23 13:50 80 10 L 105/82 91 04/26/23 13:40 85 9 L 130/79 91 04/26/23 13:30 84 15 124/79 90 04/26/23 13:24 36.0 C L 84 14 135/75 93 04/26/23 08:54 36.7 C 84 20 138/78 96 O2 Del Method O2 Flow Rate 04/26/23 15:41 Nasal Cannula 3 04/26/23 15:07 Nasal Cannula 3 04/26/23 14:50 Nasal Cannula 3 04/26/23 14:40 Nasal Cannula 3 04/26/23 14:30 Nasal Cannula 3 04/26/23 14:20 Oxymask 6 04/26/23 14:10 Oxymask 9 04/26/23 14:00 Oxymask 10 04/26/23 13:50 Oxymask 15 04/26/23 13:40 Oxymask 15 04/26/23 13:30 Oxymask 15 04/26/23 13:24 Oxymask 15 04/26/23 08:54 Room Air Diagnostic Findings Postoperative x-ray of right knee shows a stable prosthesis status post total knee arthroplasty. Alignment is acceptable. Reviewed by Dr. Francois. Report is pending.
[2023-04-26] MEDS: ALLERGY Noted to ORDERED Medication SCH ×4 (16:12→16:20)
--- NOTE | 2023-04-26 16:42 | XRay Report ---
XR knee RT 1 or 2V routine CLINICAL HISTORY: Surgical Post Op TECHNIQUE: 2 views of the right knee were obtained. Comparison: Comparison is made to leg length study 04/01/2023 FINDINGS: Patient is status post total knee arthroplasty with expected postsurgical changes including soft tiss ue swelling and subcutaneous emphysema. No periarticular lucency or hardware fracture is seen. IMPRESSION: Expected postoperative appearance status post placement of total knee arthroplasty. ACT 112: Negative or not required by law. Electronically signed by: Keegan Arana M.D. 04/26/2023 4:41 PM
[2023-04-26] MEDS: ACETAMINOPHEN 500 MG TAB PO SCH (16:44)
[2023-04-26] MEDS ORDERED: TRANEXAMIC ACID / 0.7% NACL 1,000 MG/100 ML BAG IV SCH (20:00)
[2023-04-26] MEDS: GABAPENTIN 600 MG TAB PO SCH (20:09)
[2023-04-26] MEDS: CALCIUM CARBONATE 1250MG TAB PO SCH (20:09)
[2023-04-26] MEDS: DOCUSATE SODIUM 100 MG CAP PO SCH (20:10)
[2023-04-26] MEDS ORDERED: MELATONIN 3 MG TAB PO SCH (21:00)
[2023-04-26] MEDS ORDERED: SENNA 8.6 MG TAB PO SCH (21:00)
[2023-04-26] MEDS ORDERED: ATORVASTATIN 20 MG TAB PO SCH (21:00)
[2023-04-26] MEDS ORDERED: diphenhydrAMINE 50 MG/ML VIAL IV ONE (21:00)
[2023-04-26] MEDS ORDERED: VANCOMYCIN HCL 1,000 MG in SODIUM CHLORIDE 0.9% 250 ML IV SCH (22:00)
[2023-04-26] MEDS: oxyCODONE HCL IR 5 MG TAB (IMMEDIATE RELEASE) PO PRN (22:45)
[2023-04-27] MEDS: ACETAMINOPHEN 500 MG TAB PO SCH ×2 (00:04→07:39)
[2023-04-27] MEDS: SODIUM CHLORIDE 0.9% 1,000 ML IV SCH (02:31)
[2023-04-27] MEDS: oxyCODONE HCL IR 5 MG TAB (IMMEDIATE RELEASE) PO PRN ×2 (03:24→08:56)
[2023-04-27] MEDS: HYDROmorphone INJ 1 MG/ML SYRINGE IV PRN ×2 (04:32→04:45)
[2023-04-27] MEDS ORDERED: LEVOTHYROXINE SODIUM 88 MCG TABLET PO SCH (06:30)
[2023-04-27 07:13] LABS: Hematocrit (blood only) 35.4 % (37.0-47.0); Hemoglobin 12.5 g/dl (12.0-16.0); Mean Corpuscular Hemoglobin 31.5 pg (25.0-34.0); Mean Corpuscular Hgb Conc 35.3 g/dL (32.0-36.0); Mean Corpuscular Volume 89.2 fL (80.0-100.0); Mean Platelet Volume 9.6 fL (9.4-12.4); Platelet Count 211 K/uL (130-400); Red Blood Count 3.97 M/uL (4.20-5.40); White Blood Count 14.97 K/ul (4.8-10.8)
[2023-04-27 07:32] LABS: BUN Creatinine Ratio 14.4 (10-20); Calcium 9.1 mg/dl (8.6-10.3); Creatinine Clr Calc Pharmacy 52.3 ml/min; Est GFR (African American) 67.2 ml/min; Est GFR (Non-African American) 57.9 ml/min; Potassium 4.2 mmol/L (3.5-5.1)
[2023-04-27] MEDS ORDERED: dexAMETHasone 4 MG TAB PO SCH (08:00)
[2023-04-27] MEDS: DOCUSATE SODIUM 100 MG CAP PO SCH (08:45)
[2023-04-27] MEDS: CALCIUM CARBONATE 1250MG TAB PO SCH (08:45)
[2023-04-27] MEDS: GABAPENTIN 600 MG TAB PO SCH (08:46)
[2023-04-27] MEDS ORDERED: amLODIPine BESYLATE 5 MG TAB PO SCH (09:00)
[2023-04-27] MEDS ORDERED: FAMOTIDINE 40 MG TABLET PO SCH (09:00)
[2023-04-27] MEDS ORDERED: ASCORBIC ACID 500 MG TAB PO SCH (09:00)
[2023-04-27] MEDS ORDERED: CYANOCOBALAMIN (B-12) 500 MCG TABLET PO SCH (09:00)
[2023-04-27] MEDS ORDERED: APIXABAN 2.5 MG TAB PO SCH (09:00)
[2023-04-27] MEDS ORDERED: MULTIVITAMIN TAB PO SCH ×2 (09:00)
[2023-04-27] MEDS ORDERED: FLUoxetine HCL 20 MG CAP PO SCH (09:00)
[2023-04-27] MEDS ORDERED: PANTOprazole 40 MG TAB PO SCH (09:00)
[2023-04-27] MEDS ORDERED: CHOLECALCIFEROL 1,000 UNITS 25 MCG TAB PO SCH (09:00)
[2023-04-27] MEDS ORDERED: ARIPIprazole 1 MG/ML ORAL SOLN 150 ML BTL PO SCH (09:00)
[2023-04-27] MEDS ORDERED: buPROPion SR 150 MG TABCR PO SCH (09:00)
--- NOTE | 2023-04-27 13:23 | Orthopedic Progress Note ---
Date of Service April 27, 2023 Assessment & Plan (1) Status post total right knee replacement: Plan: Doing well. Labs noted. White count likely elevated secondary to stress and steroids. Home health services are arranged. We talked about follow-up. Discussed bathing elevating wound care. Reviewed pain medication and blood thinner which needs to be authorized. We talked about things to watch out for. She will follow-up with Melanie in 2 weeks and then me a week later. Discharge Admission and Anticipated Discharge Date Admission Date: April 26, 2023 Subjective Pain well controlled. Reports low O2 sats overnight. She was 95% plus on 2 L and I just checked her now and she is 93% on room air. She did well with PT and OT. She would like to go home. Physical Exam Physical Exam: Dressing clean dry and intact. Foot warm with trace DP and 1+ PT pulse. Reports that the toes are numb but has intact sensation to the rest of the foot and leg she has 5 out of 5 ankle and toe plantarflexion dorsiflexion inversion and eversion strength. She is able to do a controlled straight leg raise. Results & Data Vital Signs (Past 12 Hours) Vital Signs Temp Pulse Resp BP BP Pulse Ox Pulse Ox 04/27/23 09:37 94 04/27/23 07:57 04/27/23 07:37 36.7 C 67 16 130/78 96 04/27/23 02:14 36.7 C 76 16 111/67 95 O2 Del Method O2 Flow Rate O2 Flow Rate 04/27/23 09:37 0 04/27/23 07:57 Nasal Cannula 2 04/27/23 07:37 Nasal Cannula 2 04/27/23 02:14 Nasal Cannula 2 Laboratory Results Laboratory Results WBC 14.97 K/ul (4.8-10.8) H 04/27/23 06:46 RBC 3.97 M/uL (4.20-5.40) L 04/27/23 06:46 Hgb 12.5 g/dl (12.0-16.0) 04/27/23 06:46 Hct 35.4 % (37.0-47.0) L 04/27/23 06:46 MCV 89.2 fL (80.0-100.0) 04/27/23 06:46 MCH 31.5 pg (25.0-34.0) 04/27/23 06:46 MCHC 35.3 g/dL (32.0-36.0) 04/27/23 06:46 RDW Std Deviation 39.0 fL (36.4-46.3) 04/27/23 06:46 RDW Coeff of Rocio 12.0 % (11.5-14.5) 04/27/23 06:46 Plt Count 211 K/uL (130-400) 04/27/23 06:46 MPV 9.6 fL (9.4-12.4) 04/27/23 06:46 Sodium 139 mmol/L (136-145) 04/27/23 06:46 Potassium 4.2 mmol/L (3.5-5.1) 04/27/23 06:46 Chloride 108 mmol/L (98-107) H 04/27/23 06:46 Carbon Dioxide 25 mmol/L (21-32) 04/27/23 06:46 Anion Gap 6 (3-11) 04/27/23 06:46 BUN 15 mg/dl (6-23) 04/27/23 06:46 Creatinine 1.04 mg/dl (0.6-1.2) 04/27/23 06:46 Est Cr Clr Drug Dosing 52.3 ml/min 04/27/23 06:46 Est GFR ( Amer) 67.2 ml/min 04/27/23 06:46 Est GFR (Non-Af Amer) 57.9 ml/min 04/27/23 06:46 BUN/Creatinine Ratio 14.4 (10-20) 04/27/23 06:46 Glucose 121 mg/dl (70-99(Fasting)) H 04/27/23 06:46 Calcium 9.1 mg/dl (8.6-10.3) 04/27/23 06:46 Impressions Knee X-Ray 04/26/23 13:35 XR knee RT 1 or 2V routine CLINICAL HISTORY: Surgical Post Op TECHNIQUE: 2 views of the right knee were obtained. Comparison: Comparison is made to leg length study 04/01/2023 FINDINGS: Patient is status post total knee arthroplasty with expected postsurgical changes including soft tissue swelling and subcutaneous emphysema. No periar ticular lucency or hardware fracture is seen. IMPRESSION: Expected postoperative appearance status post placement of total knee arthroplasty. ACT 112: Negative or not required by law. Electronically signed by: Keegan Arana M.D. 04/26/2023 4:41 PM
--- NOTE | 2023-04-28 08:37 | Discharge Summary ---
Date of Service April 28, 2023 Discharge Data Procedures Performed Operation Date: 04/26/23 10:20 Actual Procedures p Right Total Knee Arthroplasty(Right) - Prem Francois MD Hospital Course (1) Status post total right knee replacement: Patient was kept in observation at [facility] after undergoing an elective right total knee arthroplasty by Dr. Francois on April 26, 2023. Surgery was performed with a general anesthetic due to not being able to do a spinal because of her underlying multiple sclerosis. She was given 1 g of IV vancomycin for surgical prophylaxis which was continued for 24 hours after her procedure. This was pretreated with 25 mg IV Benadryl. She tolerated the surgery well without any intraoperative complications. In the recovery room x-rays were obtained of her right knee which showed a stable right knee prosthesis. She was allowed out of bed, weight-bear as tolerated with a knee immobilizer and the assistance of a walker. She was given IV Dilaudid, Tylenol, oxycodone, tramadol, as needed for postoperative pain control. Her home medications were continued. She was given a regular diet and did not develop any postoperative nausea or vomiting. CBC and BMP was performed on postoperative day 1 and her labs were stable. Vital signs remained stable during her inpatient stay. Physical therapy and Occupational Therapy consults were placed. She was seen and evaluated on postoperative day 1 and was safe out of bed. Eliquis 2.5 mg was started on postoperative day 1 for DVT prophylaxis. She also had AV impulse boots and NORMA stockings. The Eliquis will be continued for 2 to 4 weeks after her procedure. She was instructed to ice and elevate. She did exercises as taught by nursing and her therapist at bedside. Case man iris was involved for disposition needs. She had home health arranged preoperatively. On April 27, 2021 she was deemed safe for discharge and was discharged to her home in stable condition with her family and home health arrangements. Discharge instructions were reviewed.
== END 2023-04-27 12:46 | disposition home health service (06) ==
LOC: 3E 08:31 → ASU 08:31

== ENCOUNTER 2024-04-01 04:24 | Observation (INO) ==
[2024-04-01 05:01] LABS: Basophils # (auto) 0.05 K/uL (0.00-0.20); Basophils % (auto) 0.6 %; Eosinophils # (auto) 0.34 K/uL (0.00-0.50); Eosinophils % (auto) 3.9 %; Hematocrit (blood only) 44.4 % (37.0-47.0); Hemoglobin 14.9 g/dl (12.0-16.0); Immature Granulocytes # (auto) 0.03 K/uL (0.01-0.20); Immature Granulocytes % (auto) 0.3 %; Lymphocytes # (auto) 3.23 K/uL (1.20-3.40); Lymphocytes % (auto) 37.4 %; Mean Corpuscular Hgb Conc 33.6 g/dL (32.0-36.0); Mean Corpuscular Volume 92.3 fL (80.0-100.0); Monocytes # (auto) 0.66 K/uL (0.11-0.59); Monocytes % (auto) 7.6 %; Neutrophils # (auto) 4.33 K/uL (1.40-6.50); Neutrophils % (auto) 50.2 %; Platelet Count 242 K/uL (130-400); RDW Coefficient of Variation 12.1 % (11.5-14.5); RDW Standard Deviation 41.3 fL (36.4-46.3); Red Blood Count 4.81 M/uL (4.20-5.40); White Blood Count 8.64 K/ul (4.8-10.8)
[2024-04-01 05:15] LABS: Albumin Globulin Ratio 1.8 (0.9-2); Albumin Level 4.4 gm/dl (3.4-5.0); BUN Creatinine Ratio 17.8 (10-20); Bilirubin,Total 0.5 mg/dl (0.2-1.0); Calcium 9.6 mg/dl (8.6-10.3); Creatinine Clr Calc Pharmacy 52.8 ml/min; Globulin 2.4 gm/dl (2.5-4.0); Potassium 4.1 mmol/L (3.5-5.1); Total Protein 6.8 gm/dl (6.0-8.3)
[2024-04-01 05:21] LABS: Troponin I High Sensitivity 7.2 pg/ml (0-14)
[2024-04-01] MEDS: LORazepam 1 MG TAB PO STA (05:21)
--- NOTE | 2024-04-01 06:09 | Emergency Department Note ---
Impression & Plan Seizure, Parkinsonism, Pseudoseizure ED Provider Note NAME: GREGORY LOPEZ AGE: 64 SEX: F : 1960 ARRIVES VIA: Walk-In INFORMANT: Patient, ED PROVIDER(S): Didier Forte MD CHIEF COMPLAINT: Chest pain HPI: This is a 64-year-old female presenting for chest pain. Patient states that she was awoken from sleep due to left-sided chest pain. She noted pain was in her left breast radiating into her neck and jaw and down her into her arm on the left side. She notes she is also nauseous. She notes no current shortness of breath. No pleurisy. No recent surgeries. Otherwise no history of smoking. Patient notes that she has a history of MS and had a flare starting Tuesday. She has started carbidopa levodopa yesterday night for the first time. Otherwise she had no reports no cough, congestion, sore throat, fevers. ROS: See above HPI for pertinent positives & negatives. A total of 10 systems reviewed and were otherwise negative. PAST MEDICAL HISTORY: See Below PAST SURGICAL HISTORY: See Below FAMILY HISTORY: See Below SOCIAL HISTORY: See Below HOME MEDICATIONS: See Below ALLERGIES: See Below VITALS: See Below PHYSICAL EXAMINATION: General: resting comfortably in no acute distress Head: Normocephalic and atraumatic Eyes: Normal inspection, extraocular muscles intact Ear, nose, throat: Normal external exam Neck: Normal range of motion Respiratory: lungs clear to auscultation bilaterally Cardiovascular: Regular rate/rhythm, no murmur GI: soft, nontender, no guarding or rebound Extremities: nontender, moves all extremities Neuro: The patient awake and alert, appropriately conversive, no focal deficits, symmetric faces Skin: Warm, dry, and intact MEDICAL DECISION MAKING: This is a 64-year-old female presenting for chest pain. Patient's story is somewhat concerning for ACS. She has left-sided chest pain going to the neck, jaw down to her left arm. She is also nauseous with this. She attempted to vomit but had dry heaves. Otherwise no fever, chills, pleurisy. Low concern for PE as she has no tachycardia, hypoxia, pleurisy. -ECG independently interpreted by me with normal sinus rhythm, rate of 73, normal axis, normal VT, normal QRS, normal QTc, no ST segment elevations consistent with STEMI criteria -Bloodwork is reviewed showing no significant leukocytosis, anemia, electrolyte or creatinine abnormality -Troponin currently negative -Chest Xray independently interpreted by me showing no pneumothorax, focal opacity, or pleural effusions. -Patient reevaluated and notes continued symptoms of left chest pain. -Due to continued symptoms, will admit for further ACS rule out. -[facility] hospitalist group consulted for admission Differential diagnosis: ACS, PE, pneumonia ER treatment provided: See below Independent History obtained from: Diagnostics interpreted by me: ECG: See above Cardiac Monitoring: An order was placed for continuous cardiac monitoring. The monitor shows a rate of 81 with sinus rhythm. Laboratory studies: As stated above and show below. Imaging studies: See below. Past Med/Surg History Problem List (Updated 04/01/24 @ 23:35 by Didier Forte MD) Chest pain Prediabetes History of iron deficiency Gastroparesis Asthma (Chronic) HX OF CHRONIC BRONCHIAL ASTHMA. PT IS CURRENTLY FOLLOWING [facility]IL[facility]. AND HAD BRONCH OCTOBER 2018 Pseudoseizure (Acute) No recent issues, most recent event 2020 (felt r/t MS attack), neuro workup unremarkable Hypomagnesemia (Acute) Pseudoseizure (Chronic) Seizure (Chronic 01/04/14) Hyperlipidemia Hypothyroidism GERD (gastroesophageal reflux disease) Tremor Interstitial lung disease [place] Vertigo Anxiety Odynophagia Multiple sclerosis Pulmonary nodule Pulmonary nodule Restrictive lung disease Primary hypertension Vulvar atrophy Osteopenia Parkinsonism (Acute) Medical History Knee pain, bilateral Palpitations History of diverticulosis Obesity (BMI 30-39.9) C. difficile colitis Hx of Clostridium difficile infection History of IBS Anxiety and depression Tremor Osteoarthritis History of COVID-19 Nocturnal hypoxemia Diverticular disease MS (multiple sclerosis) Surgical History History of total right knee replacement History of hemicolectomy History of lung biopsy History of carpal tunnel release History of dilatation and curettage History of repair of rotator cuff History of esophagogastroduodenoscopy (EGD) History of tooth extraction [place] teeth extracted History of arthroscopy History of colonoscopy History of bowel resection History of bronchoscopy Family History Father Myocardial infarction Cancer Hypertension Prostate cancer Melanoma Mother Cancer Sister Cancer Hypertension Brother Cancer Hypertension Melanoma Polymyositis Family/Other Breast cancer Other No family history of adverse response to anesthesia Denies family history of Ovarian cancer Colorectal cancer Social History Smoking Status: Never smoker Second Hand Exposure: No; Do You Dip or Chew Tobacco: No; Hx Alcohol Use: Yes Alcohol type: wine Hx Substance Use: No Preferred Language: Italian Communication Ability: Effective Academic Affairs Specialist Required: No Beliefs That Will Affect Care: None marital status: Current Living Situation: Spouse and Family current occupational status: disabled Feels Safe at Home: Yes Childhood Exposure to Second-Hand Smoke: No Dental Care, Regularly: Yes Physical Activity Frequency: 3-4 Times per Week Seatbelt Use: always Sunscreen Use: Yes Assistive Devices: Glasses Allergies Allergies Allergy/AdvReac Type Severity Reaction Status Date / Time azithromycin Allergy Severe Swelling Verified 04/01/24 09:34 of Lip/Tongue/Throat fish oil Allergy Severe Tongue Verified 04/01/24 09:34 swells, trouble breathing cevimeline Allergy Intermediate Anxious Verified 04/01/24 09:34 ciprofloxacin Allergy Intermediate Itchy Verified 04/01/24 09:34 clindamycin Allergy Intermediate Hives Verified 04/01/24 09:34 meloxicam Allergy Intermediate Rash Verified 04/01/24 09:34 metoclopramide Allergy Intermediate Itchy Verified 04/01/24 09:34 morphine Allergy Intermediate Local Verified 04/01/24 09:34 reaction to IV push pregabalin Allergy Intermediate Rash Verified 04/01/24 09:34 Quinolones Allergy Intermediate Hives Verified 04/01/24 09:34 cefaclor Allergy Mild Rash Verified 04/01/24 09:34 tetracycline Allergy Mild Rash Verified 04/01/24 09:34 vancomycin Allergy Mild Rash Verified 04/01/24 09:34 carbamazepine Allergy Unknown Unknown Verified 04/01/24 09:34 doxycycline AdvReac Intermediate sores on Verified 04/01/24 09:34 tongue fexofenadine AdvReac Intermediate itchy Verified 04/01/24 09:34 influenza virus vaccine AdvReac Intermediate excerbation Verified 04/01/24 09:34 trivalent of multiple sclerosis phenytoin AdvReac Mild dizzy Verified 04/01/24 09:34 Home Meds Home Medications Medication Instructions Recorded Confirmed ascorbic acid (vitamin C) 1,000 mg 1,000 mg PO QAM 04/21/18 04/01/24 tablet (Vitamin C) calcium carbonate (Calcium 600) 600 mg PO BID 04/21/18 04/01/24 multivitamin 1 tab PO QAM 04/21/18 04/01/24 cyanocobalamin (vitamin B-12) 1,000 mcg PO QAM 09/09/20 04/01/24 1,000 mcg tablet cholecalciferol (vitamin D3) 50 4,000 unit PO QAM 08/31/21 04/01/24 mcg (2,000 unit) capsule (Vitamin D3) melatonin 5 mg tablet 10 mg PO HS 04/26/22 04/01/24 carbidopa 25 mg-levodopa 100 mg 0.5 tab PO QAM 04/01/24 04/01/24 tablet Previous Rx's Medication Instructions Recorded famotidine 40 mg tablet (Pepcid) 40 mg PO QAM #90 tabs 07/20/23 pantoprazole 40 mg tablet,delayed 40 mg PO QAM #90 tabs 07/26/23 release gabapentin 600 mg tablet 600 mg PO BID #180 tabs 08/05/23 fluoxetine 20 mg tablet 20 mg PO QAM #90 tabs 08/16/23 conjugated estrogens 0.625 mg/gram 0.625 mg vaginal 2XWK #30 grams 09/28/23 vaginal cream (Premarin) Miscellaneous Pulmonary Supply #1 ea 11/07/23 amlodipine 5 mg tablet 5 mg PO QAM #90 tabs 01/30/24 levothyroxine 88 mcg tablet 88 mcg PO QAM #90 tabs 02/17/24 atorvastatin 20 mg tablet 20 mg PO HS #90 tabs 03/21/24 aripiprazole 2 mg tablet (Abilify) 2 mg PO QAM #90 tabs 03/27/24 bupropion HCl 150 mg tablet,12 hr 150 mg PO QAM #90 ea 03/27/24 sustained-release lorazepam 1 mg tablet 1 mg PO TID PRN Anxiety #90 tabs 03/30/24 Results & Data (ED) Vital Signs Vital Signs - 24 hr 04/01/24 04:32 04/01/24 04:38 04/01/24 04:45 Temperature 36.8 C Temperature Source Temporal Artery Scan Pulse Rate 82 74 77 Pulse Rate from SpO2 Sensor 77 Respiratory Rate 18 14 Respiratory Effort / Characteristics Non-Labored Spontaneous Respiratory Depth Normal Respiratory Pattern Regular Blood Pressure 128/88 136/83 Blood Pressure Mean 101 100 Pulse Oximetry 97 97 Oxygen Delivery Method Room Air Sepsis Recent Fever Within 48 Hours No Sepsis New/Unexplained Change in Mental Status No Sepsis Action Taken by Nursing No Action Required 04/01/24 05:09 04/01/24 05:30 04/01/24 06:00 Temperature Temperature Source Pulse Rate 81 71 81 Pulse Rate from SpO2 Sensor 78 70 81 Respiratory Rate 18 16 19 Respiratory Effort / Characteristics Respiratory Depth Respiratory Pattern Blood Pressure 103/63 Blood Pressure Mean 76 Pulse Oximetry 94 93 89 L Oxygen Delivery Method Sepsis Recent Fever Within 48 Hours Sepsis New/Unexplained Change in Mental Status Sepsis Action Taken by Nursing 04/01/24 06:00 04/01/24 06:27 04/01/24 06:30 Temperature Temperature Source Pulse Rate 80 Pulse Rate from SpO2 Sensor 81 Respiratory Rate 19 Respiratory Effort / Characteristics Respiratory Depth Respiratory Pattern Blood Pressure 116/73 174/127 H Blood Pressure Mean 88 145 Pulse Oximetry 94 Oxygen Delivery Method Sepsis Recent Fever Within 48 Hours Sepsis New/Unexplained Change in Mental Status Sepsis Action Taken by Nursing 04/01/24 06:30 04/01/24 07:15 04/01/24 07:54 Temperature Temperature Source Pulse Rate 74 75 Pulse Rate from SpO2 Sensor 74 77 Respiratory Rate 19 20 Respiratory Effort / Characteristics Respiratory Depth Respiratory Pattern Blood Pressure 174/127 H Blood Pressure Mean 145 Pulse Oximetry 90 92 Oxygen Delivery Method Sepsis Recent Fever Within 48 Hours Sepsis New/Unexplained Change in Mental Status Sepsis Action Taken by Nursing 04/01/24 08:00 04/01/24 08:12 04/01/24 08:27 Temperature Temperature Source Pulse Rate 74 76 Pulse Rate from SpO2 Sensor 77 Respiratory Rate 17 20 Respiratory Effort / Characteristics Respiratory Depth Respiratory Pattern Blood Pressure 117/72 Blood Pressure Mean 86 Pulse Oximetry 94 Oxygen Delivery Method Sepsis Recent Fever Within 48 Hours Sepsis New/Unexplained Change in Mental Status Sepsis Action Taken by Nursing 04/01/24 08:30 04/01/24 08:39 04/01/24 09:00 Temperature Temperature Source Pulse Rate 74 Pulse Rate from SpO2 Sensor Respiratory Rate 22 Respiratory Effort / Characteristics Respiratory Depth Respiratory Pattern Blood Pressure 123/76 112/71 Blood Pressure Mean 87 90 Pulse Oximetry Oxygen Delivery Method Sepsis Recent Fever Within 48 Hours Sepsis New/Unexplained Change in Mental Status Sepsis Action Taken by Nursing 04/01/24 09:00 04/01/24 09:03 04/01/24 09:08 Temperature Temperature Source Pulse Rate 76 86 Pulse Rate from SpO2 Sensor Respiratory Rate 16 Respiratory Effort / Characteristics Respiratory Depth Respiratory Pattern Blood Pressure 112/71 Blood Pressure Mean 90 Pulse Oximetry Oxygen Delivery Method Sepsis Recent Fever Within 48 Hours Sepsis New/Unexplained Change in Mental Status Sepsis Action Taken by Nursing 04/01/24 09:30 04/01/24 09:30 Temperature Temperature Source Pulse Rate 82 Pulse Rate from SpO2 Sensor Respiratory Rate 17 Respiratory Effort / Characteristics Respiratory Depth Respiratory Pattern Blood Pressure 113/69 Blood Pressure Mean 86 Pulse Oximetry Oxygen Delivery Method Sepsis Recent Fever Within 48 Hours Sepsis New/Unexplained Change in Mental Status Sepsis Action Taken by Nursing Laboratory Data 04/01/24 04:45 04/01/24 04:45 Lab Results 04/01/24 04/01/24 Range/Units 04:45 07:09 WBC 8.64 (4.8-10.8) K/ul RBC 4.81 (4.20-5.40) M/uL Hgb 14.9 (12.0-16.0) g/dl Hct 44.4 (37.0-47.0) % MCV 92.3 (80.0-100.0) fL MCH 31.0 (25.0-34.0) pg MCHC 33.6 (32.0-36.0) g/dL RDW Std Deviation 41.3 (36.4-46.3) fL RDW Coeff of Rocio 12.1 (11.5-14.5) % Plt Count 242 (130-400) K/uL MPV 9.0 L (9.4-12.4) fL Immature Gran % (Auto) 0.3 % Neut % (Auto) 50.2 % Lymph % (Auto) 37.4 % [place] % (Auto) 7.6 % Eos % (Auto) 3.9 % Baso % (Auto) 0.6 % Neut # (Auto) 4.33 (1.40-6.50) K/uL Lymph # (Auto) 3.23 (1.20-3.40) K/uL [place] # (Auto) 0.66 H (0.11-0.59) K/uL Eos # (Auto) 0.34 (0.00-0.50) K/uL Baso # (Auto) 0.05 (0.00-0.20) K/uL Immature Gran # (Auto) 0.03 (0.01-0.20) K/uL Sodium 138 (136-145) mmol/L Potassium 4.1 (3.5-5.1) mmol/L Chloride 103 (98-107) mmol/L Carbon Dioxide 29 (21-32) mmol/L Anion Gap 6 (3-11) BUN 18 (6-23) mg/dl Creatinine 1.01 (0.6-1.2) mg/dl Est Cr Clr Drug Dosing 52.8 ml/min eGFR 62.94 BUN/Creatinine Ratio 17.8 (10-20) Glucose 95 (70-99(Fasting)) mg/dl Calcium 9.6 (8.6-10.3) mg/dl Total Bilirubin 0.5 (0.2-1.0) mg/dl AST 23 (13-39) U/L ALT 42 (7-52) U/L Alkaline Phosphatase 76 (34-104) U/L Troponin I High Sens 7.2 6.7 (0-14) pg/ml Total Protein 6.8 (6.0-8.3) gm/dl Albumin 4.4 (3.4-5.0) gm/dl Globulin 2.4 L (2.5-4.0) gm/dl Albumin/Globulin Ratio 1.8 (0.9-2) Lipase 23 (11-82) U/L Administered Medications Discontinued Medications Al Hydrox/Mg Hydrox/Simethicone (Aluminum/Magnesium Susp 30 Ml Udc) 30 ml PO NOW STA Stop: 04/01/24 08:03 Last Admin: 04/01/24 09:04 Dose: 30 ml Documented By: WENDY Aripiprazole (Aripiprazole 1 Mg/Ml Oral Soln 150 Ml Btl) [facility]: 05/01/24 10:07 Last Admin: 04/01/24 11:54 Dose: 2 mg Documented By: WENDY Ascorbic Acid (Ascorbic Acid 500 Mg Tab) 1,000 mg PO QAM REHAN Stop: 05/01/24 10:07 Last Admin: 04/01/24 11:57 Dose: 1,000 mg Documented By: ARS Aspirin (Aspirin 81 Mg Ectab) 81 mg PO DAILY STA Stop: 04/01/24 08:03 Last Admin: 04/01/24 09:03 Dose: 81 mg Documented By: ARS Bupropion HCl (Bupropion Sr 150 Mg Tabcr) 150 mg PO [facility] Stop: 05/01/24 10:07 Last Admin: 04/01/24 11:58 Dose: 150 mg Documented By: ARS Carbidopa/Levodopa (Carbidopa/Levodopa 25/100mg Tab) 0.5 tab PO [facility] REHAN Stop: 05/01/24 10:07 Last Admin: 04/01/24 11:58 Dose: 0.5 tab Documented By: ARS Cyanocobalamin (Cyanocobalamin (B-12) 500 Mcg Tablet) 1,000 mcg PO [facility] Stop: 05/01/24 10:07 Last Admin: 04/01/24 11:59 Dose: 1,000 mcg Documented By: ARS Fluoxetine HCl (Fluoxetine Hcl 20 Mg Cap) 20 mg PO [facility] Stop: 05/01/24 10:07 Last Admin: 04/01/24 11:55 Dose: 20 mg Documented By: ARS Gabapentin (Gabapentin 600 Mg Tab) 600 mg PO BID REHAN Stop: 05/01/24 10:07 Last Admin: 04/01/24 11:55 Dose: 600 mg Documented By: ARS Famotidine (Pepcid 20mg Iv Push) 20 mg in 5 mls @ 2.5 mls/min IV NOW STA Stop: 04/01/24 08:03 Last Admin: 04/01/24 09:46 Dose: 2.5 mls/min Documented By: ARS Levothyroxine Sodium (Levothyroxine Sodium 88 Mcg Tablet) 88 mcg PO DAILYBB REHAN Stop: 05/01/24 10:44 Last Admin: 04/01/24 11:56 Dose: 88 mcg Documented By: ARS Lorazepam (Lorazepam 1 Mg Tab) 1 mg PO NOW STA Stop: 04/01/24 05:13 Last Admin: 04/01/24 05:21 Dose: 1 mg Documented By: Lorazepam (Lorazepam 2 Mg/1 Ml Vial) 0.5 mg IV NOW STA Stop: 04/01/24 06:29 Last Admin: 04/01/24 06:32 Dose: 0.5 mg Documented By: Vitamin D (Cholecalciferol 25 Mcg (1000 Units) Tab) 50 mcg PO QAM REHAN Stop: 05/01/24 10:07 Last Admin: 04/01/24 11:59 Dose: 50 mcg Documented By: WENDY Imaging Data Radiologist's Impression: Chest X-Ray 04/01/24 04:37 XR chest 1V portable CLINICAL HISTORY: Chest pain, nonspecific COMPARISON STUDY: Chest CT November 20, 2021. Chest radiograph May 09, 2023. FINDINGS: Lung volumes are normal. Lungs are clear. There is no pneumothorax or pleural effusion. Cardiac size is stable. Mediastinal contours are normal. There is no evidence for pulmonary edema. IMPRESSION: No acute cardiopulmonary findings. ACT 112: Negative or not required by law. Electronically signed by: Junior Villegas M.D. 04/01/2024 6:57 AM Discharge Plan Visit Data Chief Complaint: Chest Pain Stated Complaint: CHEST PAIN,NAUSEA ED Provider: Didier Forte Discharge Problem: Seizure, Parkinsonism, Pseudoseizure Patient Disposition: Admitted As Inpatient Condition: Good Discharge Instructions Interventions: ED Discharge Assessment Last Done: 04/01/24 10:08
[2024-04-01] MEDS: LORazepam 2 MG/1 ML VIAL IV STA (06:32)
--- NOTE | 2024-04-01 06:59 | XRay Report ---
XR chest 1V portable CLINICAL HISTORY: Chest pain, nonspecific COMPARISON STUDY: Chest CT November 20, 2021. Chest radiograph May 09, 2023. FINDINGS: Lung volumes are normal. Lungs are clear. There is no pneumothorax or pleural effusion. Car diac size is stable. Mediastinal contours are normal. There is no evidence for pulmonary edema. IMPRESSION: No acute cardiopulmonary findings. ACT 112: Negative or not required by law. Electronically signed by: Junior Villegas M.D. 04/01/2024 6:57 AM
[2024-04-01] MEDS: ASPIRIN 81 MG ECTAB PO STA (09:03)
[2024-04-01] MEDS: ALUMINUM/MAGNESIUM SUSP 30 ML UDC PO STA (09:04)
[2024-04-01] MEDS ORDERED: POLYETHYLENE (MIRALAX) 17 GM PACK PO PRN (09:40)
[2024-04-01] MEDS ORDERED: ALUMINUM/MAGNESIUM SUSP 30 ML UDC PO PRN (09:40)
[2024-04-01] MEDS ORDERED: ONDANSETRON INJ 2 MG/ML 2 ML VIAL IV PRN (09:40)
[2024-04-01] MEDS ORDERED: ACETAMINOPHEN 325 MG TAB PO PRN (09:40)
[2024-04-01] MEDS: FAMOTIDINE 20MG IV PUSH 20 MG/5 ML SYR IV STA (09:46)
[2024-04-01] MEDS ORDERED: LORazepam 1 MG TAB PO PRN (10:08)
--- NOTE | 2024-04-01 10:09 | History & Physical Report ---
<Statement entered by Oneida Guerrero MD - 04/01/24 14:30> I have reviewed vital signs, chart notes, labs and imaging. I have also discussed the management of the patient with the PATRICE and I agree with the exam findings documented in the history and physical examination and the documented assessment and plan unless otherwise stated below. Date of Service April 01, 2024 Assessment & Plan (1) Chest pain: Plan: This is a 64-year-old female with past medical history of gastroparesis, asthma, hypomagnesemia, seizures, hyperlipidemia, hypothyroidism, multiple sclerosis, hypertension who presented to the ED on 04/01/2024 with a chief complaint of chest pain. Etiology currently unclear. Given patient's unremarkable workup thus far, less likely that this is related to ACS. Low concern for PE. May be GI in origin given patient has hx of GERD and gastroparesis. EKG revealed normal sinus rhythm x 2 Troponin's negative x 2 Chest x-ray negative CBC stable BMP stable S/p Maalox, aspirin, IV Pepcid Continue to monitor symptoms as patient is currently asymptomatic Will administer carbidopa levodopa while patient is being monitored in the event that it is related to her symptoms. Discussed with the patient that it is less likely given that she had taken this medication yesterday morning and did not have symptoms until yesterday evening. Patient's blood pressure remains normotensive, hold a.m. amlodipine Echo ordered, await results Continue PPI daily Monitor on telemetry Plan Chronic conditions: Hypertension: Hold amlodipine, patient normotensive (103/63) Mental health: Aripiprazole, bupropion, fluoxetine Hyperlipidemia: Statin Parkinsonian-like symptoms: Carbidopa levodopa Neuropathy: Gabapentin Hypothyroidism: Levothyroxine Multiple sclerosis: Lorazepam 3 times daily as needed Insomnia: Melatonin GERD: Pantoprazole CODE STATUS: Full code DVT prophylaxis: Lovenox Diet: Heart healthy Disposition: Observation on telemetry History of Present Illness Primary Care Provider: Violet Ching MD This is a 64-year-old female with past medical history of gastroparesis, asthma, hypomagnesemia, seizures, hyperlipidemia, hypothyroidism, multiple sclerosis, hypertension who presented to the ED on 04/01/2024 with a chief complaint of chest pain. The patient was seen and examined this morning at bedside. She was not no acute distress at time of encounter and resting comfortably in bed. Patient states that overnight she was awoken abruptly from her sleep with left-sided chest pain. She states that this radiated to her neck and jaw down into her arm on the left side. She also felt nauseous. She did have episodes of dry heaving but no actual vomiting. Patient states that she has not had episodes like this in the past. Patient states that she also recently started carbidopa levodopa as recommended by her neurologist for parkinsonian like symptoms. She states that she did take her first dose yesterday morning. After waking up with her chest pain overnight, she did google that this medication can cause symptoms similar to what she was experiencing. She was concerned whether it was from the medication. She states that she started to go into an MS flare this past Tuesday as well. She states that she normally manages her flares with Ativan. She also has a history of gastroparesis and GERD. Patient states that she has never had any exacerbations of her GERD that have felt similar to this in the past. She states that she controls her gastroparesis with dietary modifications. At time of encounter she states that her chest pain had resolved about an hour prior to me examining her. She denied any shortness of breath. She denied any further nausea or vomiting. She denied any abdominal pain. She denied any leg edema. She denied fevers or chills. She did report fatigue this AM but attributes this to the Ativan she had overnight. While in the ED patient did have an EKG obtained which revealed normal sinus rhythm. Repeat EKG also was consistent with normal sinus rhythm. Troponins were negative x 2 and chest x-ray was negative. This morning she was given Maalox, aspirin, and IV Pepcid. Allergies Allergy/AdvReac Type Severity Reaction Status Date / Time azithromycin Allergy Severe Swelling Verified 04/01/24 09:34 of Lip/Tongue/Throat fish oil Allergy Severe Tongue Verified 04/01/24 09:34 swells, trouble breathing cevimeline Allergy Intermediate Anxious Verified 04/01/24 09:34 ciprofloxacin Allergy Intermediate Itchy Verified 04/01/24 09:34 clindamycin Allergy Intermediate Hives Verified 04/01/24 09:34 meloxicam Allergy Intermediate Rash Verified 04/01/24 09:34 metoclopramide Allergy Intermediate Itchy Verified 04/01/24 09:34 morphine Allergy Intermediate Local Verified 04/01/24 09:34 reaction to IV push pregabalin Allergy Intermediate Rash Verified 04/01/24 09:34 Quinolones Allergy Intermediate Hives Verified 04/01/24 09:34 cefaclor Allergy Mild Rash Verified 04/01/24 09:34 tetracycline Allergy Mild Rash Verified 04/01/24 09:34 vancomycin Allergy Mild Rash Verified 04/01/24 09:34 carbamazepine Allergy Unknown Unknown Verified 04/01/24 09:34 doxycycline AdvReac Intermediate sores on Verified 04/01/24 09:34 tongue fexofenadine AdvReac Intermediate itchy Verified 04/01/24 09:34 influenza virus vaccine AdvReac Intermediate excerbation Verified 04/01/24 09:34 trivalent of multiple sclerosis phenytoin AdvReac Mild dizzy Verified 04/01/24 09:34 Home Medications Medication Instructions Recorded Confirmed Type ascorbic acid (vitamin C) 1,000 mg 1,000 mg PO QAM 04/21/18 04/01/24 History tablet (Vitamin C) calcium carbonate (Calcium 600) 600 mg PO BID 04/21/18 04/01/24 History multivitamin 1 tab PO QAM 04/21/18 04/01/24 History cyanocobalamin (vitamin B-12) 1,000 mcg PO QAM 09/09/20 04/01/24 History 1,000 mcg tablet cholecalciferol (vitamin D3) 50 4,000 unit PO QAM 08/31/21 04/01/24 History mcg (2,000 unit) capsule (Vitamin D3) melatonin 5 mg tablet 10 mg PO HS 04/26/22 04/01/24 History famotidine 40 mg tablet (Pepcid) 40 mg PO QAM #90 tabs 07/20/23 04/01/24 Rx pantoprazole 40 mg tablet,delayed 40 mg PO QAM #90 tabs 07/26/23 04/01/24 Rx release gabapentin 600 mg tablet 600 mg PO BID #180 tabs 08/05/23 04/01/24 Rx fluoxetine 20 mg tablet 20 mg PO QAM #90 tabs 08/16/23 04/01/24 Rx conjugated estrogens 0.625 mg/gram 0.625 mg vaginal 2XWK #30 grams 09/28/23 04/01/24 Rx vaginal cream (Premarin) Miscellaneous Pulmonary Supply #1 ea 11/07/23 03/27/24 Rx amlodipine 5 mg tablet 5 mg PO QAM #90 tabs 01/30/24 04/01/24 Rx levothyroxine 88 mcg tablet 88 mcg PO QAM #90 tabs 02/17/24 04/01/24 Rx atorvastatin 20 mg tablet 20 mg PO HS #90 tabs 03/21/24 04/01/24 Rx aripiprazole 2 mg tablet (Abilify) 2 mg PO QAM #90 tabs 03/27/24 04/01/24 Rx bupropion HCl 150 mg tablet,12 hr 150 mg PO QAM #90 ea 03/27/24 04/01/24 Rx sustained-release lorazepam 1 mg tablet 1 mg PO TID PRN Anxiety #90 tabs 03/30/24 04/01/24 Rx carbidopa 25 mg-levodopa 100 mg 0.5 tab PO QAM 04/01/24 04/01/24 History tablet Past Med/Surg History Problem List (Updated 04/01/24 @ 10:10 by Rhonda Olson PA-C) Chest pain Prediabetes History of iron deficiency Gastroparesis Asthma (Chronic) HX OF CHRONIC BRONCHIAL ASTHMA. PT IS CURRENTLY FOLLOWING [facility]. AND HAD BRONCH OCTOBER 2018 Pseudoseizure (Acute) No recent issues, most recent event 2020 (felt r/t MS attack), neuro workup unremarkable Hypomagnesemia (Acute) Pseudoseizure (Chronic) Seizure (Chronic 01/04/14) Hyperlipidemia Hypothyroidism GERD (gastroesophageal reflux disease) Tremor Interstitial lung disease [place] Vertigo Anxiety Odynophagia Multiple sclerosis Pulmonary nodule Pulmonary nodule Restrictive lung disease Primary hypertension Vulvar atrophy Osteopenia Parkinsonism Medical History Knee pain, bilateral Palpitations History of diverticulosis Obesity (BMI 30-39.9) C. difficile colitis Hx of Clostridium difficile infection History of IBS Anxiety and depression Tremor Osteoarthritis History of COVID-19 Nocturnal hypoxemia Diverticular disease MS (multiple sclerosis) Surgical History History of total right knee replacement History of hemicolectomy History of lung biopsy History of carpal tunnel release History of dilatation and curettage History of repair of rotator cuff History of esophagogastroduodenoscopy (EGD) History of tooth extraction [place] teeth extracted History of arthroscopy History of colonoscopy History of bowel resection History of bronchoscopy Family History Father Myocardial infarction Cancer Hypertension Prostate cancer Melanoma Mother Cancer Sister Cancer Hypertension Brother Cancer Hypertension Melanoma Polymyositis Family/Other Breast cancer Other No family history of adverse response to anesthesia Denies family history of Ovarian cancer Colorectal cancer Social History Smoking Status: Never smoker Second Hand Exposure: No; Do You Dip or Chew Tobacco: No; Hx Alcohol Use: Yes Alcohol type: wine Preferred Language: Maldivian Communication Ability: Effective Registrar College Or University Required: No Beliefs That Will Affect Care: None marital status: Current Living Situation: Spouse current occupational status: disabled Feels Safe at Home: Yes Childhood Exposure to Second-Hand Smoke: No Dental Care, Regularly: Yes Physical Activity Frequency: 3-4 Times per Week Seatbelt Use: always Sunscreen Use: Yes Assistive Devices: Walker Physical Exam 2 Constitutional: WD/WN, vitals as above Eyes: PERRL, conjunctivae normal, anicteric sclerae Respiratory: normal respiratory effort, lungs clear to auscultation Cardiovascular: RRR, no murmur, no edema Gastrointestinal (Abdomen): normal bowel sounds, soft, nontender, no hepatosplenomegaly Skin: no rashes, warm and dry Psychiatric: A+Ox3, euthymic affect Results & Data Results & Data Vital Signs (Past 12 Hours) Vital Signs Temp Pulse Resp BP Pulse Ox O2 Del Method 04/01/24 09:08 86 04/01/24 05:09 81 18 103/63 94 04/01/24 04:45 77 14 136/83 97 04/01/24 04:38 74 04/01/24 04:32 36.8 C 82 18 128/88 97 Room Air Laboratory Results 04/01/24 04:45 04/01/24 04:45 Diagnostic Findings Chest X-Ray 04/01/24 04:37 XR chest 1V portable CLINICAL HISTORY: Chest pain, nonspecific COMPARISON STUDY: Chest CT November 20, 2021. Chest radiograph May 09, 2023. FINDINGS: Lung volumes are normal. Lungs are clear. There is no pneumothorax or pleural effusion. Cardiac size is stable. Mediastinal contours are normal. There is no evidence for pulmonary edema. IMPRESSION: No acute cardiopulmonary findings. PG Care Time/CCT Total # of Minutes Spent Total Time Spent with Patient: Total time spent is greater than 50% in coordination of care (as documented) at patient's floor/unit and/or counseling patient: Coding Level of Care Code 73001 INT INP/OBS CARE 2/55MIN Diagnoses Chest pain, unspecified type R07.9 Chest pain type: unspecified (1) Chest pain Chest pain type: unspecified Qualified Code(s): R07.9 - Chest pain, unspecified
[2024-04-01] MEDS: ARIPIprazole 1 MG/ML ORAL SOLN 150 ML BTL PO SCH (11:54)
[2024-04-01] MEDS: GABAPENTIN 600 MG TAB PO SCH (11:55)
[2024-04-01] MEDS: FLUoxetine HCL 20 MG CAP PO SCH (11:55)
[2024-04-01] MEDS: LEVOTHYROXINE SODIUM 88 MCG TABLET PO SCH (11:56)
[2024-04-01] MEDS: ASCORBIC ACID 500 MG TAB PO SCH (11:57)
[2024-04-01] MEDS: CARBIDOPA/LEVODOPA 25/100MG TAB PO SCH (11:58)
[2024-04-01] MEDS: buPROPion SR 150 MG TABCR PO SCH (11:58)
[2024-04-01] MEDS: CYANOCOBALAMIN (B-12) 500 MCG TABLET PO SCH (11:59)
[2024-04-01] MEDS: CHOLECALCIFEROL 25 MCG (1000 UNITS) TAB PO SCH (11:59)
--- NOTE | 2024-04-01 13:53 | Electrocardiogram Report ---
Test Reason : Blood Pressure : */* mmHG Vent. Rate : 73 BPM Atrial Rate : 73 BPM P-R Int : 190 ms QRS Dur : 86 ms QT Int : 384 ms P-R-T Axes : 34 9 27 degrees QTcB Int : 423 ms Normal sinus rhythm Normal ECG When compared with ECG of 01-Apr-2024 04:38, (unconfirmed) No significant change was found Confirmed by Tim Childs ([id number]) on 04/01/2024 1:52:42 PM Referred By: REFERRED SELF Confirmed By: Tim Childs
--- NOTE | 2024-04-01 13:58 | Electrocardiogram Report ---
Test Reason : Blood Pressure : */* mmHG Vent. Rate : 73 BPM Atrial Rate : 73 BPM P-R Int : 178 ms QRS Dur : 86 ms QT Int : 382 ms P-R-T Axes : 49 25 37 degrees QTcB Int : 420 ms Normal sinus rhythm Low voltage QRS Borderline ECG When compared with ECG of 09-May-2023 09:49, Criteria for Anterior infarct are no longer Present Confirmed by Tim Childs ([id number]) on 04/01/2024 1:57:52 PM Referred By: REFERRED SELF Confirmed By: Tim Childs
[2024-04-01 15:01] VITALS: BP 111/72; RESP 14; TEMP 97.7; O2SAT 91
[2024-04-01 16:09] VITALS: PULSE 87
--- NOTE | 2024-04-01 18:29 | Discharge Summary ---
Discharge Summary Date of Service April 01, 2024 Principal Dx & Hospital Course #1 = Principal Diagnosis (1) Chest pain: This is a 64-year-old female with past medical history of gastroparesis, asthma, hypomagnesemia, seizures, hyperlipidemia, hypothyroidism, multiple sclerosis, hypertension who presented to the ED on 04/01/2024 with a chief complaint of chest pain. She awoke from sleeping with left sided chest pain radiating to L arm and L neck/jaw. Associated with nausea, no diaphroresis. Never had similar pain before. It resolved after arriving in the ED without any specific treatment. Serial EKGs were normal and serial HS-troponin was negative. No evidence of ACS. She did not have hypoxia, tachycardia, pain radiating to the back, fever/leukocytosis and pain resolved promptly. Considered other immediately life-threatening causes of chest pain such as PE or aortic dissection but these are very unlikely based on her presentation and resolution of symptoms. Considered angina. This was atypical in that it occurred at rest / while sleeping. She does have left chest wall tenderness to palpation on exam. She has been riding stationary bike 15 minutes at a time for past 3 weeks, enough to elevate her heart rate, without exertional chest pain or dyspnea. She does have hypertension and HLD. Her father had CAD but not early onset and her other immediate relatives do/did not have CAD. HEART score is 3 so she is low risk fo r major cardiac event in near future. She had no recurrence of symptoms throughout today, and was continued on her sinemet which did not provoke any recurrent symptoms. It is possible that pain was gastrointestinal or musculoskeletal in origin. TTE was obtained, however there is a delay in interpretation that may take 24- 36h. I think that she is low risk to discharge home at this time. I will call her with the Echo results and make arrangements for appropriate follow up or further testing. Plan Chronic conditions: Hypertension: amlodipine, normotensive (103/63) Mental health: Aripiprazole, bupropion, fluoxetine Hyperlipidemia: Statin Parkinsonian-like symptoms: Carbidopa levodopa Neuropathy: Gabapentin Hypothyroidism: Levothyroxine Multiple sclerosis: Lorazepam 3 times daily as needed Insomnia: Melatonin GERD: Pantoprazole Notes For Next Care Provider Echo report pending Consider outpatient stress test if any persistence/recurrence of symptoms or concerning Echo findings. Has been seen by [facility] cardiology in Jun 2021 for preop clearance and assessed as low risk for knee surgery. Reassuring TTE in 2020 and negative ambulatory cardiac monitoring in 2021. Medication Changes From Visit None Admission HPI Per Admitting Provider This is a 64-year-old female with past medical history of gastroparesis, asthma, hypomagnesemia, seizures, hyperlipidemia, hypothyroidism, multiple sclerosis, hypertension who presented to the ED on 04/01/2024 with a chief complaint of chest pain. The patient was seen and examined this morning at bedside. She was not no acute distress at time of encounter and resting comfortably in bed. Patient states that overnight she was awoken abruptly from her sleep with left-sided chest pain. She states that this radiated to her neck and jaw down into her arm on the left side. She also felt nauseous. She did have episodes of dry heaving but no actual vomiting. Patient states that she has not had episodes like this in the past. Patient states that she also recently started carbidopa levodopa as recommended by her neurologist for parkinsonian like symptoms. She states that she did take her first dose yesterday morning. After waking up with her chest pain overnight, she did google that this medication can cause symptoms similar to what she was experiencing. She was concerned whether it was from the medication. She states that she started to go into an MS flare this past Tuesday as well. She states that she normally manages her flares with Ativan. She also has a history of gastroparesis and GERD. Patient states that she has never had any exacerbations of her GERD that have felt similar to this in the past. She states that she controls her gastroparesis with dietary modifications. At time of encounter she states that her chest pain had resolved about an hour prior to me examining her. She denied any shortness of breath. She denied any further nausea or vomiting. She denied any abdominal pain. She denied any leg edema. She denied fevers or chills. She did report fatigue this AM but attributes this to the Ativan she had overnight. While in the ED patient did have an EKG obtained which revealed normal sinus rhythm. Repeat EKG also was consistent with normal sinus rhythm. Troponins were negative x 2 and chest x-ray was negative. This morning she was given Maalox, aspirin, and IV Pepcid. Discharge Exam PHYSICAL EXAMINATION Last 24h vital signs reviewed, see documentation in flowsheet General: comfortable appearing, no distress HEENT: Normocephalic, atraumatic, pupils round and equal, sclerae anicteric, no conjunctival injection, moist mucus membranes Lungs: Normal respiratory effort. Clear to auscultation bilaterally. No RRW Heart: Regular rate and rhythm, no murmurs. No JVD she does have left anterior chest wall tenderness as well as tenderness of left ribs at mid axillary line Abdomen: Soft, nontender, nondistended. Bowel sounds present. Extremities: Warm, dry, well-perfused. No extremity edema. Neuro: Alert and oriented x 4, face symmetric, moves 4 extremities well Psych: Normal affect and behavior Discharge Plan Discharge Items Patient Disposition: Home - Self-Care Reason For Visit: CHEST PAIN Discharge Diagnosis: chest pain Condition on Discharge: Good Activity: Resume your previous activity Non-emergency contact: Primary Care Provider Call non-emergency contact if: you have any medication questions and your symptoms worsen Follow-up/Referrals: Violet Ching MD [Primary Care Provider] - Diet: Heart Healthy Addtl Attending Provider Instructions: You were evaluated for chest pain. Fortunately it resolved and we don't see any signs of a heart attack or other serious problem. The pain may have been gastrointestinal or musculoskeletal in origin. I doubt it was triggered by the sinemet. Its possible that it could be heart pain (angina) but this seems unlikely because it happened at rest and you haven't had any exertional symptoms, and based on your testing and risk factors the risk that you could have a serious heart problem in the near future is low. We obtained an Echo (heart ultrasound), but unfortunately its not interpreted yet and may take up to another 24h to get results. I think you're safe to go home tonight and I will call you with the Echo results - probably tomorrow afternoon/evening or at the latest Tuesday. If there are any concerning findings, we'll make an appropriate plan for follow up and further testing. It's ok to keep riding your stationary bike as long as it isn't triggering chest pain or excessive/unexpected shortness of breath. It was a pleasure taking care of you in the hospital, Oneida Guerrero MD Pending Studies at Discharge: Yes (Echocardiogram report) Stand-Alone Forms: My [facility], Smoking Cessation Medications and DC Order Prescriptions: Continued famotidine [Pepcid] 40 mg tablet 40 mg PO QAM Qty: 90 3RF pantoprazole 40 mg tablet,delayed release (DR/EC) 40 mg PO QAM Qty: 90 3RF gabapentin 600 mg tablet 600 mg PO BID Qty: 180 3RF fluoxetine 20 mg tablet 20 mg PO QAM Qty: 90 3RF amlodipine 5 mg tablet 5 mg PO QAM Qty: 90 3RF levothyroxine 88 mcg tablet 88 mcg PO QAM Qty: 90 3RF atorvastatin 20 mg tablet 20 mg PO HS Qty: 90 3RF bupropion HCl 150 mg tablet sustained-release 12 hr 150 mg PO QAM Qty: 90 3RF aripiprazole [Abilify] 2 mg tablet 2 mg PO QAM Qty: 90 3RF lorazepam 1 mg tablet 1 mg PO TID PRN (Reason: Anxiety) Qty: 90 0RF Rx Instructions: Ongoing therapy Supervising Physician Violet Ching MD [employer] [id number] (DME) Miscellaneous Pulmonary Supply Misc See Rx Instructions .MEDSUPPLY Qty: 1 0RF Rx Instructions: Discontinue oxygen Premarin 0.625 mg/gram cream 0.625 mg VAGINAL 2XWK Qty: 30 3RF multivitamin Tablet 1 tab PO QAM ascorbic acid (vitamin C) [Vitamin C] 1,000 mg Tablet 1,000 mg PO QAM calcium carbonate [Calcium 600] 600 mg calcium (1,500 mg) Tablet 600 mg PO BID melatonin 5 mg tablet 10 mg PO HS cyanocobalamin (vitamin B-12) 1,000 mcg Tablet 1,000 mcg PO QAM cholecalciferol (vitamin D3) [Vitamin D3] 50 mcg (2,000 unit) Capsule 4,000 unit PO QAM carbidopa-levodopa 25-100 mg tablet 0.5 tab PO QAM Discharge Orders: Discharge Order (Routine); Ordered 04/01/24 Ordered By: Oneida Guerrero Admission Data Admit Date/Time: 04/01/24 09:40 Attending Provider: Oneida Guerrero Admit Provider: Oneida Guerrero Primary Care Provider: Violet Ching Other Providers: Oneida Guerrero Hospital Stay Data Consultations 04/01/24 08:28 ED Decision to Admit Stat Pending Results Patient Have Any Pending Studies at Discharge: Yes (Echocardiogram report) Discharge Instructions Given to Patient (Per Discharging Provider) You were evaluated for chest pain. Fortunately it resolved and we don't see any signs of a heart attack or other serious problem. The pain may have been gastrointestinal or musculoskeletal in origin. I doubt it was triggered by the sinemet. Its possible that it could be heart pain (angina) but this seems unlikely because it happened at rest and you haven't had any exertional symptoms, and based on your testing and risk factors the risk that you could have a serious heart problem in the near future is low. We obtained an Echo (heart ultrasound), but unfortunately its not interpreted yet and may take up to another 24h to get results. I think you're safe to go home tonight and I will call you with the Echo results - probably tomorrow afternoon/evening or at the latest Tuesday. If there are any concerning findings, we'll make an appropriate plan for follow up and further testing. It's ok to keep riding your stationary bike as long as it isn't triggering chest pain or excessive/unexpected shortness of breath. It was a pleasure taking care of you in the hospital, Oneida Guerrero MD Total Time Total Time Spent Total Time Spent (In Minutes): I spent 25 minutes in addition to time spent on clinical activities for admission this morning. Coding Level of Care Code None Diagnoses Chest pain, unspecified type R07.9 Chest pain type: unspecified
--- NOTE | 2024-04-01 19:40 | XCELERA ---
[id number]
[2024-04-01] MEDS ORDERED: ATORVASTATIN 20 MG TAB PO SCH (21:00)
[2024-04-01] MEDS ORDERED: ENOXAPARIN INJ 40 MG/0.4 ML SYR SQ SCH (21:00)
[2024-04-01] MEDS ORDERED: MELATONIN 3 MG TAB PO SCH (21:00)
[2024-04-02] MEDS ORDERED: CALCIUM CARBONATE 1250MG TAB PO SCH (09:00)
[2024-04-02] MEDS ORDERED: amLODIPine BESYLATE 5 MG TAB PO SCH (09:00)
--- NOTE | 2024-04-02 16:45 | Communication Note ---
Date of Service: April 02, 2024 I called Penelope this afternoon she is doing well, no further chest pain episodes. I told her the Echo was very reassuring, normal EF no rwma's no significant valvular disease. She will follow up with primary care.
== END 2024-04-01 19:15 | disposition home or self-care (01) ==
LOC: EDINP 04:24 → ED 04:24 → 2N 10:08